=== PATIENT | male | born 1970 | race Caucasian/White ===

== ENCOUNTER 2021-12-03 16:09 | Inpatient (IN) | payer BC ==
[~2021-12-03 16:09] MED LIST: VANCOMYCIN 2,500 MG in SODIUM CHLORIDE 0.9% 500 ML 500 ML IVPB ONE
[2021-12-03 20:28] LABS: Glucose,Whole Blood 163 mg/dL (70-110)
[2021-12-03] MEDS ORDERED: LORazepam 1 MG TAB PO PRN (22:53)
[2021-12-03] MEDS ORDERED: NITROGLYCERIN SL TABS 0.4 MG TAB SUBLINGUAL PRN (22:55)
[2021-12-03] MEDS: KETOROLAC 15 MG/ML 1 ML VIAL IVP SCH (23:23)
[2021-12-03] MEDS: HYDROmorphone 1 MG/ML 1 ML SYRINGE IVP PRN (23:24)
[2021-12-03] MEDS: CEFEPIME 2 GM in SODIUM CHLORIDE 0.9% 100 ML IVPB SCH (23:24)
[2021-12-03] MEDS: ACETAMINOPHEN TAB 325 MG TAB PO PRN (23:36)
[2021-12-04 06:00] LABS: Glucose,Whole Blood 176 mg/dL (70-110)
[2021-12-04] MEDS: KETOROLAC 15 MG/ML 1 ML VIAL IVP SCH ×3 (06:07→17:26)
[2021-12-04] MEDS: PANTOPRAZOLE 40 MG TABLET PO SCH (06:08)
[2021-12-04] MEDS: HYDROmorphone 1 MG/ML 1 ML SYRINGE IVP PRN ×2 (06:08→22:16)
[2021-12-04] MEDS: INSULIN ASPART (NovoLOG) 100 UNIT/ML VIAL SQ SCH ×4 (06:08→22:15)
[2021-12-04 06:22] LABS: Basophils # (A) 0.1 k/uL (0-0.2); Basophils % (A) 1 %; Eosinophils # (A) 0.1 k/uL (0-0.7); Eosinophils % (A) 0 %; HCT 43.1 % (39.0-53.0); HGB 13.6 gm/dL (13.0-17.5); Lymphocytes # (A) 1.5 k/uL (1.0-4.8); Lymphocytes % (A) 9 %; MCH 28.1 pg (25.0-35.0); MCHC 31.6 g/dL (31.0-37.0); MCV 89.1 fL (80.0-100.0); Mean Platelet Volume 8.6; Monocytes # (A) 1.3 k/uL (0-1.0); Monocytes % (A) 8 %; Neutrophils % (A) 80 %; Platelet Count 486 k/uL (150-450); RBC 4.84 m/uL (4.30-5.90); RDW 12.6 % (11.5-15.5); WBC 16.3 k/uL (3.8-10.6)
[2021-12-04 06:36] LABS: African American GFR (CKD) >90 (>60 ml/min/1.73 sqM); Anion Gap 9 mmol/L; Blood Urea Nitrogen 13 mg/dL (9-20); Calcium 8.2 mg/dL (8.4-10.2); Carbon Dioxide 26 mmol/L (22-30); Chloride 96 mmol/L (98-107); Glucose 177 mg/dL (74-99); INR 1.1 (<1.2); Non-African American GFR(CKD) >90 (>60 ml/min/1.73 sqM); Partial Thromboplastin Time 26.8 sec (22.0-30.0); Potassium 4.7 mmol/L (3.5-5.1); Prothrombin Time 11.3 sec (9.0-12.0); Sodium 131 mmol/L (137-145)
[2021-12-04] MEDS: ALBUTEROL NEBULIZED 2.5 MG/3 ML INHALATION PRN ×4 (07:01→20:21)
[2021-12-04] MEDS ORDERED: VANCOMYCIN IV PER PHARMACY 1 EACH MISC MISCELLANE PRN (07:48)
[2021-12-04] MEDS: CEFEPIME 2 GM in SODIUM CHLORIDE 0.9% 100 ML IVPB SCH ×2 (08:28→15:17)
[2021-12-04] MEDS: FUROSEMIDE 10 MG/ML 4 ML VIAL IV SCH (08:28)
[2021-12-04] MEDS: ENOXAPARIN 40 MG/0.4 ML SYRINGE SQ SCH (08:28)
[2021-12-04 08:29] LABS: C Reactive Protein 23.3 mg/dL (<1.0)
[2021-12-04] MEDS: INSULIN DETEMIR (LEVEMIR) 100 UNIT/ML SYR SQ SCH (08:32)
[2021-12-04 08:39] LABS: ALT 29 U/L (4-49); Albumin 2.8 g/dL (3.5-5.0); Total Bilirubin 0.5 mg/dL (0.2-1.3); Total Protein 6.3 g/dL (6.3-8.2)
[2021-12-04] MEDS ORDERED: FENOFIBRATE 160 MG TAB PO SCH (09:00)
[2021-12-04 09:03] LABS: AST 36 U/L (17-59); Alkaline Phosphatase 169 U/L (38-126)
[2021-12-04] MEDS: COLCHICINE 0.6 MG EACH PO SCH (10:52)
--- NOTE | 2021-12-04 11:05 | P.PN ---
Subjective Patient was seen in consultation yesterday at [facility] He was admitted with an abnormal EKG This EKG showed inferior ST elevation with significant fairly diffuse LA depression consistent with pericarditis His history is consistent with pericarditis He had pneumonitis in October and was treated with oral doxycycline However he did not improve and when he came in yesterday he had a large right- sided pleural effusion which seems to be a loculated effusion His 2-D echo showed preserved LV systolic function at [facility] with very prominent posterior pericardial stripe consistent with pericarditis Yesterday I did not hear a rub His vitals are stable He was subsequently seen by the drag out worker and was transferred here for percutaneous lysis and drainage of the loculated effusion The plan is that if this does not work he will need a thoracoscopic drainage Yesterday he had an episode of atrial fibrillation but he is back in sinus rhythm Today he is resting comfortably in bed I don't hear clear-cut rub although there is a scratchy systolic sound No S3 gallop Reduced breath sounds right side with dullness to percussion No lower extremity edema Orthopnea TSH is normal at 3.1 C-reactive protein elevated BUN and creatinine normal Platelet count elevated White count elevated Impression Recent pneumonitis with a loculated right-sided effusion which is large Awaiting drainage of this loculated effusion Pericarditis Normal LV function by 2-D echo yesterday at [facility] Brief episode of atrial fibrillation, back in sinus rhythm now Plan Continue colchicine DC IV Lasix and switch to by mouth Lasix Continue diabetes management Statins Objective - Vital Signs Vital signs: Vital Signs Temp 98.1 F 12/04/21 08:00 Pulse 70 12/04/21 10:49 Resp 18 12/04/21 08:00 BP 135/63 12/04/21 08:00 Pulse Ox 94 L 12/04/21 08:00 FiO2 Intake & Output 12/03/21 12/04/21 12/04/21 18:59 06:59 18:59 Intake Total 590 Balance 590 Weight 121.3 kg 119.2 kg Intake: Intake, IV Titration 50 Amount Cefepime 2 gm In Sodium 50 Chloride 0.9% 100 ml @ 25 mls/hr IVPB Q8HR [facility] Rx# :[id number] Oral 540 - Labs CBC & Chem 7: 12/04/21 05:54 12/04/21 05:54 Labs: Abnormal Lab Results - Last 24 Hours (Table) 12/03/21 12/04/21 12/04/21 Range/Units 20:20 05:54 05:54 WBC 16.3 H (3.8-10.6) k/uL Plt Count 486 H (150-450) k/uL Neutrophils # 13.0 H (1.3-7.7) k/uL Monocytes # 1.3 H (0-1.0) k/uL ESR (0-15) mm/hr Sodium 131 L (137-145) mmol/L Chloride 96 L (98-107) mmol/L Creatinine 0.49 L (0.66-1.25) mg/dL Glucose 177 H (74-99) mg/dL POC Glucose (mg/dL) 163 H (70-110) mg/dL Calcium 8.2 L (8.4-10.2) mg/dL Alkaline Phosphatase 169 H (38-126) U/L C-Reactive Protein 23.3 H (<1.0) mg/dL Albumin 2.8 L (3.5-5.0) g/dL 12/04/21 12/04/21 Range/Units 05:54 05:58 WBC (3.8-10.6) k/uL Plt Count (150-450) k/uL Neutrophils # (1.3-7.7) k/uL Monocytes # (0-1.0) k/uL ESR 85 H (0-15) mm/hr Sodium (137-145) mmol/L Chloride (98-107) mmol/L Creatinine (0.66-1.25) mg/dL Glucose (74-99) mg/dL POC Glucose (mg/dL) 176 H (70-110) mg/dL Calcium (8.4-10.2) mg/dL Alkaline Phosphatase (38-126) U/L C-Reactive Protein (<1.0) mg/dL Albumin (3.5-5.0) g/dL
[2021-12-04] MEDS ORDERED: METOPROLOL TARTRATE 25 MG TAB PO STA (11:44)
[2021-12-04 11:57] LABS: Glucose,Whole Blood 225 mg/dL (70-110)
[2021-12-04] MEDS ORDERED: ALBUTEROL HFA INHALER INHALATION PRN (12:19)
[2021-12-04] MEDS ORDERED: DEXTROSE 50% SYRINGE 50 ML IVP PRN ×2 (12:21)
[2021-12-04] MEDS: ATORVASTATIN 40 MG TAB PO SCH (12:44)
--- NOTE | 2021-12-04 13:02 | P.CNPUL ---
History of Present Illness Consult date: 12/04/21 Reason for consult: dyspnea (Eliquis), pleural effusion History of present illness: 51-year-old male patient was seen in consultation at [facility] on 12/03/2021. I initiated the transfer to our hospital as the patient has a complicated loculated right-sided pleural effusion/empyema and the patient needed further expertise interventional radiology and thoracic surgery. The patient's history dates back to mid October when he came into [facility] with a right lung pneumonia. The patient was given antibiotics and steroids and went home. He continued to be symptomatic. He saw his primary care physician in one antibiotics were given. Subsequently, he started chest pain improved and the patient started having progressive worsening shortness of breath and some ongoing chest pain along the right chest. He came into [facility] and had significant this patient the right lung and a CAT scan of the chest showed a loculated right-sided pleural effusion with multiple pockets and right basilar atelectasis/consolidation. Left lung was essentially clear. The patient was started on a combination of antibiotics. I saw the patient and I recommended transfer. The patient's white cell count is at 16.3. Sodium level is at 131 with a BUN of 13 and a creatinine of 0.4. His current pulse ox is 94% on room air oxygen. He is obese and he uses inhalers for COPD. He is also known to have diabetes mellitus and hyperlipidemia. No 70 coronary artery disease. He has obstructive sleep apnea Review of Systems Constitutional: Reports fatigue, Reports lethargy, Reports malaise, Reports poor appetite Eyes: denies as per HPI, denies blurred vision, denies bulging eye, denies decreased vision, denies diplopia, denies discharge, denies dry eye, denies irritation, denies itching, denies pain, denies photophobia, denies loss of per ipheral vision, denies loss of vision, denies tunnel vision/blind spots Ears: deny: decreased hearing, ear discharge, earache, tinnitus Ears, nose, mouth and throat: Reports as per HPI Breasts: absent: as per HPI, gynecomastia Cardiovascular: Reports decreased exercise tolerance, Reports dyspnea on exertion Respiratory: Reports dyspnea Gastrointestinal: Reports as per HPI Genitourinary: Reports as per HPI Musculoskeletal: Reports as per HPI Musculoskeletal: absent: ankle pain, ankle stiffness, ankle swelling, as per HPI, elbow pain, elbow stiffness, elbow swelling, foot pain, foot stiffness, foot swelling, hand pain, hand stiffness, hand swelling, hip pain, hip stiff ness, hip swelling, knee pain, knee stiffness, knee swelling, shoulder pain, shoulder stiffness, shoulder swelling, wrist pain, wrist stiffness, wrist swelling Integumentary: Reports as per HPI Neurological: Reports as per HPI Psychiatric: Reports as per HPI Endocrine: Reports as per HPI Hematologic/Lymphatic: Reports as per HPI Allergic/Immunologic: Reports as per HPI Past Medical History Past Medical History: COPD, Diabetes Mellitus, GERD/Reflux, Sleep Apnea/CPAP/BIPAP Additional Past Medical History / Comment(s): does not wear a cpap History of Any Multi-Drug Resistant Organisms: None Reported Additional Past Surgical History / Comment(s): right wrist carparal tunnel Past Anesthesia/Blood Transfusion Reactions: No Reported Reaction Past Psychological History: No Psychological Hx Reported Smoking Status: Former smoker Past Alcohol Use History: None Reported Past Drug Use History: None Reported - Past Family History Father Family Medical History: Asthma, COPD Additional Family Medical History / Comment(s): smoker, welder experimental Mother Family Medical History: Cancer Additional Family Medical History / Comment(s): small cell lung, multiple stent, Medications and Allergies Home Medications Medication Instructions Recorded Confirmed Type Albuterol Inhaler [Ventolin Hfa 2 puff INHALATION RT-Q6H PRN 12/03/21 12/03/21 History Inhaler] Albuterol Nebulized [Ventolin 2.5 mg INHALATION RT-Q6H PRN 12/03/21 12/03/21 History Nebulized] Fenofibrate,Micronized 134 mg PO DAILY 12/03/21 12/03/21 History [Fenofibrate] Fluticasone/Umeclidin/Vilanter 2 puff INHALATION RT-DAILY 12/03/21 12/03/21 History [Trelegy Ellipta 100-62.5-25] Ibuprofen [Motrin] 600 mg PO Q8HR PRN 12/03/21 12/03/21 History Omeprazole 40 mg PO DAILY 12/03/21 12/03/21 History Pioglitazone [Actos] 30 mg PO DAILY 12/03/21 12/03/21 History sitaGLIPtin [Januvia] 100 mg PO DAILY 12/03/21 12/03/21 History Allergies Allergy/AdvReac Type Severity Reaction Status Date / Time insect venom Allergy Severe Anaphylaxis Verified 12/03/21 18:44 Physical Exam Vitals: Vital Signs Temp Pulse Pulse Resp BP Pulse Ox 12/04/21 11:49 67 18 12/04/21 11:05 72 12/04/21 10:49 70 12/04/21 08:00 98.1 F 67 18 135/63 94 L 12/04/21 07:20 68 12/04/21 07:04 68 12/04/21 04:00 98.3 F 103 H 24 135/79 94 L 12/03/21 23:30 101.8 F H 105 H 28 H 151/73 98 12/03/21 19:30 98.8 F 26 H 163/75 98 12/03/21 17:52 98.7 F 112 H 27 H 153/74 98 Intake and Output 12/03/21 12/04/21 12/04/21 22:59 06:59 14:59 Intake Total 590 Balance 590 Intake: Intake, IV Titration 50 Amount Cefepime 2 gm In Sodium 50 Chloride 0.9% 100 ml @ 25 mls/hr IVPB Q8HR [facility] Rx# :[id number] Oral 540 Other: Weight 121.3 kg 119.2 kg Gen. appearance, comfortable likely distress, currently on room air oxygen Head exam was generally normal. There was no scleral icterus or corneal arcus. Mucous membranes were moist. Neck was supple and without jugular venous distension, thyromegaly, or carotid bruits. Carotids were easily palpable bilaterally. There was no adenopathy. Lungs are diminished in the right lung base along with dullness to percussion in the right lung base. Cardiac exam revealed the PMI to be normally situated and sized. The rhythm was regular and no extrasystoles were noted during several minutes of auscultation. The first and second heart sounds were normal and physiologic splitting of the second heart sound was noted. There were no murmurs, rubs, clicks, or gallops. Abdominal exam revealed normal bowel sounds. The abdomen was soft, non-tender, and without masses, organomegaly, or appreciable enlargement of the abdominal aorta. Examination of the extremities revealed easily palpable radial, femoral and pedal pulses. There was no cyanosis, clubbing or edema. Examination of the skin revealed no evidence of significant rashes, suspicious appearing nevi or other concerning lesions. Neurologically, the patient is awake and alert and the patient does not have any focal neurological deficit. Cranial nerves are essentially intact. Results - Laboratory Findings CBC and BMP: 12/04/21 05:54 12/04/21 05:54 PT/INR, D-dimer PT 11.3 sec (9.0-12.0) 12/04/21 05:54 INR 1.1 (<1.2) 12/04/21 05:54 Abnormal lab findings: Abnormal Labs 12/03/21 12/04/21 12/04/21 20:20 05:54 05:54 WBC 16.3 H Plt Count 486 H Neutrophils # 13.0 H Monocytes # 1.3 H ESR Sodium 131 L Chloride 96 L Creatinine 0.49 L Glucose 177 H POC Glucose (mg/dL) 163 H Calcium 8.2 L Alkaline Phosphatase 169 H C-Reactive Protein 23.3 H Albumin 2.8 L 12/04/21 12/04/21 12/04/21 05:54 05:58 11:49 WBC Plt Count Neutrophils # Monocytes # ESR 85 H Sodium Chloride Creatinine Glucose POC Glucose (mg/dL) 176 H 225 H Calcium Alkaline Phosphatase C-Reactive Protein Albumin - Diagnostic Findings Chest x-ray: image reviewed CT scan - chest: image reviewed Assessment and Plan Plan: Loculated parapneumonic right-sided pleural effusion/possible empyema involving the right lung Recent right lower lobe pneumonia. On outpatient basis Shortness of breath secondary to above Chest pain secondary to above Diabetes mellitus maintained on Actos and Januvia on outpatient basis COPD maintained on Trelegy Ellipta on outpatient basis Obstructive sleep apnea not utilizing a device Plan Continue current antibiotic coverage with cefepime and vancomycin Interventional radiology consultation for a pigtail catheter insertion with subsequent alteplase treatment in an attempt to treat this loculated right-sided pleural effusion/empyema conservatively. If this intervention fails, we'll consult thoracic surgery for a thoracoscopic evaluation and drainage of the right lung. Continue pain control Resume all medications Incentive spirometer Blood sugar management We'll continue to follow
[2021-12-04] MEDS ORDERED: VANCOMYCIN 2,000 MG in SODIUM CHLORIDE 0.9% 500 ML 500 ML IVPB SCH (15:00)
[2021-12-04] MEDS: VANCOMYCIN 1,750 MG in SODIUM CHLORIDE 0.9% 500 ML 500 ML IVPB SCH ×2 (15:12→19:49)
[2021-12-04] MEDS: MORPHINE SULFATE 4 MG/ML SYRINGE IVP PRN (15:21)
[2021-12-04 16:39] LABS: Glucose,Whole Blood 213 mg/dL (70-110)
[2021-12-04 22:14] LABS: Glucose,Whole Blood 143 mg/dL (70-110)
[2021-12-05] MEDS: KETOROLAC 15 MG/ML 1 ML VIAL IVP SCH ×5 (00:37→23:02)
[2021-12-05] MEDS: CEFEPIME 2 GM in SODIUM CHLORIDE 0.9% 100 ML IVPB SCH ×3 (00:38→19:45)
[2021-12-05] MEDS: VANCOMYCIN 1,750 MG in SODIUM CHLORIDE 0.9% 500 ML 500 ML IVPB SCH ×3 (05:09→20:33)
[2021-12-05] MEDS: HYDROmorphone 1 MG/ML 1 ML SYRINGE IVP PRN ×3 (05:11→20:38)
[2021-12-05 06:05] LABS: Glucose,Whole Blood 92 mg/dL (70-110)
[2021-12-05] MEDS: INSULIN ASPART (NovoLOG) 100 UNIT/ML VIAL SQ SCH ×4 (06:08→20:33)
[2021-12-05] MEDS: PANTOPRAZOLE 40 MG TABLET PO SCH (06:50)
[2021-12-05] MEDS: SYMBICORT 80-4.5 MCG INHALER INHALATION SCH ×3 (07:43→20:14)
[2021-12-05] MEDS: IPRATROPIUM 0.5 MG/2.5 ML NEBU INHALATION SCH ×4 (07:43→20:11)
[2021-12-05] MEDS: FENOFIBRATE 160 MG TAB PO SCH (08:27)
[2021-12-05] MEDS: ATORVASTATIN 40 MG TAB PO SCH (08:27)
[2021-12-05] MEDS: COLCHICINE 0.6 MG EACH PO SCH (08:28)
--- NOTE | 2021-12-05 08:47 | P.GSCN ---
History of Present Illness Consult date: 12/05/21 Reason for Consult: Complicated right-sided loculated pleural effusion/empyema Requesting physician: Linette Morgan History of present illness: This is a 50-year-old obese gentleman who follows on an outpatient basis with Dr. Leobardo Wellington for primary care. He has a previous medical history of COPD, type 2 diabetes, obstructive sleep apnea without home CPAP use, GERD, and previous tobacco dependence with recent cessation. Apparently in mid October he reported to [facility] with a right-sided lung pneumonia. He was started on antibiotics and steroids and eventually sent home, however he c ontinued to be symptomatic. He saw his PCP and more antibiotics were given. Subsequently he developed chest pain and progressive shortness of breath. He again reported to [facility], CT scan of the chest demonstrated loculated right-sided pleural effusion with multiple pockets and right basilar atelectasis/consolidation. He was started on a combination of antibiotics and was seen by pulmonary medicine. Recommendations were made for transfer to [facility] for placement of pigtail catheter with thoracic surgery consultation to instill lytic therapy. Review of Systems Review of systems was completed and was negative except as noted - Constitutional Reports fatigue, Reports lethargy, Reports malaise, Reports poor appetite - Cardiovascular Reports decreased exercise tolerance, Reports dyspnea on exertion Past Medical History Past Medical History: COPD, Diabetes Mellitus, GERD/Reflux, Sleep Apnea/CPAP/BIPAP Additional Past Medical History / Comment(s): does not wear a cpap History of Any Multi-Drug Resistant Organisms: None Reported Additional Past Surgical History / Comment(s): right wrist carparal tunnel Past Anesthesia/Blood Transfusion Reactions: No Reported Reaction Past Psychological History: No Psychological Hx Reported Smoking Status: Former smoker Past Alcohol Use History: None Reported Past Drug Use History: None Reported Additional History: Quit smoking 3 weeks ago, prior to that smoked 3 packs a day for 40 years - Past Family History Father Family Medical History: Asthma, COPD Additional Family Medical History / Comment(s): smoker, welder setter electron beam machine; from COPD Mother Family Medical History: Cancer Additional Family Medical History / Comment(s): small cell lung, multiple stent; from lung cancer Medications and Allergies Home Medications Medication Instructions Recorded Confirmed Type Albuterol Inhaler [Ventolin Hfa 2 puff INHALATION RT-Q6H PRN 12/03/21 12/03/21 History Inhaler] Albuterol Nebulized [Ventolin 2.5 mg INHALATION RT-Q6H PRN 12/03/21 12/03/21 History Nebulized] Fenofibrate,Micronized 134 mg PO DAILY 12/03/21 12/03/21 History [Fenofibrate] Fluticasone/Umeclidin/Vilanter 2 puff INHALATION RT-DAILY 12/03/21 12/03/21 History [Trelegy Ellipta 100-62.5-25] Ibuprofen [Motrin] 600 mg PO Q8HR PRN 12/03/21 12/03/21 History Omeprazole 40 mg PO DAILY 12/03/21 12/03/21 History Pioglitazone [Actos] 30 mg PO DAILY 12/03/21 12/03/21 History sitaGLIPtin [Januvia] 100 mg PO DAILY 12/03/21 12/03/21 History Allergies Allergy/AdvReac Type Severity Reaction Status Date / Time insect venom Allergy Severe Anaphylaxis Verified 12/03/21 18:44 Surgical - Exam Vital Signs Temp Pulse Resp BP Pulse Ox 98.7 F 112 H 27 H 153/74 98 12/03/21 17:52 12/03/21 17:52 12/03/21 17:52 12/03/21 17:52 12/03/21 17:52 CONSTITUTIONAL: Awake and alert, appears comfortable, cooperative, well- developed, well-nourished, no pain, no acute distress, eating breakfast without difficulty EYES: Pupils equal, round, reactive to light, normal ocular movement ENT: Moist mucous membranes without oral lesions present NECK: No masses, no bruits, trachea midline RESPIRATORY: Lungs sounds very diminished on the right side. Respirations even, nonlabored. Currently on room air with oxygen saturation 95%. Strong cough. No chest wall deformities. No clubbing or cyanosis present CARDIOVASCULAR: S1, S2 present. Regular rate and rhythm, sinus rhythm on telemetry. Palpable peripheral pulses bilaterally. Trace bilateral lower extremity edema present. No calf pain or tenderness noted. GASTROINTESTINAL: Abdomen soft, nontender, nondistended, obese without masses or organomegaly noted. There is no rebound or guarding present. Active bowel sounds present 4 quadrants. GENITOURINARY: Deferred INTEGUMENTARY: Skin is warm and dry with evidence of good perfusion. NEUROLOGIC: Cranial nerves II through XII intact, normal coordination, no obvious motor or sensory deficits, speech is normal MUSKULOSKELETAL: Able to move all extremities, strength equal bilaterally, nor mal posture PSYCHIATRIC: Alert and oriented to person place and time, appropriate affect, intact judgment and insight Results - Labs 12/06/21 08:05 12/06/21 08:05 Abnormal Lab Results - Last 24 Hours (Table) 12/04/21 12/04/21 12/04/21 Range/Units 05:54 05:54 11:49 ESR 85 H (0-15) mm/hr POC Glucose (mg/dL) 225 H (70-110) mg/dL Alkaline Phosphatase 169 H (38-126) U/L Albumin 2.8 L (3.5-5.0) g/dL 12/04/21 12/04/21 Range/Units 16:29 22:12 ESR (0-15) mm/hr POC Glucose (mg/dL) 213 H 143 H (70-110) mg/dL Alkaline Phosphatase (38-126) U/L Albumin (3.5-5.0) g/dL Microbiology - Last 24 Hours (Table) 12/04/21 15:30 Sputum Culture - Preliminary Sputum Diabetes panel 12/04/21 Range/Units 05:54 AST 36 (17-59) U/L ALT 29 (4-49) U/L Alkaline Phosphatase 169 H (38-126) U/L Total Protein 6.3 (6.3-8.2) g/dL Albumin 2.8 L (3.5-5.0) g/dL Thyroid panel 12/04/21 Range/Units 05:54 TSH 3.140 (0.465-4.680) mIU/L Calcium panel 12/04/21 Range/Units 05:54 Albumin 2.8 L (3.5-5.0) g/dL Pituitary panel 12/04/21 Range/Units 05:54 TSH 3.140 (0.465-4.680) mIU/L Adrenal panel 12/04/21 Range/Units 05:54 Total Bilirubin 0.5 (0.2-1.3) mg/dL AST 36 (17-59) U/L ALT 29 (4-49) U/L Alkaline Phosphatase 169 H (38-126) U/L Total Protein 6.3 (6.3-8.2) g/dL Albumin 2.8 L (3.5-5.0) g/dL Assessment and Plan Assessment: 1. Loculated parapneumonic right-sided pleural effusion/possible empyema involving the right lung 2. Recent history of right lower lobe pneumonia 3. Shortness of breath, chest pain secondary to above 4. COPD 5. Previous heavy tobacco dependence with recent cessation 6. Obstructive sleep apnea without home CPAP use 7. Type 2 diabetes 8. GERD Plan: The patient was seen and examined sitting up in a recliner on the cardiac stepdown unit eating breakfast in no acute distress. Remains in sinus rhythm, hemodynamically stable. Currently on room air with oxygen saturation in the mid 90s. The case was discussed in detail with Dr. Stanley and Dr. Morgan. Our recommendations are for a pigtail catheter be to be placed by interventional radiology with subsequent instillation of lytic therapy. This was discussed in detail with the patient, risks and benefits were reviewed, all questions were answered. Interventional radiology has been consulted. Lovenox will be held this morning in anticipation of placement of catheter. Incentive spirometry ordered and should be encouraged. Continue IV antibiotics per infectious disease. GI/DVT prophylaxis. Medical management of other comorbidities per primary care service. More recommendations to follow. Thank you Dr. Morgan for this consult. We look forward to working with you in the care of your patient. I have personally seen and examined the patient, performed the documentation and the assessment and plan as written. Number of minutes spent on the visit: 30. GIOVANI Marino Patient seen and examined. All diagnostic studies reviewed. Para-pneumonic effusion warranting pigtail insertion for fibrinolytic Rx as a first step. Discussed with Dr Morgan. Time spent 30 minutes. ANGELES STANLEY MD
--- NOTE | 2021-12-05 09:29 | P.HPIM ---
History of Present Illness H&P Date: 12/04/21 This is a 50-year-old male who was recently admitted at [facility] although sent here for further evaluation from cardiothoracic surgery for pericarditis and is being closely monitored. Multiple medical consultations placed including infectious disease, cardiology, pulmonary and cardiothoracic surgery. Patient was found to have flulike symptoms and right side when pain and found to have loculated pleural effusions on the right from CT with a peripneumonic effusion. Patient was placed on IV antibiotics with infectious disease consultation. Patient started having worsening chest pain and shortness of breath and went back to the hospital and sent over to [facility] for further evaluation. Initially patient's white count was elevated and sodium was slightly low and patient's oxygen saturations were above 90% on room air. Patient does have a past medical history of COPD, diabetes, GERD, sleep apnea but does not wear a CPAP, former smoker. Patient follows with Dr. Wellington in the outpatient setting. Sputum culture was obtained and pending. REVIEW OF SYSTEMS: CONSTITUTIONAL: No fever, no malaise, no fatigue. Patient reports chills and shortness of breath HEENT: No recent visual problems or hearing problems. Denied any sore throat. CARDIOVASCULAR: No chest pain, orthopnea, PND, no palpitations, no syncope. PULMONARY no hemoptysis. Reports chills, shortness of breath, cough GASTROINTESTINAL: No diarrhea, no nausea, no vomiting, no abdominal pain. NEUROLOGICAL: No headaches, no weakness, no numbness. HEMATOLOGICAL: Denies any bleeding or petechiae. GENITOURINARY: Denies any burning micturition, frequency, or urgency. MUSCULOSKELETAL/RHEUMATOLOGICAL: Denies any joint pain, swelling, or any muscle pain. reports resolved right hip pain ENDOCRINE: Denies any polyuria or polydipsia. The rest of the 14-point review of systems is negative. PHYSICAL EXAMINATION: GENERAL: The patient is alert and oriented x3, not in any acute distress. Well developed, well nourished. HEENT: Pupils are round and equally reacting to light. EOMI. No scleral icterus. No conjunctival pallor. Normocephalic, atraumatic. No pharyngeal erythema. No thyromegaly. CARDIOVASCULAR: S1 and S2 present. No murmurs, rubs, or gallops. PULMONARY: Bilateral diminished breath sounds with some scattered rhonchi noted. ABDOMEN: Soft, nontender, nondistended, normoactive bowel sounds. No palpable organomegaly. MUSCULOSKELETAL: No joint swelling or deformity. EXTREMITIES: No cyanosis, clubbing, or pedal edema. NEUROLOGICAL: Gross neurological examination did not reveal any focal deficits. SKIN: No rashes. Assessment: Right side chest pain with loculated pleural effusion Peripneumonic effusion secondary to pleural effusion with possible empyema of the right lung Recent right lower lobe pneumonia, was on antibiotics and steroids outpatient Shortness of breath secondary to above Diabetes mellitus type 2 COPD, not in exacerbation History of obstructive sleep apnea although does not wear a CPAP Gastroesophageal reflux disease Former smoker GI prophylaxis DVT prophylaxis: on eliquis Full code Plan: Recommend IV antibiotics with infectious disease consultation Cardiothoracic surgery consulted and pending at this time Pulmonary and cardiology consulted and following Recommend resuming home meds and continuing with breathing inhalational treatments Patient is being started on IV Lasix along with colchicine per cardiology Recommend repeat labs Recommend Accu-Cheks before meals and at bedtime along with sliding scale and long-acting insulin The impression and plan of care has been dictated as a scribe by Roya Chandra, Nurse Practitioner as directed. MD Tammy I have performed a history and examination and MDM of this patient, discussed the same with the dictator, and agree with the dictator's assessment and plan as written ,documented as a scribe. Based on total visit time, I have performed more than 50% of the visit. Past Medical History Past Medical History: COPD, Diabetes Mellitus, GERD/Reflux, Sleep Apnea/CPAP/BIPAP Additional Past Medical History / Comment(s): does not wear a cpap History of Any Multi-Drug Resistant Organisms: None Reported Additional Past Surgical History / Comment(s): right wrist carparal tunnel Past Anesthesia/Blood Transfusion Reactions: No Reported Reaction Past Psychological History: No Psychological Hx Reported Smoking Status: Former smoker Past Alcohol Use History: None Reported Past Drug Use History: None Reported - Past Family History Father Family Medical History: Asthma, COPD Additional Family Medical History / Comment(s): smoker, steel welder Mother Family Medical History: Cancer Additional Family Medical History / Comment(s): small cell lung, multiple stent, Medications and Allergies Home Medications Medication Instructions Recorded Confirmed Type Albuterol Inhaler [Ventolin Hfa 2 puff INHALATION RT-Q6H PRN 12/03/21 12/03/21 History Inhaler] Albuterol Nebulized [Ventolin 2.5 mg INHALATION RT-Q6H PRN 12/03/21 12/03/21 H istory Nebulized] Fenofibrate,Micronized 134 mg PO DAILY 12/03/21 12/03/21 History [Fenofibrate] Fluticasone/Umeclidin/Vilanter 2 puff INHALATION RT-DAILY 12/03/21 12/03/21 History [Trelegy Ellipta 100-62.5-25] Ibuprofen [Motrin] 600 mg PO Q8HR PRN 12/03/21 12/03/21 History Omeprazole 40 mg PO DAILY 12/03/21 12/03/21 History Pioglitazone [Actos] 30 mg PO DAILY 12/03/21 12/03/21 History sitaGLIPtin [Januvia] 100 mg PO DAILY 12/03/21 12/03/21 History Allergies Allergy/AdvReac Type Severity Reaction Status Date / Time insect venom Allergy Severe Anaphylaxis Verified 12/03/21 18:44 Physical Exam Vitals: Vital Signs Temp Pulse Pulse Resp BP Pulse Ox 12/04/21 11:49 67 18 12/04/21 11:05 72 12/04/21 10:49 70 12/04/21 08:00 98.1 F 67 18 135/63 94 L 12/04/21 07:20 68 12/04/21 07:04 68 12/04/21 04:00 98.3 F 103 H 24 135/79 94 L 12/03/21 23:30 101.8 F H 105 H 28 H 151/73 98 12/03/21 19:30 98.8 F 26 H 163/75 98 12/03/21 17:52 98.7 F 112 H 27 H 153/74 98 Intake and Output 12/03/21 12/04/21 12/04/21 22:59 06:59 14:59 Intake Total 590 Balance 590 Intake: Intake, IV Titration 50 Amount Cefepime 2 gm In Sodium 50 Chloride 0.9% 100 ml @ 25 mls/hr IVPB Q8HR [facility] Rx# :[id number] Oral 540 Other: Weight 121.3 kg 119.2 kg Results CBC & Chem 7: 12/04/21 05:54 12/04/21 05:54 Labs: Abnormal Lab Results - Last 24 Hours (Table) 12/03/21 12/04/21 12/04/21 Range/Units 20:20 05:54 05:54 WBC 16.3 H (3.8-10.6) k/uL Plt Count 486 H (150-450) k/uL Neutrophils # 13.0 H (1.3-7.7) k/uL Monocytes # 1.3 H (0-1.0) k/uL ESR (0-15) mm/hr Sodium 131 L (137-145) mmol/L Chloride 96 L (98-107) mmol/L Creatinine 0.49 L (0.66-1.25) mg/dL Glucose 177 H (74-99) mg/dL POC Glucose (mg/dL) 163 H (70-110) mg/dL Calcium 8.2 L (8.4-10.2) mg/dL Alkaline Phosphatase 169 H (38-126) U/L C-Reactive Protein 23.3 H (<1.0) mg/dL Albumin 2.8 L (3.5-5.0) g/dL 12/04/21 12/04/21 12/04/21 Range/Units 05:54 05:58 11:49 WBC (3.8-10.6) k/uL Plt Count (150-450) k/uL Neutrophils # (1.3-7.7) k/uL Monocytes # (0-1.0) k/uL ESR 85 H (0-15) mm/hr Sodium (137-145) mmol/L Chloride (98-107) mmol/L Creatinine (0.66-1.25) mg/dL Glucose (74-99) mg/dL POC Glucose (mg/dL) 176 H 225 H (70-110) mg/dL Calcium (8.4-10.2) mg/dL Alkaline Phosphatase (38-126) U/L C-Reactive Protein (<1.0) mg/dL Albumin (3.5-5.0) g/dL Thrombosis Risk Factor Assmnt - DVT/VTE Prophylaxis DVT/VTE Prophylaxis: Pharmacologic Prophylaxis ordered - Choose All That Apply Any of the Below Risk Factors Present?: Yes Each Factor Represents 1 point: Abnormal pulmonary function (COPD), Age 41-60 years, Obesity (BMI >25) Other Risk Factors: No Thrombosis Risk Factor Assessment Total Risk Factor Score: 3 Thrombosis Risk Factor Assessment Level: Moderate Risk Assessment and Plan Time with Patient: Greater than 30
[2021-12-05] MEDS: INSULIN DETEMIR (LEVEMIR) 100 UNIT/ML SYR SQ SCH (10:20)
[2021-12-05] MEDS ORDERED: VANCOMYCIN TROUGH DUE 1 EACH MISC MISCELLANE ONE (11:00)
--- NOTE | 2021-12-05 11:06 | P.PN ---
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 Patient was transferred from [facility] secondary to loculated right-sided pleural effusion. Patient has a history of pneumonia and was treated last month with antibiotics. Patient had a echocardiogram completed at [facility] which revealed normal LV function. Patient is sitting up in the chair this morning. He denies chest pain or pressure. Denies SOB. PHYSICAL EXAM: VITAL SIGNS: Reviewed. GENERAL: Well-developed in no acute distress. NECK: Supple. No JVD or thyromegaly LUNGS: Respirations even and unlabored. Lungs diminished on the right side. HEART: Regular rate and rhythm. S1 and S2 heard. EXTREMITIES: Normal range of motion. No clubbing or cyanosis. Peripheral pulses intact. No lower extremity edema ASSESSMENT: Pericarditis Recent pneumonia/pneumonitis Loculated right-sided pleural effusion Isolated episode of atrial fibrillation, per cardiology documentation 12/04/2021 Diabetes COPD Former nicotine dependence PLAN: Continue current cardiac medications Discontinue IV lasix. Begin oral lasix. CT Surgery and pulmonary following. Plan for pigtail catheter insertion by IR. Further recommendations pending patient course Nurse practitioner note has been reviewed by physician. Signing provider agrees with the documented findings, assessment, and plan of care. Objective - Vital Signs Vital signs: Vital Signs Temp 97.8 F 12/05/21 07:44 Pulse 90 12/05/21 08:59 Resp 20 12/05/21 08:59 BP 149/76 12/05/21 07:44 Pulse Ox 98 12/05/21 07:44 FiO2 Intake & Output 12/04/21 12/05/21 12/05/21 18:59 06:59 18:59 Intake Total 118 1040 180 Output Total 450 Balance 118 590 180 Weight 120.6 kg Intake: Intake, IV Titration 500 Amount Vancomycin 1,750 mg In 500 Sodium Chloride 0.9% 500 ml 500 ml @ 167 mls/hr IVPB Q8H [facility] Rx#: [id number] Oral 118 540 180 Output: Urine 450 Other: Voiding Method Toilet Urinal - Labs CBC & Chem 7: 12/04/21 05:54 12/04/21 05:54 Labs: Abnormal Lab Results - Last 24 Hours (Table) 12/04/21 12/04/21 12/04/21 Range/Units 11:49 16:29 22:12 POC Glucose (mg/dL) 225 H 213 H 143 H (70-110) mg/dL Microbiology - Last 24 Hours (Table) 12/04/21 15:30 Gram Stain - Preliminary Sputum Sputum Culture - Preliminary
[2021-12-05 11:34] LABS: HCT 44.8 % (39.0-53.0); HGB 13.8 gm/dL (13.0-17.5); Hypochromasia Slight; MCH 27.6 pg (25.0-35.0); MCHC 30.8 g/dL (31.0-37.0); MCV 89.4 fL (80.0-100.0); Mean Platelet Volume 8.1; Platelet Count 555 k/uL (150-450); RBC 5.01 m/uL (4.30-5.90); RDW 12.7 % (11.5-15.5); WBC 10.6 k/uL (3.8-10.6)
[2021-12-05 11:43] LABS: African American GFR (CKD) >90 (>60 ml/min/1.73 sqM); Anion Gap 10 mmol/L; Blood Urea Nitrogen 13 mg/dL (9-20); Calcium 8.3 mg/dL (8.4-10.2); Carbon Dioxide 29 mmol/L (22-30); Chloride 93 mmol/L (98-107); Glucose 163 mg/dL (74-99); Non-African American GFR(CKD) >90 (>60 ml/min/1.73 sqM); Potassium 4.1 mmol/L (3.5-5.1); Sodium 132 mmol/L (137-145)
[2021-12-05] MEDS ORDERED: ALTEPLASE 10 MG in SODIUM CHLORIDE 0.9% 50 ML IRRIGATION ONE (12:55)
[2021-12-05] MEDS ORDERED: DORNASE ALFA 5 MG in SODIUM CHLORIDE 0.9% 50 ML IRRIGATION ONE (12:55)
[2021-12-05 19:09] LABS: Glucose,Whole Blood 146 mg/dL (70-110)
[2021-12-05 19:09] LABS: Glucose,Whole Blood 262 mg/dL (70-110)
[2021-12-05] MEDS: ENOXAPARIN 40 MG/0.4 ML SYRINGE SQ SCH (19:44)
[2021-12-05] MEDS: ALBUTEROL NEBULIZED 2.5 MG/3 ML INHALATION PRN (20:13)
[2021-12-05 20:17] LABS: Glucose,Whole Blood 207 mg/dL (70-110)
--- NOTE | 2021-12-05 21:09 | P.PN ---
Subjective Progress Note Date: 12/05/21 Principal diagnosis: Right sided empyema Patient was seen today on 12/05/2021, patient had a right sided pigtail catheter placement by interventional radiology, and gross pus is being drained from the right sided empyema. Patient is already being seen by infectious disease, and abigail fields will be seen by thoracic surgery for possible alteplase infusion in the right pleural space. Clinically the patient is feeling much better. Breathing a lot easier. Cultures are pending. WBC count today is 10.6 hemoglobin is 13.8 electrolytes are normal renal profile is normal Objective - Vital Signs Vital signs: Vital Signs Temp 97.3 F L 12/05/21 11:25 Pulse 87 12/05/21 20:25 Resp 20 12/05/21 12:18 BP 158/77 12/05/21 12:18 Pulse Ox 97 12/05/21 12:18 FiO2 Intake & Output 12/05/21 12/05/21 12/06/21 06:59 18:59 06:59 Intake Total 1040 180 Output Total 450 Balance 590 180 Weight 120.6 kg Intake: Intake, IV Titration 500 Amount Vancomycin 1,750 mg In 500 Sodium Chloride 0.9% 500 ml 500 ml @ 167 mls/hr IVPB Q8H [facility] Rx#: [id number] Oral 540 180 Output: Urine 450 Other: Voiding Method Toilet Urinal # Voids 1 - Exam Physical Exam: Revealed 50-year-old white male in no distress on room air. Head: Atraumatic, normocephalic. HEENT:[Neck is supple.] [No neck masses.] [No thyromegaly.] [No JVD.] Chest: [Diminished breath sounds and dullness at the right base, pigtail catheter connected to Pleur-evac is noted with gross pus draining into the pl eural VAC. Cardiac Exam: [Normal S1 and S2, no S3 gallop, no murmur.] Abdomen: [Soft, nontender, no megaly, no rebound, no guarding, normal bowel sounds.] Extremities: [No clubbing, no edema, no cyanosis.] Neurological Exam: [No focal neurologic deficit.] Alert oriented 3 focal deficits. Psychiatric: Normal mood, affect and normal mental status examination. Skin: No rashes. - Labs CBC & Chem 7: 12/05/21 11:06 12/05/21 11:06 Labs: Abnormal Lab Results - Last 24 Hours (Table) 12/04/21 12/05/21 12/05/21 Range/Units 22:12 11:06 11:06 MCHC 30.8 L (31.0-37.0) g/dL Plt Count 555 H (150-450) k/uL Sodium (137-145) mmol/L Chloride (98-107) mmol/L Creatinine (0.66-1.25) mg/dL Glucose (74-99) mg/dL POC Glucose (mg/dL) 143 H (70-110) mg/dL Hemoglobin A1c 11.4 H (0.0-6.0) % Calcium (8.4-10.2) mg/dL 12/05/21 12/05/21 12/05/21 Range/Units 11:06 12:57 16:39 MCHC (31.0-37.0) g/dL Plt Count (150-450) k/uL Sodium 132 L (137-145) mmol/L Chloride 93 L (98-107) mmol/L Creatinine 0.57 L (0.66-1.25) mg/dL Glucose 163 H (74-99) mg/dL POC Glucose (mg/dL) 146 H 262 H (70-110) mg/dL Hemoglobin A1c (0.0-6.0) % Calcium 8.3 L (8.4-10.2) mg/dL 12/05/21 Range/Units 20:15 MCHC (31.0-37.0) g/dL Plt Count (150-450) k/uL Sodium (137-145) mmol/L Chloride (98-107) mmol/L Creatinine (0.66-1.25) mg/dL Glucose (74-99) mg/dL POC Glucose (mg/dL) 207 H (70-110) mg/dL Hemoglobin A1c (0.0-6.0) % Calcium (8.4-10.2) mg/dL Microbiology - Last 24 Hours (Table) 12/04/21 15:30 Gram Stain - Preliminary Sputum Sputum Culture - Preliminary Assessment and Plan Assessment: Impression: Acute right sided empyema, status post pigtail catheter placement by interventional radiology Recent right lower lobe pneumonia treated on outpatient basis Type 2 diabetes. COPD, maintained on Trelegy Ellipta on outpatient basis Obstructive sleep apnea syndrome not compliant with CPAP. Recommendation: Continue antibiotics cefepime/vancomycin and cultures are pending. Continue bronchodilators. Thoracic surgery to see on consultation for alteplase infusion Infectious disease to see on consultation. Continue incentive spirometry Resume home meds We will continue to follow Time with Patient: Less than 30
--- NOTE | 2021-12-05 23:31 | P.PN ---
Subjective Progress Note Date: 12/05/21 This is a 50-year-old male who was recently admitted at [facility] although sent here for further evaluation from cardiothoracic surgery for pericarditis and is being closely monitored. Multiple medical consultations placed including infectious disease, cardiology, pulmonary and cardiothoracic surgery. Patient was found to have flulike symptoms and right side when pain and found to have loculated pleural effusions on the right from CT with a peripneumonic effusion. Patient was placed on IV antibiotics with infectious disease consultation. Patient started having worsening chest pain and shortness of breath and went back to the hospital and sent over to [facility] for further evaluation. Initially patient's white count was elevated and sodium was slightly low and patient's oxygen saturations were above 90% on room air. Patient does have a past medical history of COPD, diabetes, GERD, sleep apnea but does not wear a CPAP, former smoker. Patient follows with Dr. Wellington in the outpatient setting. Sputum culture was obtained and pending. 12/05/2021 Patient is seen and evaluated this morning and follow-up and has been evaluated by cardiothoracic surgery recommending interventional radiology consultation for possible pigtail placement. Patient is also being followed closely by infectious disease and maintained on IV antibiotics and will continue. Awaiting pigtail catheter placement for right side empyema. Continue with pain management. Patient is afebrile and denies chest pain. Encouraged incentive spirometer use at least 10 times per hour while awake. Recommend repeat labs and possible chest xray in the am. Review of systems: Constitutional: No reports of fatigue, fever, or chills Cardiovascular: No reports of chest pain or palpitations Respiratory: No reports of worsening shortness of breath or cough GI: No reports of nausea, vomiting, or diarrhea : No reports of dysuria or retention Neurovascular: No reports of weakness or numbness All medications have been reviewed Active Medications Acetaminophen (Acetaminophen Tab 325 Mg Tab) 650 mg PO Q4HR PRN PRN Reason: Fever and/or Mild Pain Last Admin: 12/03/21 23:36 Dose: 650 mg Albuterol Sulfate (Albuterol Hfa Inhaler) 2 puff INHALATION RT-Q6H PRN PRN Reason: Shortness Of Breath Albuterol Sulfate (Albuterol Nebulized 2.5 Mg/3 Ml) 2.5 mg INHALATION RT-Q6H PRN PRN Reason: Shortness Of Breath Last Admin: 12/04/21 20:21 Dose: 2.5 mg Atorvastatin Calcium (Atorvastatin 40 Mg Tab) 40 mg PO DAILY [facility] Last Admin: 12/05/21 08:27 Dose: 40 mg Budesonide/Formoterol Fumarate (Symbicort 80-4.5 Mcg Inhaler) 2 puff INHALATION RT-BID [facility] Last Admin: 12/05/21 07:43 Dose: 2 puff Colchicine (Colchicine 0.6 Mg Each) 0.6 mg PO DAILY [facility] Last Admin: 12/05/21 08:28 Dose: 0.6 mg Dextrose/Water (Dextrose 50% Syringe 50 Ml) 25 ml IVP PER PROTOCOL PRN; Protocol PRN Reason: Hypoglycemia Dextrose/Water (Dextrose 50% Syringe 50 Ml) 50 ml IVP PER PROTOCOL PRN; Protocol PRN Reason: Hypoglycemia Enoxaparin Sodium (Enoxaparin 40 Mg/0.4 Ml Syringe) 40 mg SQ DAILY [facility] Last Admin: 12/04/21 08:28 Dose: 40 mg Fenofibrate (Fenofibrate 160 Mg Tab) 160 mg PO DAILY [facility] Last Admin: 12/05/21 08:27 Dose: 160 mg Furosemide (Furosemide 40 Mg Tab) 40 mg PO DAILY [facility] Hydromorphone HCl (Hydromorphone 1 Mg/Ml 1 Ml Syringe) 1 mg IVP Q2HR PRN PRN Reason: Pain Last Admin: 12/05/21 11:17 Dose: 1 mg Cefepime HCl 2 gm/ Sodium (Chloride) 100 mls @ 25 mls/hr IVPB Q8HR [facility]; Protocol Last Admin: 12/05/21 10:20 Dose: 25 mls/hr Vancomycin HCl 1,750 mg/ (Sodium Chloride) 500 mls @ 167 mls/hr IVPB Q8H [facility] Last Admin: 12/05/21 05:09 Dose: 167 mls/hr Insulin Aspart (Insulin Aspart (Novolog) 100 Unit/Ml Vial) 0 unit SQ ACHS [facility]; Protocol Last Admin: 12/05/21 06:08 Dose: Not Given Insulin Detemir (Insulin Detemir (Levemir) 100 Unit/Ml Syr) 40 unit SQ DAILY@0900 [facility] Last Admin: 12/05/21 10:20 Dose: 40 unit Ipratropium Goehner (Ipratropium 0.5 Mg/2.5 Ml Nebu) 0.5 mg INHALATION RT-QID [facility] Last Admin: 12/05/21 11:20 Dose: Not Given Ketorolac Tromethamine (Ketorolac 15 Mg/Ml 1 Ml Vial) 15 mg IVP Q6HR [facility] Stop: 12/06/21 22:53 Last Admin: 12/05/21 05:09 Dose: 15 mg Lorazepam (Lorazepam 1 Mg Tab) 1 mg PO Q6HR PRN PRN Reason: Anxiety Morphine Sulfate (Morphine Sulfate 4 Mg/Ml Syringe) 4 mg IVP Q2HR PRN PRN Reason: Pain Last Admin: 12/04/21 15:21 Dose: 4 mg Nitroglycerin (Nitroglycerin Sl Tabs 0.4 Mg Tab) 0.4 mg SUBLINGUAL Q5M PRN PRN Reason: Chest Pain Ondansetron HCl (Ondansetron 4 Mg/2 Ml Vial) 4 mg IVP Q4HR PRN PRN Reason: Nausea And Vomiting Pantoprazole Sodium (Pantoprazole 40 Mg Tablet) 40 mg PO AC-BRKFST [facility] Last Admin: 12/05/21 06:50 Dose: 40 mg PHYSICAL EXAMINATION: GENERAL: The patient is alert and oriented x3, not in any acute distress. Well developed, well nourished. HEENT: Pupils are round and equally reacting to light. EOMI. No scleral icterus. No conjunctival pallor. Normocephalic, atraumatic. No pharyngeal erythema. No thyromegaly. CARDIOVASCULAR: S1 and S2 present. No murmurs, rubs, or gallops. PULMONARY: Bilateral diminished breath sounds with some scattered rhonchi noted. ABDOMEN: Soft, nontender, nondistended, normoactive bowel sounds. No palpable organomegaly. MUSCULOSKELETAL: No joint swelling or deformity. EXTREMITIES: No cyanosis, clubbing, or pedal edema. NEUROLOGICAL: Gross neurological examination did not reveal any focal deficits. SKIN: No rashes. Assessment: Right side chest pain with loculated pleural effusion Peripneumonic effusion secondary to pleural effusion with possible empyema of the right lung Recent right lower lobe pneumonia, was on antibiotics and steroids outpatient Shortness of breath secondary to above Diabetes mellitus type 2 COPD, not in exacerbation History of obstructive sleep apnea although does not wear a CPAP Gastroesophageal reflux disease Former smoker GI prophylaxis DVT prophylaxis: on eliquis Full code Plan: Recommend IV antibiotics with infectious disease following Cardiothoracic surgery consulted and have consulted IR for pigtail catheter placement Pulmonary and cardiologyfollowing Recommend resuming home meds and continuing with breathing inhalational treatments Patient is being started on IV Lasix along with colchicine per cardiology Recommend repeat labs Recommend Accu-Cheks before meals and at bedtime along with sliding scale and long-acting insulin The impression and plan of care has been dictated as a scribe by Roya Chandra, Nurse Practitioner as directed. MD Lima I have performed a history and examination and MDM of this patient, discussed the same with the dictator, and agree with the dictator's assessment and plan as written ,documented as a scribe. Based on total visit time, I have performed more than 50% of the visit. Objective - Vital Signs Vital signs: Vital Signs Temp 97.8 F 12/05/21 07:44 Pulse 90 12/05/21 08:59 Resp 20 12/05/21 08:59 BP 149/76 12/05/21 07:44 Pulse Ox 98 12/05/21 07:44 FiO2 Intake & Output 12/04/21 12/05/21 12/05/21 18:59 06:59 18:59 Intake Total 118 1040 180 Output Total 450 Balance 118 590 180 Weight 120.6 kg Intake: Intake, IV Titration 500 Amount Vancomycin 1,750 mg In 500 Sodium Chloride 0.9% 500 ml 500 ml @ 167 mls/hr IVPB Q8H [facility] Rx#: [id number] Oral 118 540 180 Output: Urine 450 - Labs CBC & Chem 7: 12/05/21 11:06 12/05/21 11:06 Labs: Abnormal Lab Results - Last 24 Hours (Table) 12/04/21 12/04/21 12/04/21 Range/Units 05:54 11:49 16:29 ESR 85 H (0-15) mm/hr POC Glucose (mg/dL) 225 H 213 H (70-110) mg/dL 12/04/21 Range/Units 22:12 ESR (0-15) mm/hr POC Glucose (mg/dL) 143 H (70-110) mg/dL Microbiology - Last 24 Hours (Table) 12/04/21 15:30 Gram Stain - Preliminary Sputum Sputum Culture - Preliminary
[2021-12-06] MEDS: CEFEPIME 2 GM in SODIUM CHLORIDE 0.9% 100 ML IVPB SCH ×4 (00:03→23:21)
[2021-12-06] MEDS: HYDROmorphone 1 MG/ML 1 ML SYRINGE IVP PRN ×2 (03:19→20:52)
[2021-12-06] MEDS: VANCOMYCIN 1,750 MG in SODIUM CHLORIDE 0.9% 500 ML 500 ML IVPB SCH ×3 (04:08→20:52)
[2021-12-06 05:26] LABS: Appearance,BF Cloudy; Color,BF Yellow
[2021-12-06 05:40] LABS: Nucleated Cells, Body Fluid 1095000 /uL; RBC, Body Fluid 0 /uL
[2021-12-06 06:05] LABS: Glucose,Whole Blood 160 mg/dL (70-110)
[2021-12-06] MEDS: INSULIN ASPART (NovoLOG) 100 UNIT/ML VIAL SQ SCH ×4 (06:18→20:38)
[2021-12-06] MEDS: PANTOPRAZOLE 40 MG TABLET PO SCH (06:18)
[2021-12-06] MEDS: KETOROLAC 15 MG/ML 1 ML VIAL IVP SCH ×3 (06:19→18:02)
[2021-12-06 06:21] LABS: Mononuclear WBC,Body Fluid 67 %; Polynuclear WBC,Body Fluid 33 %; Total Cells Counted,Body Fluid 100
[2021-12-06] MEDS: SYMBICORT 80-4.5 MCG INHALER INHALATION SCH ×2 (07:10→20:44)
[2021-12-06] MEDS: IPRATROPIUM 0.5 MG/2.5 ML NEBU INHALATION SCH ×4 (07:10→20:44)
--- NOTE | 2021-12-06 08:06 | P.PN ---
Subjective Progress Note Date: 12/06/21 Principal diagnosis: Loculated parapneumonic right-sided pleural effusion/possible empyema involving the right lung. Recent history of right lower lobe pneumonia, history of COPD, previous heavy tobacco dependence with recent cessation, obstructive sleep apnea without home CPAP use, type 2 diabetes, GERD POD#1 placement of right sided pigtail catheter by interventional radiology The patient was seen and examined this morning sitting up in a recliner in no acute distress. Denies pain, states breathing has gotten better. Only complaint is of lack of sleep. Remains in sinus rhythm and hemodynamically stable. Remains on room air with oxygen saturation in the mid 90s. Able to achieve 1750 on incentive spirometry. Right sided pigtail catheter placed yesterday by interventional radiology, patient had 1350 mL yellowish milky fluid drained before lytic instillation, has drained another 850 mL since lytics instilled. CXR reviewed this morning. No other new concerns. Objective - Vital Signs Vital signs: Vital Signs Temp 98.6 F 12/06/21 07:29 Pulse 94 12/06/21 07:29 Resp 19 12/06/21 07:29 BP 152/81 12/06/21 07:29 Pulse Ox 96 12/06/21 07:29 FiO2 Intake & Output 12/05/21 12/06/21 12/06/21 18:59 06:59 18:59 Intake Total 180 780 Output Total 1020 Balance 180 -240 Weight 121.6 kg Intake: Oral 180 780 Output: Chest Tube Drainage 270 Chest Tube Right Upper 270 Posterior Chest Urine 750 Other: Voiding Method Toilet Toilet Urinal Urinal # Voids 1 1 - Exam CONSTITUTIONAL: Appears comfortable, cooperative, no acute distress RESPIRATORY: Lungs sounds diminished on the right, better than yesterday. Respirations even, nonlabored. Currently on room air with oxygen saturation 95%. Able to achieve 1750 mL on incentive spirometry. Strong cough. Right sided pigtail present to continuous wall suction, 170 mL yellowish milky fluid drained overnight, 2200 mL drained since placement yesterday CARDIOVASCULAR: S1, S2 present. Regular rate and rhythm, sinus rhythm on telemetry. Palpable peripheral pulses bilaterally. No edema present. No calf pain or tenderness noted. GASTROINTESTINAL: Abdomen soft, nontender, nondistended. Active bowel sounds present 4 quadrants. Tolerating diet. GENITOURINARY: Continues to void clear, yellow urine INTEGUMENTARY: Skin is warm and dry with evidence of good perfusion. NEUROLOGIC: Cranial nerves II through XII intact MUSKULOSKELETAL: Able to move all extremities, strength equal bilaterally PSYCHIATRIC: Alert and oriented to person place and time, appropriate affect, intact judgment and insight - Allied health notes Allied health notes reviewed: nursing - Labs CBC & Chem 7: 12/05/21 11:06 12/05/21 11:06 Labs: Abnormal Lab Results - Last 24 Hours (Table) 12/05/21 12/05/21 12/05/21 Range/Units 11:06 11:06 11:06 MCHC 30.8 L (31.0-37.0) g/dL Plt Count 555 H (150-450) k/uL Sodium 132 L (137-145) mmol/L Chloride 93 L (98-107) mmol/L Creatinine 0.57 L (0.66-1.25) mg/dL Glucose 163 H (74-99) mg/dL POC Glucose (mg/dL) (70-110) mg/dL Hemoglobin A1c 11.4 H (0.0-6.0) % Calcium 8.3 L (8.4-10.2) mg/dL 12/05/21 12/05/21 12/05/21 Range/Units 12:57 16:39 20:15 MCHC (31.0-37.0) g/dL Plt Count (150-450) k/uL Sodium (137-145) mmol/L Chloride (98-107) mmol/L Creatinine (0.66-1.25) mg/dL Glucose (74-99) mg/dL POC Glucose (mg/dL) 146 H 262 H 207 H (70-110) mg/dL Hemoglobin A1c (0.0-6.0) % Calcium (8.4-10.2) mg/dL 12/06/21 Range/Units 06:03 MCHC (31.0-37.0) g/dL Plt Count (150-450) k/uL Sodium (137-145) mmol/L Chloride (98-107) mmol/L Creatinine (0.66-1.25) mg/dL Glucose (74-99) mg/dL POC Glucose (mg/dL) 160 H (70-110) mg/dL Hemoglobin A1c (0.0-6.0) % Calcium (8.4-10.2) mg/dL Microbiology - Last 24 Hours (Table) 12/04/21 15:30 Gram Stain - Preliminary Sputum Sputum Culture - Preliminary - Imaging and Cardiology Chest x-ray: image reviewed Assessment and Plan Assessment: 1. Loculated parapneumonic right-sided pleural effusion/possible empyema involving the right lung, status post placement of pigtail catheter by IR 2. Recent history of right lower lobe pneumonia 3. Shortness of breath, chest pain secondary to above 4. COPD 5. Previous heavy tobacco dependence with recent cessation 6. Obstructive sleep apnea without home CPAP use 7. Type 2 diabetes 8. GERD Plan: 1. Will instill lytic therapy again today, second dose 2. Continue pigtail to wall suction, may remove suction to ambulate in room/yuen llway 3. Will continue to monitor daily CXRs 4. Continue antibiotics per ID 5. Continue to encourage incentive spirometer 6. GI/DVT prophylaxis 7. Medical management of other comorbidities per primary care service 8. More recommendations to follow.
[2021-12-06] MEDS: ATORVASTATIN 40 MG TAB PO SCH (08:28)
[2021-12-06] MEDS: ENOXAPARIN 40 MG/0.4 ML SYRINGE SQ SCH (08:29)
[2021-12-06] MEDS: COLCHICINE 0.6 MG EACH PO SCH (08:29)
[2021-12-06] MEDS: FENOFIBRATE 160 MG TAB PO SCH (08:29)
[2021-12-06] MEDS: INSULIN DETEMIR (LEVEMIR) 100 UNIT/ML SYR SQ SCH (08:30)
[2021-12-06] MEDS: FUROSEMIDE 40 MG TAB PO SCH (08:30)
--- NOTE | 2021-12-06 08:39 | XR ---
EXAM: XR Chest, 1 View CLINICAL HISTORY: ITS.REASON XR Reason: loculated effusion TECHNIQUE: Frontal view of the chest. COMPARISON: No relevant prior studies available. FINDINGS: Lungs: Dense opacity in the right lower lung zone likely combination of airspace disease and effusion. Follow-up to exclude underlying lesions/abnormality. Pleural space: Unremarkable. No pneumothorax. Heart: Unremarkable. No cardiomegaly. Mediastinum: Unremarkable. Bones/joints: Unremarkable. IMPRESSION: Finding in the right lower lung zone, likely combination of airspace disease and effusion. Follow-up to clearing recommended to exclude underlying lesions/abnormality
[2021-12-06] MEDS ORDERED: DORNASE ALFA 5 MG in SODIUM CHLORIDE 0.9% 50 ML IRRIGATION ONE (09:00)
[2021-12-06] MEDS ORDERED: ALTEPLASE 10 MG in SODIUM CHLORIDE 0.9% 50 ML IRRIGATION ONE (09:00)
[2021-12-06 09:31] LABS: Basophils # (A) 0.1 k/uL (0-0.2); Basophils % (A) 0 %; Eosinophils # (A) 0.1 k/uL (0-0.7); Eosinophils % (A) 1 %; HCT 40.2 % (39.0-53.0); HGB 12.4 gm/dL (13.0-17.5); Lymphocytes # (A) 1.5 k/uL (1.0-4.8); Lymphocytes % (A) 14 %; MCH 27.3 pg (25.0-35.0); MCHC 30.8 g/dL (31.0-37.0); MCV 88.6 fL (80.0-100.0); Mean Platelet Volume 8.4; Monocytes # (A) 0.8 k/uL (0-1.0); Monocytes % (A) 7 %; Neutrophils # (A) 8.3 k/uL (1.3-7.7); Neutrophils % (A) 76 %; Platelet Count 589 k/uL (150-450); RBC 4.54 m/uL (4.30-5.90); RDW 12.6 % (11.5-15.5); WBC 10.9 k/uL (3.8-10.6)
--- NOTE | 2021-12-06 09:37 | P.PN ---
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 Patient was transferred from [facility] secondary to loculated right-sided pleural effusion. Patient has a history of pneumonia and was treated last month with antibiotics. Patient had a echocardiogram completed at [facility] which revealed normal LV function. Patient is sitting up in the chair this morning. He denies chest pain or pressure. Denies SOB. 12/06/2021 Patient examined this morning. He is sitting up in the chair. He denies chest p ain or pressure. Denies SOB. He is s/p pigtail catheter insertion with lytic instillation draining yellow purulent drainage. He complains of pain at catheter insertion site 11/08. PHYSICAL EXAM: VITAL SIGNS: Reviewed. GENERAL: Well-developed in no acute distress. NECK: Supple. No JVD or thyromegaly LUNGS: Respirations even and unlabored. Lungs diminished on the right side. HEART: Regular rate and rhythm. S1 and S2 heard. EXTREMITIES: Normal range of motion. No clubbing or cyanosis. Peripheral pulses intact. Trace lower extremity edema ASSESSMENT: Pericarditis Recent pneumonia/pneumonitis Loculated right-sided pleural effusion Isolated episode of atrial fibrillation, per cardiology documentation 12/04/2021 Diabetes COPD Former nicotine dependence PLAN: Continue current cardiac medications CT Surgery and pulmonary following. Plan to instill second dose of lytic therapy today. Further recommendations pending patient course Nurse practitioner note has been reviewed by physician. Signing provider agrees with the documented findings, assessment, and plan of care. Objective - Vital Signs Vital signs: Vital Signs Temp 98.6 F 12/06/21 07:29 Pulse 94 12/06/21 07:29 Resp 19 12/06/21 07:29 BP 152/81 12/06/21 07:29 Pulse Ox 96 12/06/21 07:29 FiO2 Intake & Output 12/05/21 12/06/21 12/06/21 18:59 06:59 18:59 Intake Total 180 780 180 Output Total 1020 400 Balance 180 -240 -220 Weight 121.6 kg Intake: Oral 180 780 180 Output: Chest Tube Drainage 270 Chest Tube Right Upper 270 Posterior Chest Urine 750 400 Other: Voiding Method Toilet Toilet Urinal Urinal # Voids 1 1 - Labs CBC & Chem 7: 12/06/21 08:05 12/05/21 11:06 Labs: Abnormal Lab Results - Last 24 Hours (Table) 12/05/21 12/05/21 12/05/21 Range/Units 11:06 11:06 11:06 WBC (3.8-10.6) k/uL Hgb (13.0-17.5) gm/dL MCHC 30.8 L (31.0-37.0) g/dL Plt Count 555 H (150-450) k/uL Neutrophils # (1.3-7.7) k/uL Sodium 132 L (137-145) mmol/L Chloride 93 L (98-107) mmol/L Creatinine 0.57 L (0.66-1.25) mg/dL Glucose 163 H (74-99) mg/dL POC Glucose (mg/dL) (70-110) mg/dL Hemoglobin A1c 11.4 H (0.0-6.0) % Calcium 8.3 L (8.4-10.2) mg/dL 12/05/21 12/05/21 12/05/21 Range/Units 12:57 16:39 20:15 WBC (3.8-10.6) k/uL Hgb (13.0-17.5) gm/dL MCHC (31.0-37.0) g/dL Plt Count (150-450) k/uL Neutrophils # (1.3-7.7) k/uL Sodium (137-145) mmol/L Chloride (98-107) mmol/L Creatinine (0.66-1.25) mg/dL Glucose (74-99) mg/dL POC Glucose (mg/dL) 146 H 262 H 207 H (70-110) mg/dL Hemoglobin A1c (0.0-6.0) % Calcium (8.4-10.2) mg/dL 12/06/21 12/06/21 Range/Units 06:03 08:05 WBC 10.9 H (3.8-10.6) k/uL Hgb 12.4 L (13.0-17.5) gm/dL MCHC 30.8 L (31.0-37.0) g/dL Plt Count 589 H (150-450) k/uL Neutrophils # 8.3 H (1.3-7.7) k/uL Sodium (137-145) mmol/L Chloride (98-107) mmol/L Creatinine (0.66-1.25) mg/dL Glucose (74-99) mg/dL POC Glucose (mg/dL) 160 H (70-110) mg/dL Hemoglobin A1c (0.0-6.0) % Calcium (8.4-10.2) mg/dL Microbiology - Last 24 Hours (Table) 12/04/21 15:30 Gram Stain - Preliminary Sputum Sputum Culture - Preliminary
[2021-12-06 09:46] LABS: African American GFR (CKD) >90 (>60 ml/min/1.73 sqM); Anion Gap 8 mmol/L; Blood Urea Nitrogen 13 mg/dL (9-20); Calcium 7.9 mg/dL (8.4-10.2); Carbon Dioxide 30 mmol/L (22-30); Chloride 94 mmol/L (98-107); Glucose 159 mg/dL (74-99); Non-African American GFR(CKD) >90 (>60 ml/min/1.73 sqM); Potassium 4.6 mmol/L (3.5-5.1); Sodium 132 mmol/L (137-145)
[2021-12-06] MEDS: MORPHINE SULFATE 4 MG/ML SYRINGE IVP PRN ×2 (10:51→23:29)
[2021-12-06 11:46] LABS: Glucose,Whole Blood 113 mg/dL (70-110)
--- NOTE | 2021-12-06 13:26 | P.PN ---
Subjective Progress Note Date: 12/06/21 Principal diagnosis: Right sided empyema Patient was seen today on 12/05/2021, patient had a right sided pigtail catheter placement by interventional radiology, and gross pus is being drained from the right sided empyema. Patient is already being seen by infectious disease, and h e will be seen by thoracic surgery for possible alteplase infusion in the right pleural space. Clinically the patient is feeling much better. Breathing a lot easier. Cultures are pending. WBC count today is 10.6 hemoglobin is 13.8 electrolytes are normal renal profile is normal Patient was reevaluated today on 12/06/2021, doing better, breathing easier, no fever no chills, patient is postoperative day #1, status post right sided pigtail catheter placement by interventional radiology, patient had about 1350 ML of purulent drainage from the right sided empyema patient had lytic instillation/alteplase instillations in his right pleural cavity and was able to drain 850 ML. Patient is clinically better, he is still on broad-spectrum antibiotics, cultures are negative so far. Patient is yet to be seen by infectious disease on consultation for potential long-term IV antibiotics treatment Objective - Vital Signs Vital signs: Vital Signs Temp 98.4 F 12/06/21 11:28 Pulse 97 12/06/21 11:28 Resp 20 12/06/21 11:28 BP 157/86 12/06/21 11:28 Pulse Ox 97 12/06/21 11:28 FiO2 Intake & Output 12/05/21 12/06/21 12/06/21 18:59 06:59 18:59 Intake Total 180 780 180 Output Total 1020 650 Balance 180 -240 -470 Weight 121.6 kg Intake: Oral 180 780 180 Output: Chest Tube Drainage 270 Chest Tube Right Upper 270 Posterior Chest Urine 750 650 Other: Voiding Method Toilet Toilet Toilet Urinal Urinal # Voids 1 1 - Exam Physical Exam: Revealed 50-year-old white male in no distress on room air. Head: Atraumatic, normocephalic. HEENT:[Neck is supple.] [No neck masses.] [No thyromegaly.] [No JVD.] Chest: [Diminished breath sounds and dullness at the right base, pigtail catheter connected to Pleur-evac is noted with gross pus draining into the pleural VAC. Cardiac Exam: [Normal S1 and S2, no S3 gallop, no murmur.] Abdomen: [Soft, nontender, no megaly, no rebound, no guarding, normal bowel sounds.] Extremities: [No clubbing, no edema, no cyanosis.] Neurological Exam: [No focal neurologic deficit.] Alert oriented 3 focal deficits. Psychiatric: Normal mood, affect and normal mental status examination. Skin: No rashes. - Labs CBC & Chem 7: 12/06/21 08:05 12/06/21 08:05 Labs: Abnormal Lab Results - Last 24 Hours (Table) 12/05/21 12/05/21 12/05/21 Range/Units 11:06 12:57 16:39 WBC (3.8-10.6) k/uL Hgb (13.0-17.5) gm/dL MCHC (31.0-37.0) g/dL Plt Count (150-450) k/uL Neutrophils # (1.3-7.7) k/uL Sodium (137-145) mmol/L Chloride (98-107) mmol/L Glucose (74-99) mg/dL POC Glucose (mg/dL) 146 H 262 H (70-110) mg/dL Hemoglobin A1c 11.4 H (0.0-6.0) % Calcium (8.4-10.2) mg/dL 12/05/21 12/06/21 12/06/21 Range/Units 20:15 06:03 08:05 WBC 10.9 H (3.8-10.6) k/uL Hgb 12.4 L (13.0-17.5) gm/dL MCHC 30.8 L (31.0-37.0) g/dL Plt Count 589 H (150-450) k/uL Neutrophils # 8.3 H (1.3-7.7) k/uL Sodium (137-145) mmol/L Chloride (98-107) mmol/L Glucose (74-99) mg/dL POC Glucose (mg/dL) 207 H 160 H (70-110) mg/dL Hemoglobin A1c (0.0-6.0) % Calcium (8.4-10.2) mg/dL 12/06/21 12/06/21 Range/Units 08:05 11:45 WBC (3.8-10.6) k/uL Hgb (13.0-17.5) gm/dL MCHC (31.0-37.0) g/dL Plt Count (150-450) k/uL Neutrophils # (1.3-7.7) k/uL Sodium 132 L (137-145) mmol/L Chloride 94 L (98-107) mmol/L Glucose 159 H (74-99) mg/dL POC Glucose (mg/dL) 113 H (70-110) mg/dL Hemoglobin A1c (0.0-6.0) % Calcium 7.9 L (8.4-10.2) mg/dL Microbiology - Last 24 Hours (Table) 12/04/21 15:30 Gram Stain - Preliminary Sputum Sputum Culture - Preliminary Alina albicans 12/05/21 12:25 Fungal Culture - Preliminary Pleural Fluid 12/05/21 12:25 Acid Fast Bacilli Culture - Preliminary Pleural Fluid 12/05/21 12:25 Anaerobic Culture - Preliminary Pleural Fluid 12/05/21 12:25 Body Fluid Culture - Preliminary Pleural Fluid Assessment and Plan Assessment: Impression: Acute right sided empyema, status post pigtail catheter placement by interventional radiology, postoperative day #1. Status post installation of alteplase to help drain loculated pleural effusion Recent right lower lobe pneumonia treated on outpatient basis Type 2 diabetes. COPD, maintained on Trelegy Ellipta on outpatient basis Obstructive sleep apnea syndrome not compliant with CPAP. Recommendation: Continue antibiotics cefepime/vancomycin and cultures are pending. Change antibiotics according to the final cultures ID to see on consultation. Continue bronchodilators. Continue incentive spirometry Resume home meds We will continue to follow Time with Patient: Less than 30
--- NOTE | 2021-12-06 15:10 | P.CONS ---
History of Present Illness - Reason for Consult Consult date: 12/04/21 - History of Present Illness Patient is a 50-year-old male who initially presented to [facility] on 12/03/2021 with the patient presented with the right-sided chest pain increasing shortness of breath and cough apparently the patient did have admission to the same hospital in July diagnosed with the patient was diagnosed with pneumonia and has been treated with antibiotic and steroids patient did yuen ve some improvement initially subsequent having increasing shortness of breath along with a cough which has been moderate intensity and is bringing up some purulent sputum no hemoptysis primary complaining of right-sided chest pain which is sharp almost 10 out of 10 in severity worse with taking a deep breath patient did have a CT of the chest completed at [facility] we did shows a loculated right-sided effusion patient be transferred to [facility] for CT surgery evaluation and pigtail catheter placement patient on presentation to the hospital was afebrile subsequently spiked a fever of 101.8 F, patient had white count 16.3 with a left shift kidney function has been normal IR consult is currently pending for drainage of this empyema Past Medical History Past Medical History: COPD, Diabetes Mellitus, GERD/Reflux, Sleep Apnea/CPAP/BIPAP Additional Past Medical History / Comment(s): does not wear a cpap History of Any Multi-Drug Resistant Organisms: None Reported Additional Past Surgical History / Comment(s): right wrist carparal tunnel Past Anesthesia/Blood Transfusion Reactions: No Reported Reaction Past Psychological History: No Psychological Hx Reported Smoking Status: Former smoker Past Alcohol Use History: None Reported Past Drug Use History: None Reported - Past Family History Father Family Medical History: Asthma, COPD Additional Family Medical History / Comment(s): smoker, pipe welder Mother Family Medical History: Cancer Additional Family Medical History / Comment(s): small cell lung, multiple stent, Medications and Allergies Home Medications Medication Instructions Recorded Confirmed Type Albuterol Inhaler [Ventolin Hfa 2 puff INHALATION RT-Q6H PRN 12/03/21 12/03/21 History Inhaler] Albuterol Nebulized [Ventolin 2.5 mg INHALATION RT-Q6H PRN 12/03/21 12/03/21 History Nebulized] Fenofibrate,Micronized 134 mg PO DAILY 12/03/21 12/03/21 History [Fenofibrate] Fluticasone/Umeclidin/Vilanter 2 puff INHALATION RT-DAILY 12/03/21 12/03/21 History [Trelegy Ellipta 100-62.5-25] Ibuprofen [Motrin] 600 mg PO Q8HR PRN 12/03/21 12/03/21 History Omeprazole 40 mg PO DAILY 12/03/21 12/03/21 History Pioglitazone [Actos] 30 mg PO DAILY 12/03/21 12/03/21 History sitaGLIPtin [Januvia] 100 mg PO DAILY 12/03/21 12/03/21 History Allergies Allergy/AdvReac Type Severity Reaction Status Date / Time insect venom Allergy Severe Anaphylaxis Verified 12/03/21 18:44 Physical Exam Vitals: Vital Signs Temp Pulse Resp BP Pulse Ox 12/04/21 08:00 98.1 F 67 18 135/63 94 L 12/04/21 04:00 98.3 F 103 H 24 135/79 94 L 12/03/21 23:30 101.8 F H 105 H 28 H 151/73 98 12/03/21 19:30 98.8 F 26 H 163/75 98 12/03/21 17:52 98.7 F 112 H 27 H 153/74 98 Intake and Output 12/03/21 12/04/21 12/04/21 22:59 06:59 14:59 Intake Total 590 Balance 590 Intake: Intake, IV Titration 50 Amount Cefepime 2 gm In Sodium 50 Chloride 0.9% 100 ml @ 25 mls/hr IVPB Q8HR [facility] Rx# :[id number] Oral 540 Other: Weight 121.3 kg 119.2 kg Results CBC & Chem 7: 12/06/21 08:05 12/06/21 08:05 Labs: Abnormal Lab Results - Last 24 Hours (Table) 12/03/21 12/04/21 12/04/21 Range/Units 20:20 05:54 05:54 WBC 16.3 H (3.8-10.6) k/uL Plt Count 486 H (150-450) k/uL Neutrophils # 13.0 H (1.3-7.7) k/uL Monocytes # 1.3 H (0-1.0) k/uL ESR (0-15) mm/hr Sodium 131 L (137-145) mmol/L Chloride 96 L (98-107) mmol/L Creatinine 0.49 L (0.66-1.25) mg/dL Glucose 177 H (74-99) mg/dL POC Glucose (mg/dL) 163 H (70-110) mg/dL Calcium 8.2 L (8.4-10.2) mg/dL Alkaline Phosphatase 169 H (38-126) U/L C-Reactive Protein 23.3 H (<1.0) mg/dL Albumin 2.8 L (3.5-5.0) g/dL 12/04/21 12/04/21 Range/Units 05:54 05:58 WBC (3.8-10.6) k/uL Plt Count (150-450) k/uL Neutrophils # (1.3-7.7) k/uL Monocytes # (0-1.0) k/uL ESR 85 H (0-15) mm/hr Sodium (137-145) mmol/L Chloride (98-107) mmol/L Creatinine (0.66-1.25) mg/dL Glucose (74-99) mg/dL POC Glucose (mg/dL) 176 H (70-110) mg/dL Calcium (8.4-10.2) mg/dL Alkaline Phosphatase (38-126) U/L C-Reactive Protein (<1.0) mg/dL Albumin (3.5-5.0) g/dL Assessment and Plan Plan: 1patient present to hospital with sepsis in this patient who did have a fever elevated white count source is right-sided empyema and will need to cover for both community-acquired as well as nosocomial pathogens. 2patient to continue the vancomycin pharmacy to dose and cefepime 2 g every 8 hours. 3await chest tube placement and the fluid should be sent for gram stain and culture 4discharge antibiotics on the basis of clinical response and cultures We will follow on clinical condition and cultures to further adjust medication if needed Thank you for this consultation will follow this patient along with you Time with Patient: Greater than 30
--- NOTE | 2021-12-06 15:12 | P.PN ---
Subjective Progress Note Date: 12/05/21 Principal diagnosis: Empyema Patient is a 50-year male presented to hospital with right-sided chest pain did have a cough and purulent sputum patient be diagnosed with right-sided empyema in this patient who is status post chest tube placement completed this morning. On today's evaluation that is 12/05/2021, patient denies having any fever or any chills, patient complaining of less pain to the right side of the chest, still complaining of shortness of breath and cough and bringing up some sputum no nausea vomiting no abdominal pain no diarrhea Objective - Vital Signs Vital signs: Vital Signs Temp 97.3 F L 12/05/21 11:25 Pulse 87 12/05/21 20:25 Resp 20 12/05/21 12:18 BP 158/77 12/05/21 12:18 Pulse Ox 97 12/05/21 12:18 FiO2 Intake & Output 12/05/21 12/05/21 12/06/21 06:59 18:59 06:59 Intake Total 1040 180 Output Total 450 Balance 590 180 Weight 120.6 kg Intake: Intake, IV Titration 500 Amount Vancomycin 1,750 mg In 500 Sodium Chloride 0.9% 500 ml 500 ml @ 167 mls/hr IVPB Q8H [facility] Rx#: [id number] Oral 540 180 Output: Urine 450 Other: Voiding Method Toilet Urinal # Voids 1 - Exam GENERAL DESCRIPTION: Middle-aged male lying in bed, no distress. No tachypnea or accessory muscle of respiration use. LUNGS: Unlabored breathing. Decreased breath sound the base, chest tube with a purulent drainage HEART: S1, S2, regular rate and rhythm. No loud murmur ABDOMEN: Soft, no tenderness , guarding or rigidity, no organomegaly EXTREMITIES: No edema of feet. - Labs CBC & Chem 7: 12/06/21 08:05 12/06/21 08:05 Labs: Abnormal Lab Results - Last 24 Hours (Table) 12/04/21 12/05/21 12/05/21 Range/Units 22:12 11:06 11:06 MCHC 30.8 L (31.0-37.0) g/dL Plt Count 555 H (150-450) k/uL Sodium (137-145) mmol/L Chloride (98-107) mmol/L Creatinine (0.66-1.25) mg/dL Glucose (74-99) mg/dL POC Glucose (mg/dL) 143 H (70-110) mg/dL Hemoglobin A1c 11.4 H (0.0-6.0) % Calcium (8.4-10.2) mg/dL 12/05/21 12/05/21 12/05/21 Range/Units 11:06 12:57 16:39 MCHC (31.0-37.0) g/dL Plt Count (150-450) k/uL Sodium 132 L (137-145) mmol/L Chloride 93 L (98-107) mmol/L Creatinine 0.57 L (0.66-1.25) mg/dL Glucose 163 H (74-99) mg/dL POC Glucose (mg/dL) 146 H 262 H (70-110) mg/dL Hemoglobin A1c (0.0-6.0) % Calcium 8.3 L (8.4-10.2) mg/dL 12/05/21 Range/Units 20:15 MCHC (31.0-37.0) g/dL Plt Count (150-450) k/uL Sodium (137-145) mmol/L Chloride (98-107) mmol/L Creatinine (0.66-1.25) mg/dL Glucose (74-99) mg/dL POC Glucose (mg/dL) 207 H (70-110) mg/dL Hemoglobin A1c (0.0-6.0) % Calcium (8.4-10.2) mg/dL Microbiology - Last 24 Hours (Table) 12/04/21 15:30 Gram Stain - Preliminary Sputum Sputum Culture - Preliminary Assessment and Plan (1) Pleural empyema Current Visit: Yes Status: Acute Code(s): J86.9 - PYOTHORAX WITHOUT FISTULA SNOMED Code(s): 36752610 Plan: 1patient present to hospital with sepsis secondary to right-sided empyema in this patient who is status post chest tube placement on 12/05/2021 with the cultures currently pending. 2patient to continue with the vancomycin and cefepime while waiting for the culture to finalize and monitor clinical course closely Time with Patient: Less than 30
--- NOTE | 2021-12-06 15:14 | P.PN ---
Subjective Progress Note Date: 12/06/21 Principal diagnosis: Empyema Patient is a 50-year male presented to hospital with right-sided chest pain did have a cough and purulent sputum patient be diagnosed with right-sided empyema in this patient who is status post chest tube placement completed this morning. On today's evaluation that is 12/06/2021, The patient remains to be afebrile, the patient is breathing comfortably, still complaining of pain to the right side of the chest however decreased intensity denies any worsening cough or sputum production abdominal pain and no diarrhea Objective - Vital Signs Vital signs: Vital Signs Temp 98.4 F 12/06/21 11:28 Pulse 97 12/06/21 11:28 Resp 20 12/06/21 11:28 BP 157/86 12/06/21 11:28 Pulse Ox 97 12/06/21 11:28 FiO2 Intake & Output 12/05/21 12/06/21 12/06/21 18:59 06:59 18:59 Intake Total 180 780 180 Output Total 1020 650 Balance 180 -240 -470 Weight 121.6 kg Intake: Oral 180 780 180 Output: Chest Tube Drainage 270 Chest Tube Right Upper 270 Posterior Chest Urine 750 650 Other: Voiding Method Toilet Toilet Toilet Urinal Urinal # Voids 1 1 - Exam GENERAL DESCRIPTION: Middle-aged male lying in bed, no distress. No tachypnea or accessory muscle of respiration use. LUNGS: Unlabored breathing. Decreased breath sound the base, chest tube with a purulent drainage HEART: S1, S2, regular rate and rhythm. No loud murmur ABDOMEN: Soft, no tenderness , guarding or rigidity, no organomegaly EXTREMITIES: No edema of feet. - Labs CBC & Chem 7: 12/06/21 08:05 12/06/21 08:05 Labs: Abnormal Lab Results - Last 24 Hours (Table) 12/05/21 12/05/21 12/05/21 Range/Units 11:06 12:57 16:39 WBC (3.8-10.6) k/uL Hgb (13.0-17.5) gm/dL MCHC (31.0-37.0) g/dL Plt Count (150-450) k/uL Neutrophils # (1.3-7.7) k/uL Sodium (137-145) mmol/L Chloride (98-107) mmol/L Glucose (74-99) mg/dL POC Glucose (mg/dL) 146 H 262 H (70-110) mg/dL Hemoglobin A1c 11.4 H (0.0-6.0) % Calcium (8.4-10.2) mg/dL 12/05/21 12/06/21 12/06/21 Range/Units 20:15 06:03 08:05 WBC 10.9 H (3.8-10.6) k/uL Hgb 12.4 L (13.0-17.5) gm/dL MCHC 30.8 L (31.0-37.0) g/dL Plt Count 589 H (150-450) k/uL Neutrophils # 8.3 H (1.3-7.7) k/uL Sodium (137-145) mmol/L Chloride (98-107) mmol/L Glucose (74-99) mg/dL POC Glucose (mg/dL) 207 H 160 H (70-110) mg/dL Hemoglobin A1c (0.0-6.0) % Calcium (8.4-10.2) mg/dL 12/06/21 12/06/21 Range/Units 08:05 11:45 WBC (3.8-10.6) k/uL Hgb (13.0-17.5) gm/dL MCHC (31.0-37.0) g/dL Plt Count (150-450) k/uL Neutrophils # (1.3-7.7) k/uL Sodium 132 L (137-145) mmol/L Chloride 94 L (98-107) mmol/L Glucose 159 H (74-99) mg/dL POC Glucose (mg/dL) 113 H (70-110) mg/dL Hemoglobin A1c (0.0-6.0) % Calcium 7.9 L (8.4-10.2) mg/dL Microbiology - Last 24 Hours (Table) 12/04/21 15:30 Gram Stain - Preliminary Sputum Sputum Culture - Preliminary Alina albicans 12/05/21 12:25 Fungal Culture - Preliminary Pleural Fluid 12/05/21 12:25 Acid Fast Bacilli Culture - Preliminary Pleural Fluid 12/05/21 12:25 Anaerobic Culture - Preliminary Pleural Fluid 12/05/21 12:25 Body Fluid Culture - Preliminary Pleural Fluid Assessment and Plan (1) Pleural empyema Current Visit: Yes Status: Acute Code(s): J86.9 - PYOTHORAX WITHOUT FISTULA SNOMED Code(s): 51120573 Plan: 1patient present to hospital with sepsis secondary to right-sided empyema in this patient who is status post chest tube placement on 12/05/2021 with the cultures currently pending. 2Patient seem to have shown some clinical improvement pleural fluid cultures are currently pending patient will continue with the vancomycin and cefepime while waiting for culture to finalize to determine his discharge antibiotics patient will likely need a PICC line and outpatient IV antibiotic on discharge Time with Patient: Less than 30
[2021-12-06 16:20] LABS: Glucose,Whole Blood 166 mg/dL (70-110)
[2021-12-06 16:47] VITALS: BMI 35.4
--- NOTE | 2021-12-06 17:01 | P.PN ---
Subjective Progress Note Date: 12/06/21 This is a 50-year-old male who was recently admitted at [facility] although sent here for further evaluation from cardiothoracic surgery for pericarditis and is being closely monitored. Multiple medical consultations placed including infectious disease, cardiology, pulmonary and cardiothoracic surgery. Patient was found to have flulike symptoms and right side when pain and found to have loculated pleural effusions on the right from CT with a peripneumonic effusion. Patient was placed on IV antibiotics with infectious disease consultation. Patient started having worsening chest pain and shortness of breath and went back to the hospital and sent over to [facility] for further evaluation. Initially patient's white count was elevated and sodium was slightly low and patient's oxygen saturations were above 90% on room air. Patient does have a past medical history of COPD, diabetes, GERD, sleep apnea but does not wear a CPAP, former smoker. Patient follows with Dr. Wellington in the outpatient setting. Sputum culture was obtained and pending. 12/05/2021 Patient is seen and evaluated this morning and follow-up and has been evaluated by cardiothoracic surgery recommending interventional radiology consultation for possible pigtail placement. Patient is also being followed closely by infectious disease and maintained on IV antibiotics and will continue. Awaiting pigtail catheter placement for right side empyema. Continue with pain management. Patient is afebrile and denies chest pain. Encouraged incentive spirometer use at least 10 times per hour while awake. Recommend repeat labs and possible chest xray in the am. 12/06/2021 Patient is evaluated today with multiple medical consultations following. Patient is postop chest tube placement of the right for loculated right empyema with continued purulent drainage noted. Patient is continued on IV antibiotics with ID following closely and patient will likely require a PICC line for outpatient antibiotics. Case management is following and working on verifying coverage. Awaiting finalized cultures to determine appropriate discharge antibiotics. Patient continues with chest wall pain and does have as needed medications and will also add oral medications to the regimen. Patient with some difficulty in sleeping and will add Restoril as needed. Encouraged continued incentive spirometer least 10 times every hour while awake. CT surgery following continuing on thrombolytics to ensure patency of the drainage tube. Recommend follow-up chest x-ray daily. Labs reviewed and WBC is trending down and will continue to monitor closely. Patient is afebrile and denies shortness of breath. Currently maintaining saturations above 95% on room air. Patient denies nausea or vomiting and is tolerating diet. Encouraged increased activity as tolerated. Review of systems: Constitutional: No reports of fatigue, fever, or chills, reports difficulty in sleeping Cardiovascular: No reports of chest pain or palpitations, reports chest wall pain Respiratory: No reports of worsening shortness of breath or cough GI: No reports of nausea, vomiting, or diarrhea : No reports of dysuria or retention Neurovascular: No reports of weakness or numbness All medications have been reviewed Active Medications Acetaminophen (Acetaminophen Tab 325 Mg Tab) 650 mg PO Q4HR PRN PRN Reason: Fever and/or Mild Pain Last Admin: 12/03/21 23:36 Dose: 650 mg Albuterol Sulfate (Albuterol Hfa Inhaler) 2 puff INHALATION RT-Q6H PRN PRN Reason: Shortness Of Breath Albuterol Sulfate (Albuterol Nebulized 2.5 Mg/3 Ml) 2.5 mg INHALATION RT-Q6H PRN PRN Reason: Shortness Of Breath Last Admin: 12/04/21 20:21 Dose: 2.5 mg Atorvastatin Calcium (Atorvastatin 40 Mg Tab) 40 mg PO DAILY [facility] Last Admin: 12/05/21 08:27 Dose: 40 mg Budesonide/Formoterol Fumarate (Symbicort 80-4.5 Mcg Inhaler) 2 puff INHALATION RT-BID [facility] Last Admin: 12/05/21 07:43 Dose: 2 puff Colchicine (Colchicine 0.6 Mg Each) 0.6 mg PO DAILY [facility] Last Admin: 12/05/21 08:28 Dose: 0.6 mg Dextrose/Water (Dextrose 50% Syringe 50 Ml) 25 ml IVP PER PROTOCOL PRN; Protocol PRN Reason: Hypoglycemia Dextrose/Water (Dextrose 50% Syringe 50 Ml) 50 ml IVP PER PROTOCOL PRN; Protocol PRN Reason: Hypoglycemia Enoxaparin Sodium (Enoxaparin 40 Mg/0.4 Ml Syringe) 40 mg SQ DAILY [facility] Last Admin: 12/04/21 08:28 Dose: 40 mg Fenofibrate (Fenofibrate 160 Mg Tab) 160 mg PO DAILY [facility] Last Admin: 12/05/21 08:27 Dose: 160 mg Furosemide (Furosemide 40 Mg Tab) 40 mg PO DAILY [facility] Hydromorphone HCl (Hydromorphone 1 Mg/Ml 1 Ml Syringe) 1 mg IVP Q2HR PRN PRN Reason: Pain Last Admin: 12/05/21 11:17 Dose: 1 mg Cefepime HCl 2 gm/ Sodium (Chloride) 100 mls @ 25 mls/hr IVPB Q8HR [facility]; Protocol Last Admin: 12/05/21 10:20 Dose: 25 mls/hr Vancomycin HCl 1,750 mg/ (Sodium Chloride) 500 mls @ 167 mls/hr IVPB Q8H [facility] Last Admin: 12/05/21 05:09 Dose: 167 mls/hr Insulin Aspart (Insulin Aspart (Novolog) 100 Unit/Ml Vial) 0 unit SQ ACHS [facility]; Protocol Last Admin: 12/05/21 06:08 Dose: Not Given Insulin Detemir (Insulin Detemir (Levemir) 100 Unit/Ml Syr) 40 unit SQ DAILY@0900 [facility] Last Admin: 12/05/21 10:20 Dose: 40 unit Ipratropium Reading (Ipratropium 0.5 Mg/2.5 Ml Nebu) 0.5 mg INHALATION RT-QID [facility] Last Admin: 12/05/21 11:20 Dose: Not Given Ketorolac Tromethamine (Ketorolac 15 Mg/Ml 1 Ml Vial) 15 mg IVP Q6HR [facility] Stop: 12/06/21 22:53 Last Admin: 12/05/21 05:09 Dose: 15 mg Lorazepam (Lorazepam 1 Mg Tab) 1 mg PO Q6HR PRN PRN Reason: Anxiety Morphine Sulfate (Morphine Sulfate 4 Mg/Ml Syringe) 4 mg IVP Q2HR PRN PRN Reason: Pain Last Admin: 12/04/21 15:21 Dose: 4 mg Nitroglycerin (Nitroglycerin Sl Tabs 0.4 Mg Tab) 0.4 mg SUBLINGUAL Q5M PRN PRN Reason: Chest Pain Ondansetron HCl (Ondansetron 4 Mg/2 Ml Vial) 4 mg IVP Q4HR PRN PRN Reason: Nausea And Vomiting Pantoprazole Sodium (Pantoprazole 40 Mg Tablet) 40 mg PO AC-BRKFST [facility] Last Admin: 12/05/21 06:50 Dose: 40 mg PHYSICAL EXAMINATION: GENERAL: The patient is alert and oriented x3, not in any acute distress. Well developed, well nourished. HEENT: Pupils are round and equally reacting to light. EOMI. No scleral icterus. No conjunctival pallor. Normocephalic, atraumatic. No pharyngeal erythema. No thyromegaly. CARDIOVASCULAR: S1 and S2 present. No murmurs, rubs, or gallops. PULMONARY: Bilateral diminished breath sounds with some scattered rhonchi noted. Right chest tube noted with purulent drainage ABDOMEN: Soft, nontender, nondistended, normoactive bowel sounds. No palpable organomegaly. MUSCULOSKELETAL: No joint swelling or deformity. EXTREMITIES: No cyanosis, clubbing, or pedal edema. NEUROLOGICAL: Gross neurological examination did not reveal any focal deficits. SKIN: No rashes. Assessment: Right side chest pain with loculated pleural effusion Empyema of the right lung status post chest tube placement Peripneumonic effusion secondary to pleural effusion with possible empyema of the right lung Recent right lower lobe pneumonia, was on antibiotics and steroids outpatient Shortness of breath secondary to above Diabetes mellitus type 2 COPD, not in exacerbation History of obstructive sleep apnea although does not wear a CPAP Gastroesophageal reflux disease Former smoker GI prophylaxis DVT prophylaxis: on eliquis Full code Plan: Recommend IV antibiotics with infectious disease following, patient may require IV antibiotics with a PICC line outpatient and will consult case management to verify coverage Cardiothoracic surgery following and administering thrombolytics to ensure patency of the chest tube, post IR chest tube catheter placement on 12/05/2021 Pulmonary and cardiology following Recommend resuming home meds and continuing with breathing inhalational tr eatments Patient is being started on IV Lasix along with colchicine per cardiology Recommend repeat labs and follow-up chest x-ray Recommend Accu-Cheks before meals and at bedtime along with sliding scale and long-acting insulin Will add Sleep-Aid and oral pain medications along with continued IV pain medications as needed Prognosis is guarded. The impression and plan of care has been dictated by Roya Chandra, Nurse Practitioner as directed. MD Lima I have performed a history and examination and MDM of this patient, discussed the same with the dictator, and agree with the dictator's assessment and plan as written ,documented as a scribe. Based on total visit time, I have performed more than 50% of the visit. Objective - Vital Signs Vital signs: Vital Signs Temp 98.6 F 12/06/21 07:29 Pulse 94 12/06/21 10:07 Resp 19 12/06/21 07:29 BP 152/81 12/06/21 07:29 Pulse Ox 96 12/06/21 07:29 FiO2 Intake & Output 12/05/21 12/06/21 12/06/21 18:59 06:59 18:59 Intake Total 180 780 180 Output Total 1020 400 Balance 180 -240 -220 Weight 121.6 kg Intake: Oral 180 780 180 Output: Chest Tube Drainage 270 Chest Tube Right Upper 270 Posterior Chest Urine 750 400 Other: Voiding Method Toilet Toilet Toilet Urinal Urinal # Voids 1 1 - Labs CBC & Chem 7: 12/06/21 08:05 12/06/21 08:05 Labs: Abnormal Lab Results - Last 24 Hours (Table) 12/05/21 12/05/21 12/05/21 Range/Units 11:06 11:06 11:06 WBC (3.8-10.6) k/uL Hgb (13.0-17.5) gm/dL MCHC 30.8 L (31.0-37.0) g/dL Plt Count 555 H (150-450) k/uL Neutrophils # (1.3-7.7) k/uL Sodium 132 L (137-145) mmol/L Chloride 93 L (98-107) mmol/L Creatinine 0.57 L (0.66-1.25) mg/dL Glucose 163 H (74-99) mg/dL POC Glucose (mg/dL) (70-110) mg/dL Hemoglobin A1c 11.4 H (0.0-6.0) % Calcium 8.3 L (8.4-10.2) mg/dL 12/05/21 12/05/21 12/05/21 Range/Units 12:57 16:39 20:15 WBC (3.8-10.6) k/uL Hgb (13.0-17.5) gm/dL MCHC (31.0-37.0) g/dL Plt Count (150-450) k/uL Neutrophils # (1.3-7.7) k/uL Sodium (137-145) mmol/L Chloride (98-107) mmol/L Creatinine (0.66-1.25) mg/dL Glucose (74-99) mg/dL POC Glucose (mg/dL) 146 H 262 H 207 H (70-110) mg/dL Hemoglobin A1c (0.0-6.0) % Calcium (8.4-10.2) mg/dL 12/06/21 12/06/21 12/06/21 Range/Units 06:03 08:05 08:05 WBC 10.9 H (3.8-10.6) k/uL Hgb 12.4 L (13.0-17.5) gm/dL MCHC 30.8 L (31.0-37.0) g/dL Plt Count 589 H (150-450) k/uL Neutrophils # 8.3 H (1.3-7.7) k/uL Sodium 132 L (137-145) mmol/L Chloride 94 L (98-107) mmol/L Creatinine (0.66-1.25) mg/dL Glucose 159 H (74-99) mg/dL POC Glucose (mg/dL) 160 H (70-110) mg/dL Hemoglobin A1c (0.0-6.0) % Calcium 7.9 L (8.4-10.2) mg/dL Microbiology - Last 24 Hours (Table) 12/05/21 12:25 Anaerobic Culture - Preliminary Pleural Fluid 12/05/21 12:25 Body Fluid Culture - Preliminary Pleural Fluid 12/04/21 15:30 Gram Stain - Preliminary Sputum Sputum Culture - Preliminary
[2021-12-06 20:21] LABS: Glucose,Whole Blood 131 mg/dL (70-110)
[2021-12-06 21:51] LABS: Glucose, BF Source Pleural Fluid; Glucose, Body Fluid 325 mg/dL; T. Protein, Body Fluid Source Pleural Fluid; Total Protein, Body Fluid 1300 mg/dL
[2021-12-06 22:30] LABS: Amylase, Fluid Source Pleural Fluid; Amylase,Body Fluid <3 U/L; LDH, Body Fluid Source Pleural Fluid
[2021-12-06] MEDS: TEMAZEPAM 15 MG CAP PO PRN (23:29)
[2021-12-07] MEDS: ONDANSETRON 4 MG/2 ML VIAL IVP PRN (03:50)
[2021-12-07] MEDS: HYDROmorphone 1 MG/ML 1 ML SYRINGE IVP PRN ×3 (03:50→14:43)
[2021-12-07] MEDS: VANCOMYCIN 1,750 MG in SODIUM CHLORIDE 0.9% 500 ML 500 ML IVPB SCH ×2 (03:51→15:55)
[2021-12-07 06:05] LABS: Glucose,Whole Blood 118 mg/dL (70-110)
[2021-12-07] MEDS: INSULIN ASPART (NovoLOG) 100 UNIT/ML VIAL SQ SCH ×4 (06:18→20:19)
[2021-12-07] MEDS: PANTOPRAZOLE 40 MG TABLET PO SCH (06:30)
[2021-12-07] MEDS ORDERED: traMADol 50 MG TAB PO PRN (07:11)
--- NOTE | 2021-12-07 07:48 | P.PN ---
Subjective Progress Note Date: 12/07/21 Principal diagnosis: Loculated parapneumonic right-sided pleural effusion/possible empyema involving the right lung. Recent history of right lower lobe pneumonia, history of COPD, previous heavy tobacco dependence with recent cessation, obstructive sleep apnea without home CPAP use, type 2 diabetes, GERD POD#2 placement of right sided pigtail catheter by interventional radiology The patient was seen and examined this morning sitting up in bed in no acute distress eating breakfast. Does complain of right-sided back pain not completely controlled with current IV narcotic medication, states breathing continues to get better. Remains in sinus rhythm and hemodynamically stable. Remains on room air with oxygen saturation in the mid 90s. Able to achieve 1750 on incentive spirometry. Right sided pigtail catheter remains, 850 mL drained in the last 24 hours, second dose lytics instilled yesterday. CXR reviewed this morning. No other new concerns. Objective - Vital Signs Vital signs: Vital Signs Temp 98.3 F 12/07/21 04:00 Pulse 82 12/07/21 04:00 Resp 18 12/07/21 04:00 BP 143/81 12/07/21 04:00 Pulse Ox 97 12/07/21 04:00 FiO2 Intake & Output 12/06/21 12/07/21 12/07/21 18:59 06:59 18:59 Intake Total 540 1080 Output Total 1950 1490 Balance -1410 -410 Weight 121.6 kg Intake: Oral 540 1080 Output: Chest Tube Drainage 1300 40 Chest Tube Right Upper 1300 40 Posterior Chest Urine 650 1450 Other: Voiding Method Toilet Toilet Urinal # Voids 2 3 - Exam CONSTITUTIONAL: Appears comfortable, cooperative, no acute distress RESPIRATORY: Lungs sounds diminished on the right. Respirations even, nonlabored. Currently on room air with oxygen saturation 97%. Able to achieve 1750 mL on incentive spirometry. Strong cough. Right sided pigtail present to continuous wall suction, 850 mL drained in the last 24 hours CARDIOVASCULAR: S1, S2 present. Regular rate and rhythm, sinus rhythm on telemetry. Palpable peripheral pulses bilaterally. No edema present. No calf pain or tenderness noted. GASTROINTESTINAL: Abdomen soft, nontender, nondistended. Active bowel sounds present 4 quadrants. Tolerating diet. GENITOURINARY: Continues to void clear, yellow urine INTEGUMENTARY: Skin is warm and dry with evidence of good perfusion. NEUROLOGIC: Cranial nerves II through XII intact MUSKULOSKELETAL: Able to move all extremities, strength equal bilaterally PSYCHIATRIC: Alert and oriented to person place and time, appropriate affect, intact judgment and insight - Allied health notes Allied health notes reviewed: nursing - Labs CBC & Chem 7: 12/06/21 08:05 12/06/21 08:05 Labs: Abnormal Lab Results - Last 24 Hours (Table) 12/06/21 12/06/21 12/06/21 Range/Units 08:05 08:05 11:45 WBC 10.9 H (3.8-10.6) k/uL Hgb 12.4 L (13.0-17.5) gm/dL MCHC 30.8 L (31.0-37.0) g/dL Plt Count 589 H (150-450) k/uL Neutrophils # 8.3 H (1.3-7.7) k/uL Sodium 132 L (137-145) mmol/L Chloride 94 L (98-107) mmol/L Glucose 159 H (74-99) mg/dL POC Glucose (mg/dL) 113 H (70-110) mg/dL Calcium 7.9 L (8.4-10.2) mg/dL 12/06/21 12/06/21 12/07/21 Range/Units 16:18 20:20 06:03 WBC (3.8-10.6) k/uL Hgb (13.0-17.5) gm/dL MCHC (31.0-37.0) g/dL Plt Count (150-450) k/uL Neutrophils # (1.3-7.7) k/uL Sodium (137-145) mmol/L Chloride (98-107) mmol/L Glucose (74-99) mg/dL POC Glucose (mg/dL) 166 H 131 H 118 H (70-110) mg/dL Calcium (8.4-10.2) mg/dL Microbiology - Last 24 Hours (Table) 12/05/21 12:25 Gram Stain - Preliminary Pleural Fluid Body Fluid Culture - Preliminary 12/04/21 15:30 Gram Stain - Preliminary Sputum Sputum Culture - Preliminary Alina albicans 12/05/21 12:25 Fungal Culture - Preliminary Pleural Fluid 12/05/21 12:25 Acid Fast Bacilli Culture - Preliminary Pleural Fluid 12/05/21 12:25 Anaerobic Culture - Preliminary Pleural Fluid - Imaging and Cardiology Chest x-ray: image reviewed Assessment and Plan Assessment: 1. Loculated parapneumonic right-sided pleural effusion/empyema involving the right lung, status post placement of pigtail catheter by IR 2. Recent history of right lower lobe pneumonia 3. Shortness of breath, chest pain secondary to above 4. COPD 5. Previous heavy tobacco dependence with recent cessation 6. Obstructive sleep apnea without home CPAP use 7. Type 2 diabetes 8. GERD Plan: 1. Will instill lytic therapy again today, third dose 2. Continue pigtail to wall suction, may remove suction to ambulate in room/hallway 3. Will continue to monitor daily CXRs 4. Continue antibiotics per ID 5. Continue to encourage incentive spirometer 6. GI/DVT prophylaxis 7. Medical management of other comorbidities per primary care service 8. More recommendations to follow.
--- NOTE | 2021-12-07 07:49 | XR ---
EXAM: XR Chest, 2 Views CLINICAL HISTORY: ITS.REASON XR Reason: right effusion TECHNIQUE: Frontal and lateral views of the chest. COMPARISON: XR Chest dated 12/06/2021 FINDINGS: Lungs: Atelectasis and airspace disease in the right mid to lower lung, mildly decreased. Pleural space: Similar or mildly decreased right pleural effusion. No pneumothorax. Heart: Unremarkable. No cardiomegaly. Mediastinum: Unremarkable. Bones/joints: Unremarkable. Tubes, lines and devices: Query small right pleural catheter. IMPRESSION: 1. Similar mildly decreased right pleural effusion. 2. Atelectasis and airspace disease in the right mid to lower lung, mildly decreased.
[2021-12-07] MEDS: IPRATROPIUM 0.5 MG/2.5 ML NEBU INHALATION SCH ×4 (07:54→20:38)
[2021-12-07] MEDS: SYMBICORT 80-4.5 MCG INHALER INHALATION SCH ×2 (07:54→20:38)
[2021-12-07] MEDS ORDERED: ALTEPLASE 10 MG in SODIUM CHLORIDE 0.9% 50 ML IRRIGATION ONE (08:25)
[2021-12-07] MEDS ORDERED: DORNASE ALFA 5 MG in SODIUM CHLORIDE 0.9% 50 ML IRRIGATION ONE (08:25)
[2021-12-07] MEDS: CEFEPIME 2 GM in SODIUM CHLORIDE 0.9% 100 ML IVPB SCH ×3 (09:00→23:11)
--- NOTE | 2021-12-07 10:02 | CDI ---
Documentation Clarification Form Date: 12/08/2021 09:50:47 AM From: Sylvie Jones CCS, CCDS Admit Date: 12/03/2021 05:49:00 PM Patient Name: Ayse Hatch Visit Number: [id number] Discharge Date: ATTENTION: The Clinical Documentation Specialists (CDI) and [facility] Coding Staff appreciate your assistance in clarifying documentation. Please respond to the clarification below the line at the bottom and electronically sign. The CDI & [facility] Coding staff will review the response and follow-up if needed. Please note: Queries are made part of the Legal Health Record. If you have any questions, please contact the author of this message via ITS. Dr. Linette Morgan: The patient presented to [facility] with worsening shortness of breath and chest pain, transferred to [facility] and diagnosed with a loculated right side pleural effusion with multiple pockets & right basilar atelectasis/consolidation. Based on this information and the findings below, is there an additional diagnosis that is clinically appropriate for this patient? History/Risk Factors per the 12/04 H/P: COPD, DM, GERD, Sleep Apnea, Former smoker. Clinical Indicators: Recently admitted to [facility], transferred to [facility] on 12/03 for Cardiothoracic Surgery evaluation for Pericarditis. Had flulike symptoms and right side chest pain, WBC elevated, Na low, PO above 90% on RA. Admit with Right side chest pain with loculated pleural effusion. Peripneumonic effusion secondary to pleural effusion with possible empyema of the right lung. Recent right lower lobe pneumonia, was on antibiotics & steroids as outpatient. COPD not in exacerbation. CALVIN, does not wear a CPAP. 12/03 VS: T 98.7, P 112, R 27 (sob, cough, shallow, tachypnea), BP 153/74, PO 98 3Lnc, BMI: 35.4 12/03 LAB: WBC 16.3, Plt Ct 486, Neutrophils 13.0, [place] 1.3, ESR 85; Na 131, Chloride 96, Glucose 177, Calcium 8.2, Alk Phos 169, CRP 23.3, Albumin 2.8 No CXR on admission. Treatment 12/03: Telemetry, O2 3Lnc, IV Vancomycin 500 mls @ 167 mls/hr x1, IV Dilaudid 1 mg q2H, IV Morphine 4 mg q2H/prn, Nitro sl, IV Zofran 4 mg q4H/prn, IH Ventolin 2.5 mg QID/PRN. Is there an additional diagnosis that is clinically appropriate for this patient? [ x] Acute Hypoxic Respiratory Failure [ ] Acute on Chronic Hypoxic Respiratory Failure [ ] Chronic Hypoxic Respiratory Failure [ x ] Acute Respiratory Insufficiency [ ] Other Diagnosis, please specify: [ ] Unable to determine (Template Last Revised: May 2020) MTDD
[2021-12-07] MEDS: INSULIN DETEMIR (LEVEMIR) 100 UNIT/ML SYR SQ SCH (10:18)
[2021-12-07] MEDS: FENOFIBRATE 160 MG TAB PO SCH (10:19)
[2021-12-07] MEDS: ENOXAPARIN 40 MG/0.4 ML SYRINGE SQ SCH (10:19)
[2021-12-07] MEDS: FUROSEMIDE 40 MG TAB PO SCH (10:19)
[2021-12-07] MEDS: COLCHICINE 0.6 MG EACH PO SCH (10:19)
[2021-12-07] MEDS: ATORVASTATIN 40 MG TAB PO SCH (10:19)
--- NOTE | 2021-12-07 10:42 | P.PN ---
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 Patient was transferred from [facility] secondary to loculated right-sided pleural effusion. Patient has a history of pneumonia and was treated last month with antibiotics. Patient had a echocardiogram completed at [facility] which revealed normal LV function. Patient is sitting up in the chair this morning. He denies chest pain or pressure. Denies SOB. 12/06/2021 Patient examined this morning. He is sitting up in the chair. He denies chest p ain or pressure. Denies SOB. He is s/p pigtail catheter insertion with lytic instillation draining yellow purulent drainage. He complains of pain at catheter insertion site 11/08. 12/07/2021 Patient examined this morning at the bedside. Patient denies chest pain or pressure. Denies SOB. Reports pain at pigtail catheter site. Telemetry reveals sinus mechanism. PHYSICAL EXAM: VITAL SIGNS: Reviewed. GENERAL: Well-developed in no acute distress. NECK: Supple. No JVD or thyromegaly LUNGS: Respirations even and unlabored. Lungs diminished on the right side. HEART: Regular rate and rhythm. S1 and S2 heard. EXTREMITIES: Normal range of motion. No clubbing or cyanosis. Peripheral pulses intact. Trace lower extremity edema ASSESSMENT: Pericarditis Recent pneumonia/pneumonitis Loculated right-sided pleural effusion Isolated episode of atrial fibrillation, per cardiology documentation 12/04/2021 Diabetes COPD Former nicotine dependence PLAN: Continue current cardiac medications CT Surgery and pulmonary following. Plan to instill third dose of lytic therapy today. Further recommendations pending patient course Nurse practitioner note has been reviewed by physician. Signing provider agrees with the documented findings, assessment, and plan of care. Objective - Vital Signs Vital signs: Vital Signs Temp 98.3 F 12/07/21 04:00 Pulse 92 12/07/21 08:04 Resp 18 12/07/21 04:00 BP 143/81 12/07/21 04:00 Pulse Ox 97 12/07/21 04:00 FiO2 Intake & Output 12/06/21 12/07/21 12/07/21 18:59 06:59 18:59 Intake Total 540 1080 Output Total 1950 1490 Balance -1410 -410 Weight 121.6 kg Intake: Oral 540 1080 Output: Chest Tube Drainage 1300 40 Chest Tube Right Upper 1300 40 Posterior Chest Urine 650 1450 Other: Voiding Method Toilet Toilet Urinal # Voids 2 3 - Labs CBC & Chem 7: 12/06/21 08:05 12/06/21 08:05 Labs: Abnormal Lab Results - Last 24 Hours (Table) 12/06/21 12/06/21 12/06/21 Range/Units 11:45 16:18 20:20 POC Glucose (mg/dL) 113 H 166 H 131 H (70-110) mg/dL 12/07/21 Range/Units 06:03 POC Glucose (mg/dL) 118 H (70-110) mg/dL Microbiology - Last 24 Hours (Table) 12/04/21 15:30 Gram Stain - Final Sputum Sputum Culture - Final Alina albicans 12/05/21 12:25 Gram Stain - Preliminary Pleural Fluid Body Fluid Culture - Preliminary 12/05/21 12:25 Fungal Culture - Preliminary Pleural Fluid 12/05/21 12:25 Acid Fast Bacilli Culture - Preliminary Pleural Fluid 12/05/21 12:25 Anaerobic Culture - Preliminary Pleural Fluid
[2021-12-07] MEDS: HYDROcodone/APAP 5-325MG 1 EACH TAB PO PRN ×2 (10:47→17:04)
[2021-12-07] MEDS ORDERED: VANCOMYCIN TROUGH DUE 1 EACH MISC MISCELLANE ONE (11:00)
[2021-12-07 11:04] LABS: African American GFR (CKD) >90 (>60 ml/min/1.73 sqM); Anion Gap 8 mmol/L; Blood Urea Nitrogen 11 mg/dL (9-20); Calcium 8.4 mg/dL (8.4-10.2); Carbon Dioxide 30 mmol/L (22-30); Chloride 95 mmol/L (98-107); Glucose 216 mg/dL (74-99); Non-African American GFR(CKD) >90 (>60 ml/min/1.73 sqM); Potassium 5.3 mmol/L (3.5-5.1); Sodium 133 mmol/L (137-145)
[2021-12-07 12:01] LABS: Glucose,Whole Blood 218 mg/dL (70-110)
--- NOTE | 2021-12-07 14:02 | P.PN ---
Subjective Progress Note Date: 12/07/21 51-year-old male patient was seen in consultation at [facility] on 12/03/2021. I initiated the transfer to our hospital as the patient has a complicated loculated right-sided pleural effusion/empyema and the patient needed further expertise interventional radiology and thoracic surgery. The patient's history dates back to mid October when he came into [facility] with a right lung pneumonia. The patient was given antibiotics and steroids and went home. He continued to be symptomatic. He saw his primary care physician in one antibiotics were given. Subsequently, he started chest pain improved and the patient started having progressive worsening shortness of breath and some ongoing chest pain along the right chest. He came into [facility] and had significant this patient the right lung and a CAT scan of the chest showed a loculated right-sided pleural effusion with multiple pockets and right basilar atelectasis/consolidation. Left lung was essentially clear. The patient was started on a combination of antibiotics. I saw the patient and I recommended transfer. The patient's white cell count is at 16.3. Sodium level is at 131 with a BUN of 13 and a creatinine of 0.4. His current pulse ox is 94% on room air oxygen. He is obese and he uses inhalers for COPD. He is also known to have diabetes mellitus and hyperlipidemia. No 70 coronary artery disease. He has obstructive sleep apnea. Patient was seen today on 12/05/2021, patient had a right sided pigtail catheter placement by interventional radiology, and gross pus is being drained from the right sided empyema. Patient is already being seen by infectious disease, and he will be seen by thoracic surgery for possible alteplase infusion in the right pleural space. Clinically the patient is feeling much better. Breathing a lot easier. Cultures are pending. WBC count today is 10.6 hemoglobin is 13.8 electrolytes are normal renal profile is normal Patient was reevaluated today on 12/06/2021, doing better, breathing easier, no fever no chills, patient is postoperative day #1, status post right sided pigtail catheter placement by interventional radiology, patient had about 1350 ML of purulent drainage from the right sided empyema patient had lytic instillation/alteplase instillations in his right pleural cavity and was able to drain 850 ML. Patient is clinically better, he is still on broad-spectrum antibiotics, cultures are negative so far. Patient is yet to be seen by infectious disease on consultation for potential long-term IV antibiotics treatment. Patient is seen today 12/07/2021 in follow-up on the selective care unit. He is currently sitting up at the bedside. He is alert in no acute distress. He is maintaining good O2 saturations in the mid 90s on room air. He's been afebrile. Hemodynamically stable. Chest x-ray reveals similar mildly decreased right pleural effusion. Atelectasis and airspace disease in the right mid to lower lung mildly decreased. Pigtail catheter remains in place. He needs to drain cloudy fluid. Received alteplase and dornase infusion again today per CT services. Pleural fluid cultures are still pending. Sodium 133. Potassium 5.3. Chloride 95. Bicarb 30. BUN 11. Creatinine 0.78. Glucose 216. Vancomycin trough 20.4. He is continued on vancomycin and cefepime currently. Remains on Symbicort and albuterol. Objective - Vital Signs Vital signs: Vital Signs Temp 98.3 F 12/07/21 04:00 Pulse 92 12/07/21 08:04 Resp 18 12/07/21 04:00 BP 143/81 12/07/21 04:00 Pulse Ox 97 12/07/21 04:00 FiO2 Intake & Output 12/06/21 12/07/21 12/07/21 18:59 06:59 18:59 Intake Total 540 1080 240 Output Total 1950 1490 800 Balance -1410 -410 -560 Weight 121.6 kg 121.6 kg Intake: Oral 540 1080 240 Output: Chest Tube Drainage 1300 40 Chest Tube Right Upper 1300 40 Posterior Chest Urine 650 1450 800 Other: Voiding Method Toilet Toilet Urinal # Voids 2 3 - Exam GENERAL EXAM: Alert, very pleasant 50-year-old male patient, on room air, fairly comfortable in no apparent distress. HEAD: Normocephalic. EYES: Normal reaction of pupils, equal size. NOSE: Clear with pink turbinates. THROAT: No erythema or exudates. NECK: No masses, no JVD. CHEST: No chest wall deformity. Right-sided pigtail catheter posterior back re caitlyn in place. LUNGS: Equal air entry with crackles in the right mid and lower lung.. CVS: S1 and S2 normal with no audible murmur, regular rhythm. ABDOMEN: No hepatosplenomegaly, normal bowel sounds, no guarding or rigidity. SPINE: No scoliosis or deformity SKIN: No rashes CENTRAL NERVOUS SYSTEM: No focal deficits, tone is normal in all 4 extremities. EXTREMITIES: There is no peripheral edema. No clubbing, no cyanosis. Peripheral pulses are intact. - Labs CBC & Chem 7: 12/06/21 08:05 12/07/21 10:23 Labs: Abnormal Lab Results - Last 24 Hours (Table) 12/06/21 12/06/21 12/07/21 Range/Units 16:18 20:20 06:03 Sodium (137-145) mmol/L Potassium (3.5-5.1) mmol/L Chloride (98-107) mmol/L Glucose (74-99) mg/dL POC Glucose (mg/dL) 166 H 131 H 118 H (70-110) mg/dL 12/07/21 12/07/21 Range/Units 10:23 11:47 Sodium 133 L (137-145) mmol/L Potassium 5.3 H (3.5-5.1) mmol/L Chloride 95 L (98-107) mmol/L Glucose 216 H (74-99) mg/dL POC Glucose (mg/dL) 218 H (70-110) mg/dL Microbiology - Last 24 Hours (Table) 12/04/21 15:30 Gram Stain - Final Sputum Sputum Culture - Final Alina albicans 12/05/21 12:25 Gram Stain - Preliminary Pleural Fluid Body Fluid Culture - Preliminary 12/05/21 12:25 Fungal Culture - Preliminary Pleural Fluid 12/05/21 12:25 Acid Fast Bacilli Culture - Preliminary Pleural Fluid 12/05/21 12:25 Anaerobic Culture - Preliminary Pleural Fluid Assessment and Plan Assessment: Acute right-sided empyema, status post pigtail catheter placement 12/05/2021 attached to Pleura vac. Pleural fluid cultures pending. Remains on vancomycin and cefepime currently. Received alteplase and dornase today per CT services Acute hypoxemic respiratory failure secondary to above, recovered and currently on room air Recent right lower lobe pneumonia failed outpatient treatment Diabetes mellitus, type II Chronic obstructive pulmonary disease maintained oncology developed in the outpatient setting Obesity Obstructive sleep apnea noncompliant with CPAP History of chronic tobacco dependence Gastroesophageal reflux disease without esophagitis Plan: The patient was seen and evaluated Chest x-ray, labs and medications reviewed Remains on cefepime and vancomycin The pleural fluid cultures pending Received alteplase and dornase today per CT services Remains stable and on room air We will continue to follow I have personally seen and examined the patient, performed the documentation and the assessment and plan as written. Number of minutes spent on the visit: 10.
[2021-12-07 16:49] LABS: Glucose,Whole Blood 213 mg/dL (70-110)
--- NOTE | 2021-12-07 17:09 | P.PN ---
Subjective Progress Note Date: 12/07/21 Principal diagnosis: Empyema Patient is a 50-year male presented to hospital with right-sided chest pain did have a cough and purulent sputum patient be diagnosed with right-sided empyema in this patient who is status post chest tube placement completed this morning. On today's evaluation that is 12/07/2021, The patient denies having any fever or any chills, is breathing comfortably on room, the patient is still Complaining of pain to the right side of the chest patient denies any worsening cough or sputum production abdominal pain or diarrhea Objective - Vital Signs Vital signs: Vital Signs Temp 98.3 F 12/07/21 04:00 Pulse 92 12/07/21 08:04 Resp 18 12/07/21 04:00 BP 143/81 12/07/21 04:00 Pulse Ox 97 12/07/21 04:00 FiO2 Intake & Output 12/06/21 12/07/21 12/07/21 18:59 06:59 18:59 Intake Total 540 1080 Output Total 1950 1490 Balance -1410 -410 Weight 121.6 kg Intake: Oral 540 1080 Output: Chest Tube Drainage 1300 40 Chest Tube Right Upper 1300 40 Posterior Chest Urine 650 1450 Other: Voiding Method Toilet Toilet Urinal # Voids 2 3 - Exam GENERAL DESCRIPTION: Middle-aged male lying in bed, no distress. No tachypnea or accessory muscle of respiration use. LUNGS: Unlabored breathing. Decreased breath sound the base, chest tube with a purulent drainage HEART: S1, S2, regular rate and rhythm. No loud murmur ABDOMEN: Soft, no tenderness , guarding or rigidity, no organomegaly EXTREMITIES: No edema of feet. - Labs CBC & Chem 7: 12/06/21 08:05 12/07/21 10:23 Labs: Abnormal Lab Results - Last 24 Hours (Table) 12/06/21 12/06/21 12/06/21 Range/Units 11:45 16:18 20:20 POC Glucose (mg/dL) 113 H 166 H 131 H (70-110) mg/dL 12/07/21 Range/Units 06:03 POC Glucose (mg/dL) 118 H (70-110) mg/dL Microbiology - Last 24 Hours (Table) 12/04/21 15:30 Gram Stain - Final Sputum Sputum Culture - Final Alina albicans 12/05/21 12:25 Gram Stain - Preliminary Pleural Fluid Body Fluid Culture - Preliminary 12/05/21 12:25 Fungal Culture - Preliminary Pleural Fluid 12/05/21 12:25 Acid Fast Bacilli Culture - Preliminary Pleural Fluid 12/05/21 12:25 Anaerobic Culture - Preliminary Pleural Fluid Assessment and Plan (1) Pleural empyema Current Visit: Yes Status: Acute Code(s): J86.9 - PYOTHORAX WITHOUT FISTULA SNOMED Code(s): 87621400 Plan: 1patient present to hospital with sepsis secondary to right-sided empyema [facility] patient who is status post chest tube placement on 12/05/2021 with the cultures currently pending. 2The patient did have some clinical improvement, pleural fluid culture remains to be pending at this point sputum showing Alina more likely colonizer patient to continue vancomycin and cefepime while waiting for the culture to finalize discharge antibiotic on the basis of culture and more likely IV Time with Patient: Less than 30
[2021-12-07 20:09] LABS: Glucose,Whole Blood 200 mg/dL (70-110)
[2021-12-07] MEDS: METOPROLOL TARTRATE 25 MG TAB PO SCH (20:19)
[2021-12-08] MEDS: ONDANSETRON 4 MG/2 ML VIAL IVP PRN (00:01)
[2021-12-08] MEDS: HYDROmorphone 1 MG/ML 1 ML SYRINGE IVP PRN ×2 (00:01→23:32)
[2021-12-08] MEDS: TEMAZEPAM 15 MG CAP PO PRN (00:02)
[2021-12-08] MEDS: VANCOMYCIN 1,750 MG in SODIUM CHLORIDE 0.9% 500 ML 500 ML IVPB SCH ×2 (03:29→16:36)
[2021-12-08 06:10] LABS: Glucose,Whole Blood 131 mg/dL (70-110)
[2021-12-08] MEDS: INSULIN ASPART (NovoLOG) 100 UNIT/ML VIAL SQ SCH ×4 (06:29→20:42)
[2021-12-08] MEDS: HYDROcodone/APAP 5-325MG 1 EACH TAB PO PRN ×3 (06:31→20:40)
[2021-12-08] MEDS: PANTOPRAZOLE 40 MG TABLET PO SCH (06:31)
[2021-12-08] MEDS: SYMBICORT 80-4.5 MCG INHALER INHALATION SCH ×2 (07:38→20:43)
[2021-12-08] MEDS: IPRATROPIUM 0.5 MG/2.5 ML NEBU INHALATION SCH ×4 (07:38→20:43)
[2021-12-08 07:56] LABS: HCT 41.6 % (39.0-53.0); HGB 12.7 gm/dL (13.0-17.5); Hypochromasia Slight; MCH 27.2 pg (25.0-35.0); MCHC 30.6 g/dL (31.0-37.0); Platelet Count 727 k/uL (150-450); RBC 4.68 m/uL (4.30-5.90); RDW 12.7 % (11.5-15.5); WBC 13.3 k/uL (3.8-10.6)
--- NOTE | 2021-12-08 08:08 | P.PN ---
Subjective Progress Note Date: 12/08/21 Principal diagnosis: Loculated parapneumonic right-sided pleural effusion/possible empyema involving the right lung. Recent history of right lower lobe pneumonia, history of COPD, previous heavy tobacco dependence with recent cessation, obstructive sleep apnea without home CPAP use, type 2 diabetes, GERD POD#3 placement of right sided pigtail catheter by interventional radiology The patient was seen and examined this morning sitting up in bed in no acute distress eating breakfast. Does complain of right-sided back pain not completely controlled with current IV narcotic medication, was present throughout most of the day yesterday after instilling lytics, states breathing continues to get better. Remains in sinus rhythm and hemodynamically stable. Remains on room air with oxygen saturation 100% this morning. Able to achieve 1500 on incentive spirometry. Right sided pigtail catheter remains, 250 mL drained in the last 24 hours, fluid consistency looks less like pus, third dose lytics instilled yesterday. WBC 13.3 this morning, was 10.9 two days ago, remains afebrile. CXR reviewed this morning. Continues on IV vancomycin and cefepime per infectious disease, still awaiting final cultures. No other new concerns. Objective - Vital Signs Vital signs: Vital Signs Temp 98.4 F 12/08/21 03:59 Pulse 88 12/08/21 07:51 Resp 18 12/08/21 03:59 BP 137/66 12/08/21 03:59 Pulse Ox 90 L 12/08/21 03:59 FiO2 Intake & Output 12/07/21 12/08/21 12/08/21 18:59 06:59 18:59 Intake Total 598 540 Output Total 142 5775 Balance -382 -2140 Weight 121.6 kg Intake: Oral 598 540 Output: Chest Tube Drainage 180 60 Chest Tube Right Upper 180 60 Posterior Chest Urine 800 2625 Other: Voiding Method Toilet Urinal # Voids 1 - Exam CONSTITUTIONAL: Appears comfortable, cooperative, no acute distress RESPIRATORY: Lungs sounds diminished on the right. Respirations even, nonlabored. Currently on room air with oxygen saturation 100%. Able to achieve 1500 mL on incentive spirometry. Strong cough. Right sided pigtail present to continuous wall suction, 250 mL drained in the last 24 hours CARDIOVASCULAR: S1, S2 present. Regular rate and rhythm, sinus rhythm on telemetry. Palpable peripheral pulses bilaterally. No edema present. No calf pain or tenderness noted. GASTROINTESTINAL: Abdomen soft, nontender, nondistended. Active bowel sounds present 4 quadrants. Tolerating diet. GENITOURINARY: Continues to void clear, yellow urine INTEGUMENTARY: Skin is warm and dry with evidence of good perfusion. NEUROLOGIC: Cranial nerves II through XII intact MUSKULOSKELETAL: Able to move all extremities, strength equal bilaterally PSYCHIATRIC: Alert and oriented to person place and time, appropriate affect, intact judgment and insight - Allied health notes Allied health notes reviewed: nursing - Labs CBC & Chem 7: 12/08/21 06:38 12/08/21 06:38 Labs: Abnormal Lab Results - Last 24 Hours (Table) 12/07/21 12/07/21 12/07/21 Range/Units 10:23 11:47 16:36 WBC (3.8-10.6) k/uL Hgb (13.0-17.5) gm/dL MCHC (31.0-37.0) g/dL Plt Count (150-450) k/uL Sodium 133 L (137-145) mmol/L Potassium 5.3 H (3.5-5.1) mmol/L Chloride 95 L (98-107) mmol/L Glucose 216 H (74-99) mg/dL POC Glucose (mg/dL) 218 H 213 H (70-110) mg/dL 12/07/21 12/08/21 12/08/21 Range/Units 20:08 06:09 06:38 WBC 13.3 H (3.8-10.6) k/uL Hgb 12.7 L (13.0-17.5) gm/dL MCHC 30.6 L (31.0-37.0) g/dL Plt Count 727 H (150-450) k/uL Sodium (137-145) mmol/L Potassium (3.5-5.1) mmol/L Chloride (98-107) mmol/L Glucose (74-99) mg/dL POC Glucose (mg/dL) 200 H 131 H (70-110) mg/dL Microbiology - Last 24 Hours (Table) 12/05/21 12:25 Acid Fast Bacilli Smear - Final Pleural Fluid Acid Fast Bacilli Culture - Preliminary 12/04/21 15:30 Gram Stain - Final Sputum Sputum Culture - Final Alina albicans 09/06/22 12:25 Gram Stain - Preliminary Pleural Fluid Body Fluid Culture - Preliminary - Imaging and Cardiology Chest x-ray: image reviewed Assessment and Plan Assessment: 1. Loculated parapneumonic right-sided pleural effusion/empyema involving the right lung, status post placement of pigtail catheter by IR 2. Recent history of right lower lobe pneumonia 3. Shortness of breath, chest pain secondary to above 4. COPD 5. Previous heavy tobacco dependence with recent cessation 6. Obstructive sleep apnea without home CPAP use 7. Type 2 diabetes 8. GERD Plan: 1. Will repeat CT of the chest without contrast today, then make decision regarding 4th dose of lytics 2. Continue pigtail to wall suction, may remove suction to ambulate in room/hallway 3. Will continue to monitor daily CXRs 4. Continue antibiotics per ID, monitor for culture finalization 5. Continue to encourage incentive spirometer 6. GI/DVT prophylaxis 7. Medical management of other comorbidities per primary care service 8. More recommendations to follow.
[2021-12-08 08:14] LABS: African American GFR (CKD) >90 (>60 ml/min/1.73 sqM); Anion Gap 8 mmol/L; Blood Urea Nitrogen 10 mg/dL (9-20); Calcium 8.3 mg/dL (8.4-10.2); Carbon Dioxide 34 mmol/L (22-30); Chloride 91 mmol/L (98-107); Glucose 111 mg/dL (74-99); Non-African American GFR(CKD) >90 (>60 ml/min/1.73 sqM); Potassium 4.8 mmol/L (3.5-5.1); Sodium 133 mmol/L (137-145)
--- NOTE | 2021-12-08 08:32 | XR ---
EXAMINATION TYPE: XR chest 2V DATE OF EXAM: 12/08/2021 COMPARISON: 12/07/2021 TECHNIQUE: PA and lateral views submitted. HISTORY: Right-sided pleural effusion FINDINGS: Elevated right hemidiaphragm with right-sided consolidation and small effusion. Left lung clear. No i nterstitial edema or pneumothorax. Heart size normal. AC joint arthropathy seen. Appears to be a surg ical drain overlying the right upper quadrant. IMPRESSION: 1. Stable right-sided infiltrate and pleural effusion.
--- NOTE | 2021-12-08 09:37 | P.PN ---
Subjective Progress Note Date: 12/07/21 This is a 50-year-old male who was recently admitted at [facility] although sent here for further evaluation from cardiothoracic surgery for pericarditis and is being closely monitored. Multiple medical consultations placed including infectious disease, cardiology, pulmonary and cardiothoracic surgery. Patient was found to have flulike symptoms and right side when pain and found to have loculated pleural effusions on the right from CT with a peripneumonic effusion. Patient was placed on IV antibiotics with infectious disease consultation. Patient started having worsening chest pain and shortness of breath and went back to the hospital and sent over to [facility] for further evaluation. Initially patient's white count was elevated and sodium was slightly low and patient's oxygen saturations were above 90% on room air. Patient does have a past medical history of COPD, diabetes, GERD, sleep apnea but does not wear a CPAP, former smoker. Patient follows with Dr. Wellington in the outpatient setting. Sputum culture was obtained and pending. 12/05/2021 Patient is seen and evaluated this morning and follow-up and has been evaluated by cardiothoracic surgery recommending interventional radiology consultation for possible pigtail placement. Patient is also being followed closely by infectious disease and maintained on IV antibiotics and will continue. Awaiting pigtail catheter placement for right side empyema. Continue with pain management. Patient is afebrile and denies chest pain. Encouraged incentive spirometer use at least 10 times per hour while awake. Recommend repeat labs and possible chest xray in the am. 12/06/2021 Patient is evaluated today with multiple medical consultations following. Patient is postop chest tube placement of the right for loculated right empyema with continued purulent drainage noted. Patient is continued on IV antibiotics with ID following closely and patient will likely require a PICC line for outpatient antibiotics. Case management is following and working on verifying coverage. Awaiting finalized cultures to determine appropriate discharge antibiotics. Patient continues with chest wall pain and does have as needed medications and will also add oral medications to the regimen. Patient with some difficulty in sleeping and will add Restoril as needed. Encouraged continued incentive spirometer least 10 times every hour while awake. CT surgery following continuing on thrombolytics to ensure patency of the drainage tube. Recommend follow-up chest x-ray daily. Labs reviewed and WBC is trending down and will continue to monitor closely. Patient is afebrile and denies shortness of breath. Currently maintaining saturations above 95% on room air. Patient denies nausea or vomiting and is tolerating diet. Encouraged increased activity as tolerated. 12/07/2021 Patient seen and evaluated in follow-up post thrombolytics to the chest tube and having immense pain rating 10 out of 10 and is diaphoretic and feels somewhat short of breath. Patient is on room air and awaiting the nurse to arrive with pain medications. Chest x-ray this morning shows similar mildly decreased right pleural effusion with atelectasis and airspace disease in the right mid to lower lung mildly decreased. Patient is afebrile and denying chest pain although is having chest wall pain at the chest tube site. Sodium is 133 with a potassium of 5.3 and creatinine is 0.78. Blood sugars are being monitored and being maint ained on sliding scale along with long-acting. Patient is receiving IV pain medications and have added oral pain medications for breakthrough pain. Recommend continue with nebulized treatments along with inhalers and patient is also continued on IV cefepime and vancomycin with ID following closely awaiting for cultures. Sputum culture showing Alina albicans. Patient denies nausea or vomiting and is tolerating diet. Review of systems: Constitutional: No reports of fatigue, fever, or chills Cardiovascular: No reports of chest pain or palpitations, reports chest wall pain currently intense post thrombolytic with 10 out of 10 rating on the pain scale Respiratory: No reports of worsening shortness of breath or cough GI: No reports of nausea, vomiting, or diarrhea : No reports of dysuria or retention Neurovascular: No reports of weakness or numbness All medications have been reviewed Active Medications Acetaminophen (Acetaminophen Tab 325 Mg Tab) 650 mg PO Q4HR PRN PRN Reason: Fever and/or Mild Pain Last Admin: 12/03/21 23:36 Dose: 650 mg Hydrocodone Bitart/Acetaminophen (Hydrocodone/Apap 5-325mg 1 Each Tab) 1 each PO Q6HR PRN PRN Reason: Pain Last Admin: 12/08/21 06:31 Dose: 1 each Albuterol Sulfate (Albuterol Hfa Inhaler) 2 puff INHALATION RT-Q6H PRN PRN Reason: Shortness Of Breath Albuterol Sulfate (Albuterol Nebulized 2.5 Mg/3 Ml) 2.5 mg INHALATION RT-Q6H PRN PRN Reason: Shortness Of Breath Last Admin: 12/05/21 20:13 Dose: 2.5 mg Atorvastatin Calcium (Atorvastatin 40 Mg Tab) 40 mg PO DAILY [facility] Last Admin: 12/07/21 10:19 Dose: 40 mg Budesonide/Formoterol Fumarate (Symbicort 80-4.5 Mcg Inhaler) 2 puff INHALATION RT-BID [facility] Last Admin: 12/08/21 07:38 Dose: 2 puff Colchicine (Colchicine 0.6 Mg Each) 0.6 mg PO DAILY [facility] Last Admin: 12/07/21 10:19 Dose: 0.6 mg Dextrose/Water (Dextrose 50% Syringe 50 Ml) 25 ml IVP PER PROTOCOL PRN; Protocol PRN Reason: Hypoglycemia Dextrose/Water (Dextrose 50% Syringe 50 Ml) 50 ml IVP PER PROTOCOL PRN; Protocol PRN Reason: Hypoglycemia Enoxaparin Sodium (Enoxaparin 40 Mg/0.4 Ml Syringe) 40 mg SQ DAILY [facility] Last Admin: 12/07/21 10:19 Dose: 40 mg Fenofibrate (Fenofibrate 160 Mg Tab) 160 mg PO DAILY [facility] Last Admin: 12/07/21 10:19 Dose: 160 mg Furosemide (Furosemide 40 Mg Tab) 40 mg PO DAILY [facility] Last Admin: 12/07/21 10:19 Dose: 40 mg Hydromorphone HCl (Hydromorphone 1 Mg/Ml 1 Ml Syringe) 1 mg IVP Q2HR PRN PRN Reason: Pain Last Admin: 12/08/21 00:01 Dose: 1 mg Cefepime HCl 2 gm/ Sodium (Chloride) 100 mls @ 25 mls/hr IVPB Q8HR [facility]; Protocol Last Admin: 12/07/21 23:11 Dose: 25 mls/hr Vancomycin HCl 1,750 mg/ (Sodium Chloride) 500 mls @ 167 mls/hr IVPB Q12H [facility] Last Admin: 12/08/21 03:29 Dose: 167 mls/hr Insulin Aspart (Insulin Aspart (Novolog) 100 Unit/Ml Vial) 0 unit SQ ACHS [facility]; Protocol Last Admin: 12/08/21 06:29 Dose: Not Given Insulin Detemir (Insulin Detemir (Levemir) 100 Unit/Ml Syr) 40 unit SQ DAILY@0900 [facility] Last Admin: 12/07/21 10:18 Dose: 40 unit Ipratropium [place] (Ipratropium 0.5 Mg/2.5 Ml Nebu) 0.5 mg INHALATION RT-QID [facility] Last Admin: 12/08/21 07:38 Dose: 0.5 mg Lorazepam (Lorazepam 1 Mg Tab) 1 mg PO Q6HR PRN PRN Reason: Anxiety Metoprolol Tartrate (Metoprolol Tartrate 25 Mg Tab) 25 mg PO BID [facility] Last Admin: 12/07/21 20:19 Dose: 25 mg Miscellaneous Information (Vancomycin Trough Due 1 Each Misc) 1 each MISCELLANE ONCE ONE Stop: 12/10/21 03:01 Morphine Sulfate (Morphine Sulfate 4 Mg/Ml Syringe) 4 mg IVP Q2HR PRN PRN Reason: Pain Last Admin: 12/06/21 23:29 Dose: 4 mg Nitroglycerin (Nitroglycerin Sl Tabs 0.4 Mg Tab) 0.4 mg SUBLINGUAL Q5M PRN PRN Reason: Chest Pain Ondansetron HCl (Ondansetron 4 Mg/2 Ml Vial) 4 mg IVP Q4HR PRN PRN Reason: Nausea And Vomiting Last Admin: 12/08/21 00:01 Dose: 4 mg Pantoprazole Sodium (Pantoprazole 40 Mg Tablet) 40 mg PO AC-[id number] [facility] Last Admin: 12/08/21 06:31 Dose: 40 mg Temazepam (Temazepam 15 Mg Cap) 15 mg PO HS PRN PRN Reason: Insomnia Last Admin: 12/08/21 00:02 Dose: 15 mg PHYSICAL EXAMINATION: GENERAL: The patient is alert and oriented x3, not in any acute distress. Well developed, well nourished. HEENT: Pupils are round and equally reacting to light. EOMI. No scleral icterus. No conjunctival pallor. Normocephalic, atraumatic. No pharyngeal erythema. No thyromegaly. CARDIOVASCULAR: S1 and S2 present. No murmurs, rubs, or gallops. PULMONARY: Bilateral diminished breath sounds with some scattered rhonchi noted. Right chest tube noted currently empty as the container was just changed by CT surgery ABDOMEN: Soft, nontender, nondistended, normoactive bowel sounds. No palpable organomegaly. MUSCULOSKELETAL: No joint swelling or deformity. EXTREMITIES: No cyanosis, clubbing, or pedal edema. NEUROLOGICAL: Gross neurological examination did not reveal any focal deficits. SKIN: No rashes. Assessment: Right side chest pain with loculated pleural effusion Empyema of the right lung status post chest tube placement Peripneumonic effusion secondary to pleural effusion with empyema of the right lung Recent right lower lobe pneumonia, was on antibiotics and steroids outpatient Shortness of breath secondary to above Diabetes mellitus type 2 COPD, not in exacerbation History of obstructive sleep apnea although does not wear a CPAP Gastroesophageal reflux disease Former smoker GI prophylaxis DVT prophylaxis: on eliquis Full code Plan: Recommend IV antibiotics with infectious disease following, patient may require IV antibiotics with a PICC line outpatient and will consult case management to verify coverage Cardiothoracic surgery following and administering thrombolytics to ensure patency of the chest tube, post IR chest tube catheter placement on 12/05/2021 Pulmonary and cardiology following Recommend resuming home meds and continuing with breathing inhalational treatments Patient is transitioned to oral Lasix along with colchicine per cardiology Recommend repeat labs and follow-up chest x-ray Recommend Accu-Cheks before meals and at bedtime along with sliding scale and lo ng-acting insulin Prognosis is guarded. The impression and plan of care has been dictated by Roya Chandra, Nurse Practitioner as directed. MD Lima I have performed a history and examination and MDM of this patient, discussed the same with the dictator, and agree with the dictator's assessment and plan as written ,documented as a scribe. Based on total visit time, I have performed more than 50% of the visit. Objective - Vital Signs Vital signs: Vital Signs Temp 98.3 F 12/07/21 04:00 Pulse 92 12/07/21 08:04 Resp 18 12/07/21 04:00 BP 143/81 12/07/21 04:00 Pulse Ox 97 12/07/21 04:00 FiO2 Intake & Output 12/06/21 12/07/21 12/07/21 18:59 06:59 18:59 Intake Total 540 1080 Output Total 1950 1490 Balance -1410 -410 Weight 121.6 kg Intake: Oral 540 1080 Output: Chest Tube Drainage 1300 40 Chest Tube Right Upper 1300 40 Posterior Chest Urine 650 1450 Other: Voiding Method Toilet Toilet Urinal # Voids 2 3 - Labs CBC & Chem 7: 12/08/21 06:38 12/08/21 06:38 Labs: Abnormal Lab Results - Last 24 Hours (Table) 12/06/21 12/06/21 12/06/21 Range/Units 08:05 08:05 11:45 WBC 10.9 H (3.8-10.6) k/uL Hgb 12.4 L (13.0-17.5) gm/dL MCHC 30.8 L (31.0-37.0) g/dL Plt Count 589 H (150-450) k/uL Neutrophils # 8.3 H (1.3-7.7) k/uL Sodium 132 L (137-145) mmol/L Chloride 94 L (98-107) mmol/L Glucose 159 H (74-99) mg/dL POC Glucose (mg/dL) 113 H (70-110) mg/dL Calcium 7.9 L (8.4-10.2) mg/dL 12/06/21 12/06/21 12/07/21 Range/Units 16:18 20:20 06:03 WBC (3.8-10.6) k/uL Hgb (13.0-17.5) gm/dL MCHC (31.0-37.0) g/dL Plt Count (150-450) k/uL Neutrophils # (1.3-7.7) k/uL Sodium (137-145) mmol/L Chloride (98-107) mmol/L Glucose (74-99) mg/dL POC Glucose (mg/dL) 166 H 131 H 118 H (70-110) mg/dL Calcium (8.4-10.2) mg/dL Microbiology - Last 24 Hours (Table) 12/05/21 12:25 Gram Stain - Preliminary Pleural Fluid Body Fluid Culture - Preliminary 12/04/21 15:30 Gram Stain - Preliminary Sputum Sputum Culture - Preliminary Alina albicans 12/05/21 12:25 Fungal Culture - Preliminary Pleural Fluid 12/05/21 12:25 Acid Fast Bacilli Culture - Preliminary Pleural Fluid 12/05/21 12:25 Anaerobic Culture - Preliminary Pleural Fluid
--- NOTE | 2021-12-08 10:07 | XR ---
AP chest x-ray HISTORY: Status post chest tube placement Single frontal view of the chest is submitted. Comparison to chest CT from outside institution. There has been interval placement of a chest tube, pigtail catheter is coiled in the posterior right chest. Right-sided pleural effusion and associated atelectatic changes are again noted. Left lung is spared. Heart size is likely within normal limits. There are overlying leads. No evident pneumothorax. IMPRESSION: Status post pigtail catheter placement right posterior chest without complication. MTDD
--- NOTE | 2021-12-08 10:08 | US ---
EXAMINATION TYPE: US guided chest tube placement DATE OF EXAM: 12/07/2021 COMPARISON: CT from outside institution HISTORY: Right Pleural effusion. FINDINGS: Maximal barrier technique was utilized. The skin overlying a suitable pocket of fluid in the posterior right chest was localized and the overlying skin prepped and draped. Lidocaine was used for local anesthesia. Ultrasound was used with sterile technique. A 21-gauge needle was advanced into the right pleural fluid collection using ultrasound guidance , purulent material noted in the hub of the needle, 0.018 inch wire was advanced and the access site was subsequently increased with a transitional dilator and wire, the access site was dilated, 8.5 Kisw[place]ili catheter advanced and fixed in place. 20 cc purulent material obtained for laboratory analysis. Catheter attached to water seal. Post procedure chest x-ray pending. There is no immediate complication. The patient discharged in stable condition without complication. IMPRESSION: STATUS POST ULTRASOUND GUIDED PLEURAL DRAINAGE TUBE CATHETER PLACEMENT, POST PROCEDURE CHEST X-RAY PENDING. THIS PROCEDURE WAS PERFORMED BY THE UNDERSIGNED. LUIS CARLOS
[2021-12-08] MEDS: METOPROLOL TARTRATE 25 MG TAB PO SCH ×2 (10:11→20:40)
[2021-12-08] MEDS: COLCHICINE 0.6 MG EACH PO SCH (10:11)
[2021-12-08] MEDS: FUROSEMIDE 40 MG TAB PO SCH (10:11)
[2021-12-08] MEDS: ATORVASTATIN 40 MG TAB PO SCH (10:11)
[2021-12-08] MEDS: INSULIN DETEMIR (LEVEMIR) 100 UNIT/ML SYR SQ SCH (10:11)
[2021-12-08] MEDS: FENOFIBRATE 160 MG TAB PO SCH (10:11)
[2021-12-08] MEDS: CEFEPIME 2 GM in SODIUM CHLORIDE 0.9% 100 ML IVPB SCH ×3 (10:12→23:27)
[2021-12-08] MEDS: ENOXAPARIN 40 MG/0.4 ML SYRINGE SQ SCH (10:12)
--- NOTE | 2021-12-08 11:38 | P.PN ---
Subjective Progress Note Date: 12/08/21 HISTORY OF PRESENT ILLNESS: This is a 50-year-old male who does not follow regularly with a chief executive. Patient was transferred from [facility] secondary to loculated right-sided pleural effusion. Patient has a history of pneumonia and was treated last month with antibiotics. Patient had a echocardiogram completed at [facility] which revealed normal LV function. Patient is sitting up in the chair this morning. He denies chest pain or pressure. Denies SOB. 12/06/2021 Patient examined this morning. He is sitting up in the chair. He denies chest p ain or pressure. Denies SOB. He is s/p pigtail catheter insertion with lytic instillation draining yellow purulent drainage. He complains of pain at catheter insertion site 11/08. 12/07/2021 Patient examined this morning at the bedside. Patient denies chest pain or pressure. Denies SOB. Reports pain at pigtail catheter site. Telemetry reveals sinus mechanism. 12/08/2021 Patient examined this morning the bedside. Patient denies chest pain or pressure. He denies shortness of breath. Patient continues to report pain at pigtail catheter site. Patient remains in sinus mechanism per telemetry. PHYSICAL EXAM: VITAL SIGNS: Reviewed. GENERAL: Well-developed in no acute distress. NECK: Supple. No JVD or thyromegaly LUNGS: Respirations even and unlabored. Lungs diminished on the right side. HEART: Regular rate and rhythm. S1 and S2 heard. EXTREMITIES: Normal range of motion. No clubbing or cyanosis. Peripheral pulses intact. Trace lower extremity edema ASSESSMENT: Pericarditis Recent pneumonia/pneumonitis Loculated right-sided pleural effusion Isolated episode of atrial fibrillation, per cardiology documentation 12/04/2021 Diabetes COPD Former nicotine dependence PLAN: Continue current cardiac medications CT Surgery and pulmonary following. Plan for repeat CT chest today. Further recommendations pending patient course Nurse practitioner note has been reviewed by physician. Signing provider agrees with the documented findings, assessment, and plan of care. Objective - Vital Signs Vital signs: Vital Signs Temp 98.7 F 12/08/21 07:58 Pulse 76 12/08/21 11:24 Resp 17 12/08/21 09:03 BP 135/79 12/08/21 07:58 Pulse Ox 100 12/08/21 07:58 FiO2 Intake & Output 12/07/21 12/08/2112/08/22 18:59 06:59 18:59 Intake Total 598 540 200 Output Total 980 3185 810 Balance -382 -2145 -610 Weight 121.6 kg Intake: Oral 598 540 200 Output: Chest Tube Drainage 180 60 10 Chest Tube Right Upper 180 60 10 Posterior Chest Urine 800 2625 800 Other: Voiding Method Toilet Urinal Urinal # Voids 1 2 - Labs CBC & Chem 7: 12/08/21 06:38 12/08/21 06:38 Labs: Abnormal Lab Results - Last 24 Hours (Table) 12/07/21 12/07/21 12/07/21 Range/Units 11:47 16:36 20:08 WBC (3.8-10.6) k/uL Hgb (13.0-17.5) gm/dL MCHC (31.0-37.0) g/dL Plt Count (150-450) k/uL Sodium (137-145) mmol/L Chloride (98-107) mmol/L Carbon Dioxide (22-30) mmol/L Glucose (74-99) mg/dL POC Glucose (mg/dL) 218 H 213 H 200 H (70-110) mg/dL Calcium (8.4-10.2) mg/dL 12/08/21 12/08/21 12/08/21 Range/Units 06:09 06:38 06:38 WBC 13.3 H (3.8-10.6) k/uL Hgb 12.7 L (13.0-17.5) gm/dL MCHC 30.6 L (31.0-37.0) g/dL Plt Count 727 H (150-450) k/uL Sodium 133 L (137-145) mmol/L Chloride 91 L (98-107) mmol/L Carbon Dioxide 34 H (22-30) mmol/L Glucose 111 H (74-99) mg/dL POC Glucose (mg/dL) 131 H (70-110) mg/dL Calcium 8.3 L (8.4-10.2) mg/dL Microbiology - Last 24 Hours (Table) 12/05/21 12:25 Acid Fast Bacilli Smear - Final Pleural Fluid Acid Fast Bacilli Culture - Preliminary 12/04/21 15:30 Gram Stain - Final Sputum Sputum Culture - Final Alina albicans 12/05/21 12:25 Gram Stain - Preliminary Pleural Fluid Body Fluid Culture - Preliminary
[2021-12-08 11:42] LABS: Glucose,Whole Blood 235 mg/dL (70-110)
--- NOTE | 2021-12-08 12:44 | CT ---
EXAMINATION TYPE: CT chest wo con DATE OF EXAM: 12/08/2021 COMPARISON: Radiograph 12/08/2021 HISTORY: 50-year-old male with pain, follow-up for evaluation of right-sided empyema TECHNIQUE: Contiguous axial scanning of the chest without IV contrast. Coronal and sagittal reconstru ctions performed. CT DLP: 782.8 mGycm Automated exposure control for dose reduction was used. FINDINGS: Heart normal size with trace pericardial thickening. There are three-vessel coronary artery calcifica tions, extensive within the LAD. Aorta normal caliber with bovine configuration to the aortic arch. Mild bilateral gynecomastia. Scattered nonenlarged mediastinal lymph nodes. Mildly enlarged 1.4 cm lower right paratracheal lymph node is present as well as a mildly enlarged 1.9 cm subcarinal lymph node. Pleural thickening right mid and lower hemithorax. There is a small empyema. Some foci of air within the effusion likely due to the indwelling pleural catheter. Note that the catheter has been pulled b ack so that the radiodense marker is within the chest wall soft tissues. There is corresponding extra pleural air within the soft tissues and some soft tissue thickening directly overlying the rib cage t hat could represent leaking infective fluid into the chest wall soft tissues, for example, refer to a xial image 54 and 56. Patchy opacity throughout the right mid and lower lung. Left lung and pleural space are clear. Low-attenuation of the liver suggesting underlying fatty infiltration. Bones: No osseous destructive process. Normal variant sternal foramen. IMPRESSION: 1. RIGHT-SIDED BASILAR PIGTAIL PLEURAL CATHETER. NOTE THAT THE RADIODENSE MARKER IS PULLED OUT INTO T HE POSTERIOR CHEST WALL SOFT TISSUES. THERE MAY BE SOME LEAKING INFECTIVE FLUID INTO THE SOFT TISSUES HERE, FOR EXAMPLE, AXIAL IMAGE 54 AND 56. 2. RESIDUAL SMALL RIGHT BASILAR EMPYEMA. SMALL FOCI OF AIR IN THE EFFUSION LIKELY RELATING TO THE IND WELLING CATHETER. 3. PATCHY INFILTRATE THROUGHOUT THE RIGHT MID AND LOWER LUNG. 4. MILDLY ENLARGED LOWER RIGHT PARATRACHEAL AND SUBCARINAL NODES MEASURING UP TO 1.9 CM MAY BE REACTI VE. FOLLOW-UP AFTER TREATMENT TO ENSURE STABILITY/RESOLUTION.
--- NOTE | 2021-12-08 13:48 | P.PN ---
Subjective Progress Note Date: 12/08/21 Principal diagnosis: Right sided empyema Patient was seen today on 12/05/2021, patient had a right sided pigtail catheter placement by interventional radiology, and gross pus is being drained from the right sided empyema. Patient is already being seen by infectious disease, and h diamond will be seen by thoracic surgery for possible alteplase infusion in the right pleural space. Clinically the patient is feeling much better. Breathing a lot easier. Cultures are pending. WBC count today is 10.6 hemoglobin is 13.8 electrolytes are normal renal profile is normal Patient was reevaluated today on 12/06/2021, doing better, breathing easier, no fever no chills, patient is postoperative day #1, status post right sided pigtail catheter placement by interventional radiology, patient had about 1350 ML of purulent drainage from the right sided empyema patient had lytic instillation/alteplase instillations in his right pleural cavity and was able to drain 850 ML. Patient is clinically better, he is still on broad-spectrum antibiotics, cultures are negative so far. Patient is yet to be seen by infectious disease on consultation for potential long-term IV antibiotics treatment Patient is seen today 12/07/2021 in follow-up on the selective care unit. He is currently sitting up at the bedside. He is alert in no acute distress. He is maintaining good O2 saturations in the mid 90s on room air. He's been afebrile. Hemodynamically stable. Chest x-ray reveals similar mildly decreased right pleural effusion. Atelectasis and airspace disease in the right mid to lower lung mildly decreased. Pigtail catheter remains in place. He needs to drain cloudy fluid. Received alteplase and dornase infusion again today per CT services. Pleural fluid cultures are still pending. Sodium 133. Potassium 5.3. Chloride 95. Bicarb 30. BUN 11. Creatinine 0.78. Glucose 216. Va ncomycin trough 20.4. He is continued on vancomycin and cefepime currently. Remains on Symbicort and albuterol. Reevaluated today on 12/08/2021, patient continues to have pigtail catheter in place, continues to have purulent drainage, cultures remain negative. Patient remains on vancomycin and cefepime as per infectious disease on the case. WBC count of 13.3, no thrombolytic instillation done today. Patient is scheduled to have a repeat CT of the chest without contrast today and decision will be made whether more Lasix to be instilled in the right pleural space. Objective - Vital Signs Vital signs: Vital Signs Temp 97.6 F 12/08/21 11:54 Pulse 74 12/08/21 11:54 Resp 17 12/08/21 11:54 BP 142/84 12/08/21 11:54 Pulse Ox 97 12/08/21 11:54 FiO2 Intake & Output 12/07/21 12/08/21 12/08/21 18:59 06:59 18:59 Intake Total 598 540 200 Output Total 980 2685 2500 Balance -382 -9450 -0616 Weight 121.6 kg Intake: Oral 598 540 200 Output: Chest Tube Drainage 180 60 0 Chest Tube Right Upper 180 60 0 Posterior Chest Urine 800 2625 2500 Other: Voiding Method Toilet Urinal Urinal # Voids 1 2 - Exam Physical Exam: Revealed 50-year-old white male in no distress on room air. Head: Atraumatic, normocephalic. HEENT:[Neck is supple.] [No neck masses.] [No thyromegaly.] [No JVD.] Chest: [Diminished breath sounds and dullness at the right base, pigtail catheter connected to Pleur-evac is noted with gross pus draining into the pleural VAC. Cardiac Exam: [Normal S1 and S2, no S3 gallop, no murmur.] Abdomen: [Soft, nontender, no megaly, no rebound, no guarding, normal bowel sounds.] Extremities: [No clubbing, no edema, no cyanosis.] Neurological Exam: [No focal neurologic deficit.] Alert oriented 3 focal deficits. Psychiatric: Normal mood, affect and normal mental status examination. Skin: No rashes. - Labs CBC & Chem 7: 12/08/21 06:38 12/08/21 06:38 Labs: Abnormal Lab Results - Last 24 Hours (Table) 12/07/21 12/07/21 12/08/21 Range/Units 16:36 20:08 06:09 WBC (3.8-10.6) k/uL Hgb (13.0-17.5) gm/dL MCHC (31.0-37.0) g/dL Plt Count (150-450) k/uL Sodium (137-145) mmol/L Chloride (98-107) mmol/L Carbon Dioxide (22-30) mmol/L Glucose (74-99) mg/dL POC Glucose (mg/dL) 213 H 200 H 131 H (70-110) mg/dL Calcium (8.4-10.2) mg/dL 12/08/21 12/08/21 12/08/21 Range/Units 06:38 06:38 11:28 WBC 13.3 H (3.8-10.6) k/uL Hgb 12.7 L (13.0-17.5) gm/dL MCHC 30.6 L (31.0-37.0) g/dL Plt Count 727 H (150-450) k/uL Sodium 133 L (137-145) mmol/L Chloride 91 L (98-107) mmol/L Carbon Dioxide 34 H (22-30) mmol/L Glucose 111 H (74-99) mg/dL POC Glucose (mg/dL) 235 H (70-110) mg/dL Calcium 8.3 L (8.4-10.2) mg/dL Microbiology - Last 24 Hours (Table) 12/05/21 12:25 Acid Fast Bacilli Smear - Final Pleural Fluid Acid Fast Bacilli Culture - Preliminary 12/04/21 15:30 Gram Stain - Final Sputum Sputum Culture - Final Alina albicans Assessment and Plan Assessment: Impression: Acute right sided empyema, status post pigtail catheter placement by interventional radiology, postoperative day #3 Status post installation of alteplase to help drain loculated pleural effusion patient had a total of 3 instillations of thrombolytics in right pleural space Recent right lower lobe pneumonia treated on outpatient basis Type 2 diabetes. COPD, maintained on Trelegy Ellipta on outpatient basis Obstructive sleep apnea syndrome not compliant with CPAP. Recommendation: Continue antibiotics cefepime/vancomycin Continue bronchodilators. Continue incentive spirometry Agree with CT of the chest without contrast to be done today. We will continue to follow Time with Patient: Less than 30
--- NOTE | 2021-12-08 16:23 | P.PN ---
Subjective Progress Note Date: 12/08/21 Principal diagnosis: Empyema Patient is a 50-year male presented to hospital with right-sided chest pain did have a cough and purulent sputum patient be diagnosed with right-sided empyema in this patient who is status post chest tube placement , the patient did have a repeat CT of the chest on 12/08/2021 with evidence of possible displacement of the pigtail catheter and a repeat chest tube placement by the IR completed on 12/08/2021 On today's evaluation that is 12/08/2021, The patient remains to be afebrile, the patient is breathing comfortably on room, the patient chest pain has slightly decreased intensity, but denies any worsening cough or sputum production no nausea no vomiting no abdominal pain and no diarrhea Objective - Vital Signs Vital signs: Vital Signs Temp 97.6 F 12/08/21 11:54 Pulse 74 12/08/21 11:54 Resp 17 12/08/21 11:54 BP 142/84 12/08/21 11:54 Pulse Ox 97 12/08/21 11:54 FiO2 Intake & Output 12/07/21 12/08/21 12/08/21 18:59 06:59 18:59 Intake Total 598 540 200 Output Total 980 2685 2500 Balance -382 -0169 -0549 Weight 121.6 kg Intake: Oral 598 540 200 Output: Chest Tube Drainage 180 60 0 Chest Tube Right Upper 180 60 0 Posterior Chest Urine 800 2625 2500 Other: Voiding Method Toilet Urinal Urinal # Voids 1 2 - Exam GENERAL DESCRIPTION: Middle-aged male lying in bed, no distress. No tachypnea or accessory muscle of respiration use. LUNGS: Unlabored breathing. Decreased breath sound the base, chest tube with a purulent drainage HEART: S1, S2, regular rate and rhythm. No loud murmur ABDOMEN: Soft, no tenderness , guarding or rigidity, no organomegaly EXTREMITIES: No edema of feet. - Labs CBC & Chem 7: 12/08/21 06:38 12/08/21 06:38 Labs: Abnormal Lab Results - Last 24 Hours (Table) 12/07/21 12/07/21 12/08/21 Range/Units 16:36 20:08 06:09 WBC (3.8-10.6) k/uL Hgb (13.0-17.5) gm/dL MCHC (31.0-37.0) g/dL Plt Count (150-450) k/uL Sodium (137-145) mmol/L Chloride (98-107) mmol/L Carbon Dioxide (22-30) mmol/L Glucose (74-99) mg/dL POC Glucose (mg/dL) 213 H 200 H 131 H (70-110) mg/dL Calcium (8.4-10.2) mg/dL 12/08/21 12/08/21 12/08/21 Range/Units 06:38 06:38 11:28 WBC 13.3 H (3.8-10.6) k/uL Hgb 12.7 L (13.0-17.5) gm/dL MCHC 30.6 L (31.0-37.0) g/dL Plt Count 727 H (150-450) k/uL Sodium 133 L (137-145) mmol/L Chloride 91 L (98-107) mmol/L Carbon Dioxide 34 H (22-30) mmol/L Glucose 111 H (74-99) mg/dL POC Glucose (mg/dL) 235 H (70-110) mg/dL Calcium 8.3 L (8.4-10.2) mg/dL Microbiology - Last 24 Hours (Table) 12/05/21 12:25 Acid Fast Bacilli Smear - Final Pleural Fluid Acid Fast Bacilli Culture - Preliminary 12/04/21 15:30 Gram Stain - Final Sputum Sputum Culture - Final Alina albicans 12/05/21 12:25 Gram Stain - Preliminary Pleural Fluid Body Fluid Culture - Preliminary Assessment and Plan (1) Pleural empyema Current Visit: Yes Status: Acute Code(s): J86.9 - PYOTHORAX WITHOUT FISTULA SNOMED Code(s): 09442016 Plan: 1patient present to hospital with sepsis secondary to right-sided empyema in this patient who is status post chest tube placement on 12/05/2021 with the cultures currently pending. 2The patient did have some clinical improvement, pleural fluid culture remains to be pending as of 12/08/2021, the patient sputum showing Alina more likely colonizer patient to continue vancomycin and cefepime while waiting for the culture to finalize discharge antibiotic on the basis of culture Time with Patient: Less than 30
[2021-12-08 17:21] LABS: Glucose,Whole Blood 218 mg/dL (70-110)
--- NOTE | 2021-12-08 19:07 | P.PN ---
Subjective Progress Note Date: 12/08/21 This is a 50-year-old male who was recently admitted at [facility] although sent here for further evaluation from cardiothoracic surgery for pericarditis and is being closely monitored. Multiple medical consultations placed including infectious disease, cardiology, pulmonary and cardiothoracic surgery. Patient was found to have flulike symptoms and right side when pain and found to have loculated pleural effusions on the right from CT with a peripneumonic effusion. Patient was placed on IV antibiotics with infectious disease consultation. Patient started having worsening chest pain and shortness of breath and went back to the hospital and sent over to [facility] for further evaluation. Initially patient's white count was elevated and sodium was slightly low and patient's oxygen saturations were above 90% on room air. Patient does have a past medical history of COPD, diabetes, GERD, sleep apnea but does not wear a CPAP, former smoker. Patient follows with Dr. Wellington in the outpatient setting. Sputum culture was obtained and pending. 12/05/2021 Patient is seen and evaluated this morning and follow-up and has been evaluated by cardiothoracic surgery recommending interventional radiology consultation for possible pigtail placement. Patient is also being followed closely by infectious disease and maintained on IV antibiotics and will continue. Awaiting pigtail catheter placement for right side empyema. Continue with pain management. Patient is afebrile and denies chest pain. Encouraged incentive spirometer use at least 10 times per hour while awake. Recommend repeat labs and possible chest xray in the am. 12/06/2021 Patient is evaluated today with multiple medical consultations following. Patient is postop chest tube placement of the right for loculated right empyema with continued purulent drainage noted. Patient is continued on IV antibiotics with ID following closely and patient will likely require a PICC line for outpatient antibiotics. Case management is following and working on verifying coverage. Awaiting finalized cultures to determine appropriate discharge antibiotics. Patient continues with chest wall pain and does have as needed medications and will also add oral medications to the regimen. Patient with some difficulty in sleeping and will add Restoril as needed. Encouraged continued incentive spirometer least 10 times every hour while awake. CT surgery following continuing on thrombolytics to ensure patency of the drainage tube. Recommend follow-up chest x-ray daily. Labs reviewed and WBC is trending down and will continue to monitor closely. Patient is afebrile and denies shortness of breath. Currently maintaining saturations above 95% on room air. Patient denies nausea or vomiting and is tolerating diet. Encouraged increased activity as tolerated. 12/07/2021 Patient seen and evaluated in follow-up post thrombolytics to the chest tube and having immense pain rating 10 out of 10 and is diaphoretic and feels somewhat short of breath. Patient is on room air and awaiting the nurse to arrive with pain medications. Chest x-ray this morning shows similar mildly decreased right pleural effusion with atelectasis and airspace disease in the right mid to lower lung mildly decreased. Patient is afebrile and denying chest pain although is having chest wall pain at the chest tube site. Sodium is 133 with a potassium of 5.3 and creatinine is 0.78. Blood sugars are being monitored and being maint ained on sliding scale along with long-acting. Patient is receiving IV pain medications and have added oral pain medications for breakthrough pain. Recommend continue with nebulized treatments along with inhalers and patient is also continued on IV cefepime and vancomycin with ID following closely awaiting for cultures. Sputum culture showing Alina albicans. Patient denies nausea or vomiting and is tolerating diet. 12/08/2021 Patient is seen today and is to receive a repeat CT of the chest to assess the loculation and degree of abscess and if improving. Patient continues with a pigtail catheter of the right and dressing on the right back is dry and intact with no surrounding redness of swelling noted. Patient is continued on IV abx and pain management with multiple medical consultations following. Patient reports he feels somewhat improved especially better than yesterday. Patient is not receiving lytic therapy today. Awaiting CT report and cultures continued to be pending at this time. ID following closely as well as case management and verifying outpatient IV abx coverage. Patient is afebrile and denies chest pain or palpitations. Patient is tolerating diet with no reports of nausea or vomiting noted. Review of systems: Constitutional: No reports of fatigue, fever, or chills Cardiovascular: No reports of chest pain or palpitations, reports somewhat improved chest wall pain Respiratory: No reports of worsening shortness of breath or cough GI: No reports of nausea, vomiting, or diarrhea : No reports of dysuria or retention Neurovascular: No reports of weakness or numbness All medications have been reviewed PHYSICAL EXAMINATION: GENERAL: The patient is alert and oriented x3, not in any acute distress. Well developed, well nourished. HEENT: Pupils are round and equally reacting to light. EOMI. No scleral icterus. No conjunctival pallor. Normocephalic, atraumatic. No pharyngeal erythema. No thyromegaly. CARDIOVASCULAR: S1 and S2 present. No murmurs, rubs, or gallops. PULMONARY: Bilateral diminished breath sounds with some scattered rhonchi noted. Right chest tube noted with bloody drainage in the container ABDOMEN: Soft, nontender, nondistended, normoactive bowel sounds. No palpable organomegaly. MUSCULOSKELETAL: No joint swelling or deformity. EXTREMITIES: No cyanosis, clubbing, or pedal edema. NEUROLOGICAL: Gross neurological examination did not reveal any focal deficits. SKIN: No rashes. Assessment: Right side chest pain with loculated pleural effusion Empyema of the right lung status post chest tube placement Peripneumonic effusion secondary to pleural effusion with empyema of the right lung Recent right lower lobe pneumonia, was on antibiotics and steroids outpatient Shortness of breath secondary to above Diabetes mellitus type 2 COPD, not in exacerbation History of obstructive sleep apnea although does not wear a CPAP Gastroesophageal reflux disease Former smoker GI prophylaxis DVT prophylaxis: on eliquis Full code Plan: Recommend IV antibiotics with infectious disease following, patient will require IV antibiotics with a PICC line outpatient and case management following to verify and arrange discharge planning needs Cardiothoracic surgery following and administering thrombolytics x3 so far to ensure patency of the chest tube, post IR chest tube catheter placement on 12/05/2021, no plans for lytic therapy today and awaiting repeat CT chest ordered today Pulmonary and cardiology following Recommend resuming home meds and continuing with breathing inhalational treatments Patient is transitioned to oral Lasix along with colchicine per cardiology Recommend repeat labs and follow-up chest x-ray Recommend Accu-Cheks before meals and at bedtime along with sliding scale and long-acting insulin Prognosis is guarded. The impression and plan of care has been dictated by Roya Chandra, Nurse Practitioner as directed. MD Lima I have performed a history and examination and MDM of this patient, discussed the same with the dictator, and agree with the dictator's assessment and plan as written ,documented as a scribe. Based on total visit time, I have performed more than 50% of the visit. Objective - Vital Signs Vital signs: Vital Signs Temp 98.7 F 12/08/21 07:58 Pulse 89 12/08/21 09:03 Resp 17 12/08/21 09:03 BP 135/79 12/08/21 07:58 Pulse Ox 100 12/08/21 07:58 FiO2 Intake & Output 12/07/21 12/08/21 12/08/21 18:59 06:59 18:59 Intake Total 598 540 Output Total 980 2685 Balance -382 -2145 Weight 121.6 kg Intake: Oral 598 540 Output: Chest Tube Drainage 180 60 Chest Tube Right Upper 180 60 Posterior Chest Urine 800 2625 Other: Voiding Method Toilet Urinal Urinal # Voids 1 - Labs CBC & Chem 7: 12/08/21 06:38 12/08/21 06:38 Labs: Abnormal Lab Results - Last 24 Hours (Table) 12/07/21 12/07/21 12/07/21 Range/Units 10:23 11:47 16:36 WBC (3.8-10.6) k/uL Hgb (13.0-17.5) gm/dL MCHC (31.0-37.0) g/dL Plt Count (150-450) k/uL Sodium 133 L (137-145) mmol/L Potassium 5.3 H (3.5-5.1) mmol/L Chloride 95 L (98-107) mmol/L Carbon Dioxide (22-30) mmol/L Glucose 216 H (74-99) mg/dL POC Glucose (mg/dL) 218 H 213 H (70-110) mg/dL Calcium (8.4-10.2) mg/dL 12/07/21 12/08/21 12/08/21 Range/Units 20:08 06:09 06:38 WBC (3.8-10.6) k/uL Hgb (13.0-17.5) gm/dL MCHC (31.0-37.0) g/dL Plt Count (150-450) k/uL Sodium 133 L (137-145) mmol/L Potassium (3.5-5.1) mmol/L Chloride 91 L (98-107) mmol/L Carbon Dioxide 34 H (22-30) mmol/L Glucose 111 H (74-99) mg/dL POC Glucose (mg/dL) 200 H 131 H (70-110) mg/dL Calcium 8.3 L (8.4-10.2) mg/dL 12/08/21 Range/Units 06:38 WBC 13.3 H (3.8-10.6) k/uL Hgb 12.7 L (13.0-17.5) gm/dL MCHC 30.6 L (31.0-37.0) g/dL Plt Count 727 H (150-450) k/uL Sodium (137-145) mmol/L Potassium (3.5-5.1) mmol/L Chloride (98-107) mmol/L Carbon Dioxide (22-30) mmol/L Glucose (74-99) mg/dL POC Glucose (mg/dL) (70-110) mg/dL Calcium (8.4-10.2) mg/dL Microbiology - Last 24 Hours (Table) 12/05/21 12:25 Acid Fast Bacilli Smear - Final Pleural Fluid Acid Fast Bacilli Culture - Preliminary 12/04/21 15:30 Gram Stain - Final Sputum Sputum Culture - Final Alina albicans 12/05/21 12:25 Gram Stain - Preliminary Pleural Fluid Body Fluid Culture - Preliminary
[2021-12-08 20:23] LABS: Glucose,Whole Blood 321 mg/dL (70-110)
[2021-12-09] MEDS: VANCOMYCIN 1,750 MG in SODIUM CHLORIDE 0.9% 500 ML 500 ML IVPB SCH ×2 (04:47→18:01)
[2021-12-09 06:06] LABS: Glucose,Whole Blood 175 mg/dL (70-110)
[2021-12-09] MEDS: INSULIN ASPART (NovoLOG) 100 UNIT/ML VIAL SQ SCH ×4 (06:13→20:59)
[2021-12-09] MEDS: PANTOPRAZOLE 40 MG TABLET PO SCH (06:13)
[2021-12-09] MEDS: IPRATROPIUM 0.5 MG/2.5 ML NEBU INHALATION SCH ×4 (07:30→21:17)
[2021-12-09] MEDS: SYMBICORT 80-4.5 MCG INHALER INHALATION SCH ×2 (07:31→21:17)
--- NOTE | 2021-12-09 07:50 | P.PN ---
Subjective Progress Note Date: 12/09/21 Principal diagnosis: Loculated parapneumonic right-sided pleural effusion/possible empyema involving the right lung. Recent history of right lower lobe pneumonia, history of COPD, previous heavy tobacco dependence with recent cessation, obstructive sleep apnea without home CPAP use, type 2 diabetes, GERD POD#4 placement of right sided pigtail catheter by interventional radiology The patient was seen and examined this morning sitting up in bed in no acute distress eating breakfast. Does continue to complain of right-sided back pain although better than yesterday, states breathing continues to get better. Remains in sinus rhythm and hemodynamically stable. Remains on room air with oxygen saturation 96% this morning. Able to achieve 0942-2323 mL on incentive spirometry. Right sided pigtail catheter remains, 20 mL drained in the last 24 hours, no lytics instilled yesterday. CT of the chest was obtained and the pigtail catheter radiodense marker appeared to be pulled into the posterior chest wall soft tissue with leaking of fluid into the soft tissue. Continues on IV vancomycin and cefepime per infectious disease, still awaiting final cultures. No other new concerns. Objective - Vital Signs Vital signs: Vital Signs Temp 98 F 12/09/21 04:00 Pulse 86 12/09/21 07:43 Resp 20 12/09/21 04:00 BP 135/73 12/09/21 04:00 Pulse Ox 96 12/09/21 07:34 FiO2 Intake & Output 12/08/21 12/09/21 12/09/21 18:59 06:59 18:59 Intake Total 558 Output Total 4000 1670 Balance -3442 -1670 Intake: Oral 558 Output: Chest Tube Drainage 0 20 Chest Tube Right Upper 0 20 Posterior Chest Urine 4000 1650 Other: Voiding Method Urinal Toilet Urinal # Voids 2 - Exam CONSTITUTIONAL: Appears comfortable, cooperative, no acute distress RESPIRATORY: Lungs sounds diminished on the right. Respirations even, nonlabored. Currently on room air with oxygen saturation 96%. Able to achieve 6984-0769 mL on incentive spirometry. Strong cough. Right sided pigtail pr esent to continuous wall suction, 20 mL drained in the last 24 hours CARDIOVASCULAR: S1, S2 present. Regular rate and rhythm, sinus rhythm on telemetry. Palpable peripheral pulses bilaterally. No edema present. No calf pain or tenderness noted. GASTROINTESTINAL: Abdomen soft, nontender, nondistended. Active bowel sounds present 4 quadrants. Tolerating diet. GENITOURINARY: Continues to void clear, yellow urine INTEGUMENTARY: Skin is warm and dry with evidence of good perfusion. NEUROLOGIC: Cranial nerves II through XII intact MUSKULOSKELETAL: Able to move all extremities, strength equal bilaterally PSYCHIATRIC: Alert and oriented to person place and time, appropriate affect, intact judgment and insight - Allied health notes Allied health notes reviewed: nursing - Labs CBC & Chem 7: 12/08/21 06:38 12/08/21 06:38 Labs: Abnormal Lab Results - Last 24 Hours (Table) 12/08/21 12/08/21 12/08/21 Range/Units 06:38 06:38 11:28 WBC 13.3 H (3.8-10.6) k/uL Hgb 12.7 L (13.0-17.5) gm/dL MCHC 30.6 L (31.0-37.0) g/dL Plt Count 727 H (150-450) k/uL Sodium 133 L (137-145) mmol/L Chloride 91 L (98-107) mmol/L Carbon Dioxide 34 H (22-30) mmol/L Glucose 111 H (74-99) mg/dL POC Glucose (mg/dL) 235 H (70-110) mg/dL Calcium 8.3 L (8.4-10.2) mg/dL 12/08/21 12/08/21 12/09/21 Range/Units 17:13 20:21 06:05 WBC (3.8-10.6) k/uL Hgb (13.0-17.5) gm/dL MCHC (31.0-37.0) g/dL Plt Count (150-450) k/uL Sodium (137-145) mmol/L Chloride (98-107) mmol/L Carbon Dioxide (22-30) mmol/L Glucose (74-99) mg/dL POC Glucose (mg/dL) 218 H 321 H 175 H (70-110) mg/dL Calcium (8.4-10.2) mg/dL Microbiology - Last 24 Hours (Table) 12/05/21 12:25 Anaerobic Culture - Preliminary Pleural Fluid - Imaging and Cardiology CT scan - chest: report reviewed, image reviewed Assessment and Plan Assessment: 1. Loculated parapneumonic right-sided pleural effusion/empyema involving the right lung, status post placement of pigtail catheter by IR 2. Recent history of right lower lobe pneumonia 3. Shortness of breath, chest pain secondary to above 4. COPD 5. Previous heavy tobacco dependence with recent cessation 6. Obstructive sleep apnea without home CPAP use 7. Type 2 diabetes 8. GERD Plan: 1. Will discuss next step with Dr. Stanley regarding replacement of pigtail catheter for continued lytic instillation versus removal of pigtail catheter 2. Continue pigtail to wall suction, may remove suction to ambulate in room/hallway 3. Will continue to monitor daily CXRs 4. Continue antibiotics per ID, monitor for culture finalization 5. Continue to encourage incentive spirometer 6. GI/DVT prophylaxis 7. Medical management of other comorbidities per primary care service 8. More recommendations to follow.
[2021-12-09] MEDS: CEFEPIME 2 GM in SODIUM CHLORIDE 0.9% 100 ML IVPB SCH ×2 (09:01→18:00)
[2021-12-09] MEDS: ENOXAPARIN 40 MG/0.4 ML SYRINGE SQ SCH (09:02)
[2021-12-09] MEDS: FENOFIBRATE 160 MG TAB PO SCH (09:02)
[2021-12-09] MEDS: INSULIN DETEMIR (LEVEMIR) 100 UNIT/ML SYR SQ SCH (09:02)
[2021-12-09] MEDS: ACETAMINOPHEN TAB 325 MG TAB PO PRN (09:02)
[2021-12-09] MEDS: METOPROLOL TARTRATE 25 MG TAB PO SCH ×2 (09:02→20:59)
[2021-12-09] MEDS: ATORVASTATIN 40 MG TAB PO SCH (09:02)
[2021-12-09] MEDS: FUROSEMIDE 40 MG TAB PO SCH (09:02)
[2021-12-09] MEDS: COLCHICINE 0.6 MG EACH PO SCH (09:02)
[2021-12-09 09:08] LABS: HCT 39.5 % (39.0-53.0); HGB 12.3 gm/dL (13.0-17.5); Hypochromasia Slight; MCH 27.6 pg (25.0-35.0); MCV 88.8 fL (80.0-100.0); Platelet Count 663 k/uL (150-450); RBC 4.45 m/uL (4.30-5.90); RDW 12.6 % (11.5-15.5); WBC 12.8 k/uL (3.8-10.6)
[2021-12-09 09:24] LABS: African American GFR (CKD) >90 (>60 ml/min/1.73 sqM); Non-African American GFR(CKD) >90 (>60 ml/min/1.73 sqM)
[2021-12-09 11:54] LABS: Glucose,Whole Blood 229 mg/dL (70-110)
[2021-12-09] MEDS: HYDROmorphone 1 MG/ML 1 ML SYRINGE IVP PRN ×2 (12:21→20:59)
--- NOTE | 2021-12-09 13:25 | P.PN ---
Subjective Progress Note Date: 12/09/21 Principal diagnosis: Right sided empyema Patient was seen today on 12/05/2021, patient had a right sided pigtail catheter placement by interventional radiology, and gross pus is being drained from the right sided empyema. Patient is already being seen by infectious disease, and h diamond will be seen by thoracic surgery for possible alteplase infusion in the right pleural space. Clinically the patient is feeling much better. Breathing a lot easier. Cultures are pending. WBC count today is 10.6 hemoglobin is 13.8 electrolytes are normal renal profile is normal Patient was reevaluated today on 12/06/2021, doing better, breathing easier, no fever no chills, patient is postoperative day #1, status post right sided pigtail catheter placement by interventional radiology, patient had about 1350 ML of purulent drainage from the right sided empyema patient had lytic instillation/alteplase instillations in his right pleural cavity and was able to drain 850 ML. Patient is clinically better, he is still on broad-spectrum antibiotics, cultures are negative so far. Patient is yet to be seen by infectious disease on consultation for potential long-term IV antibiotics treatment Patient is seen today 12/07/2021 in follow-up on the selective care unit. He is currently sitting up at the bedside. He is alert in no acute distress. He is maintaining good O2 saturations in the mid 90s on room air. He's been afebrile. Hemodynamically stable. Chest x-ray reveals similar mildly decreased right pleural effusion. Atelectasis and airspace disease in the right mid to lower lung mildly decreased. Pigtail catheter remains in place. He needs to drain cloudy fluid. Received alteplase and dornase infusion again today per CT services. Pleural fluid cultures are still pending. Sodium 133. Potassium 5.3. Chloride 95. Bicarb 30. BUN 11. Creatinine 0.78. Glucose 216. Va ncomycin trough 20.4. He is continued on vancomycin and cefepime currently. Remains on Symbicort and albuterol. Reevaluated today on 12/08/2021, patient continues to have pigtail catheter in place, continues to have purulent drainage, cultures remain negative. Patient remains on vancomycin and cefepime as per infectious disease on the case. WBC count of 13.3, no thrombolytic instillation done today. Patient is scheduled to have a repeat CT of the chest without contrast today and decision will be made whether more Lasix to be instilled in the right pleural space. Reevaluated today on 12/09/2021, patient seems to be doing well except he is complaining of pain at the pigtail catheter insertion site. No cough no wheezing no shortness of breath. He remains on room air, O2 sats is 96%. CT of the chest yesterday showed significant improvement in his empyema, still receiving vancomycin and cefepime as per infectious disease on the case. Cultures have been negative so far. Patient will likely have his pigtail catheter removed today, and I believe the patient could be considered to be discharged home if cleared by infectious disease, and decision on antibiotics will be made by infectious disease. Objective - Vital Signs Vital signs: Vital Signs Temp 98.2 F 12/09/21 08:00 Pulse 83 12/09/21 08:00 Resp 20 12/09/21 08:00 BP 178/83 12/09/21 08:00 Pulse Ox 95 12/09/21 08:00 FiO2 Intake & Output 12/08/21 12/09/21 12/09/21 18:59 06:59 18:59 Intake Total 558 500 Output Total 4000 1670 0 Balance -3442 -1670 500 Intake: Oral 558 500 Output: Chest Tube Drainage 0 20 0 Chest Tube Right Upper 0 20 0 Posterior Chest Urine 4000 1650 Other: Voiding Method Urinal Toilet Toilet Urinal Urinal # Voids 2 - Exam Physical Exam: Revealed 50-year-old white male in no distress on room air. Head: Atraumatic, normocephalic. HEENT:[Neck is supple.] [No neck masses.] [No thyromegaly.] [No JVD.] Chest: [Diminished breath sounds and dullness at the right base, pigtail catheter connected to Pleur-evac is noted, hardly any drainage noted. Cardiac Exam: [Normal S1 and S2, no S3 gallop, no murmur.] Abdomen: [Soft, nontender, no megaly, no rebound, no guarding, normal bowel sounds.] Extremities: [No clubbing, no edema, no cyanosis.] Neurological Exam: [No focal neurologic deficit.] Alert oriented 3 focal deficits. Psychiatric: Normal mood, affect and normal mental status examination. Skin: No rashes. - Labs CBC & Chem 7: 12/09/21 07:13 12/09/21 07:13 Labs: Abnormal Lab Results - Last 24 Hours (Table) 12/08/21 12/08/21 12/09/21 Range/Units 17:13 20:21 06:05 WBC (3.8-10.6) k/uL Hgb (13.0-17.5) gm/dL Plt Count (150-450) k/uL POC Glucose (mg/dL) 218 H 321 H 175 H (70-110) mg/dL 12/09/21 12/09/21 Range/Units 07:13 11:46 WBC 12.8 H (3.8-10.6) k/uL Hgb 12.3 L (13.0-17.5) gm/dL Plt Count 663 H (150-450) k/uL POC Glucose (mg/dL) 229 H (70-110) mg/dL Microbiology - Last 24 Hours (Table) 12/05/21 12:25 Gram Stain - Final Pleural Fluid Body Fluid Culture - Final Alpha Hemolytic Streptococcus 12/05/21 12:25 Anaerobic Culture - Preliminary Pleural Fluid Assessment and Plan Assessment: Impression: Acute right sided empyema, status post pigtail catheter placement by interventional radiology, postoperative day #4 Status post installation of alteplase to help drain loculated pleural effusion patient had a total of 3 instillations of thrombolytics in right pleural space Recent right lower lobe pneumonia treated on outpatient basis Type 2 diabetes. COPD, maintained on Trelegy Ellipta on outpatient basis Obstructive sleep apnea syndrome not compliant with CPAP. Recommendation: Discontinue pigtail catheter. Continue antibiotics cefepime/vancomycin , infectious disease to decide on antibiotics to be given at home. Continue bronchodilators. Continue incentive spirometry Reviewed the results of the CT of the chest, and discuss with thoracic surgery we both agree that the patient could have the pigtail catheter removed and to treat medically We will continue to follow Time with Patient: Less than 30
--- NOTE | 2021-12-09 15:04 | P.PN ---
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 Patient was transferred from [facility] secondary to loculated right-sided pleural effusion. Patient has a history of pneumonia and was treated last month with antibiotics. Patient had a echocardiogram completed at [facility] which revealed normal LV function. Patient is sitting up in the chair this morning. He denies chest pain or pressure. Denies SOB. 12/06/2021 Patient examined this morning. He is sitting up in the chair. He denies chest pain or pressure. Denies SOB. He is s/p pigtail catheter insertion with lytic instillation draining yellow purulent drainage. He complains of pain at catheter insertion site 11/08. 12/07/2021 Patient examined this morning at the bedside. Patient denies chest pain or pressure. Denies SOB. Reports pain at pigtail catheter site. Telemetry reveals sinus mechanism. 12/08/2021 Patient examined this morning the bedside. Patient denies chest pain or pressure. He denies shortness of breath. Patient continues to report pain at pigtail catheter site. Patient remains in sinus mechanism per telemetry. 12/09 Patient seen and examined. Patient denies any further chest pain or pressure. Patient had pigtail catheter removed. Admits to some pain around the site however improving. Denies any current shortness breath. PHYSICAL EXAM: VITAL SIGNS: Reviewed. GENERAL: Well-developed in no acute distress. NECK: Supple. No JVD or thyromegaly LUNGS: Respirations even and unlabored. Lungs diminished on the right side. HEART: Regular rate and rhythm. S1 and S2 heard. EXTREMITIES: Normal range of motion. No clubbing or cyanosis. Peripheral pulses intact. Trace lower extremity edema ASSESSMENT: Pericarditis Recent pneumonia/pneumonitis Loculated right-sided pleural effusion Isolated episode of atrial fibrillation, per cardiology documentation 12/04/2021 Diabetes COPD Former nicotine dependence PLAN: Continue current cardiac medications Continue with current supportive care. No further recommendations from cardiology standpoint. Please call with any questions. Objective - Vital Signs Vital signs: Vital Signs Temp 98.2 F 12/09/21 08:00 Pulse 83 12/09/21 08:00 Resp 20 12/09/21 08:00 BP 178/83 12/09/21 08:00 Pulse Ox 95 12/09/21 08:00 FiO2 Intake & Output 12/08/21 12/09/21 12/09/21 18:59 06:59 18:59 Intake Total 558 500 Output Total 4000 1670 0 Balance -3442 -1670 500 Intake: Oral 558 500 Output: Chest Tube Drainage 0 20 0 Chest Tube Right Upper 0 20 0 Posterior Chest Urine 4000 1650 Other: Voiding Method Urinal Toilet Toilet Urinal Urinal # Voids 2 - Labs CBC & Chem 7: 12/09/21 07:13 12/09/21 07:13 Labs: Abnormal Lab Results - Last 24 Hours (Table) 12/08/21 12/08/21 12/09/21 Range/Units 17:13 20:21 06:05 WBC (3.8-10.6) k/uL Hgb (13.0-17.5) gm/dL Plt Count (150-450) k/uL POC Glucose (mg/dL) 218 H 321 H 175 H (70-110) mg/dL 12/09/21 12/09/21 Range/Units 07:13 11:46 WBC 12.8 H (3.8-10.6) k/uL Hgb 12.3 L (13.0-17.5) gm/dL Plt Count 663 H (150-450) k/uL POC Glucose (mg/dL) 229 H (70-110) mg/dL Microbiology - Last 24 Hours (Table) 12/05/21 12:25 Gram Stain - Final Pleural Fluid Body Fluid Culture - Final Alpha Hemolytic Streptococcus 12/05/21 12:25 Anaerobic Culture - Preliminary Pleural Fluid
[2021-12-09 16:56] LABS: Glucose,Whole Blood 219 mg/dL (70-110)
--- NOTE | 2021-12-09 17:24 | US ---
EXAMINATION TYPE: US venous doppler duplex UE LT DATE OF EXAM: 12/09/2021 COMPARISON: NONE CLINICAL HISTORY: Lt arm swelling. left arm pain and edema. IV left antecubital fossa, placement 2 da ys ago SIDE PERFORMED: Left Left Arm: no evidence of DVT as visualized. limitations due to IV and large amount of tape. superfici al thrombus noted within left cephalic vein IMPRESSION: No evidence of deep vein thrombosis in the left arm. There is cephalic vein thrombosis which is superficial vein.
[2021-12-09] MEDS: HYDROcodone/APAP 5-325MG 1 EACH TAB PO PRN (18:45)
[2021-12-09 20:20] LABS: Glucose,Whole Blood 219 mg/dL (70-110)
--- NOTE | 2021-12-10 00:09 | P.PN ---
Subjective Progress Note Date: 12/09/21 Principal diagnosis: Empyema Patient is a 50-year male presented to hospital with right-sided chest pain did have a cough and purulent sputum patient be diagnosed with right-sided empyema in this patient who is status post chest tube placement , the patient did have a repeat CT of the chest on 12/08/2021 with evidence of possible displacement of the pigtail catheter and a repeat chest tube placement by the IR completed on 12/08/2021, the patient just was discontinued on 12/09/2021 On today's evaluation that is 12/09/2021, The patient continues to be afebrile, the patient is breathing comfortably on room air, the patient chest pain has decreased intensity, the patient denies any worsening cough or sputum production no nausea no vomiting no abdominal pain and no diarrhea Objective - Vital Signs Vital signs: Vital Signs Temp 98.6 F 12/09/21 20:45 Pulse 82 12/09/21 20:45 Resp 18 12/09/21 20:45 BP 161/88 12/09/21 20:45 Pulse Ox 97 12/09/21 20:45 FiO2 Intake & Output 12/09/21 12/09/21 12/10/21 06:59 18:59 06:59 Intake Total 978 Output Total 1670 3550 Balance -1670 -1612 Intake: Oral 978 Output: Chest Tube Drainage 20 0 Chest Tube Right Upper 20 0 Posterior Chest Urine 1650 3550 Other: Voiding Method Toilet Toilet Toilet Urinal Urinal Urinal - Exam GENERAL DESCRIPTION: Middle-aged male lying in bed, no distress. No tachypnea or accessory muscle of respiration use. LUNGS: Unlabored breathing. Decreased breath sound the base, chest tube with a purulent drainage HEART: S1, S2, regular rate and rhythm. No loud murmur ABDOMEN: Soft, no tenderness , guarding or rigidity, no organomegaly EXTREMITIES: No edema of feet. - Labs CBC & Chem 7: 12/09/21 07:13 12/09/21 07:13 Labs: Abnormal Lab Results - Last 24 Hours (Table) 12/09/21 12/09/21 12/09/21 Range/Units 06:05 07:13 11:46 WBC 12.8 H (3.8-10.6) k/uL Hgb 12.3 L (13.0-17.5) gm/dL Plt Count 663 H (150-450) k/uL POC Glucose (mg/dL) 175 H 229 H (70-110) mg/dL 12/09/21 12/09/21 Range/Units 16:30 20:19 WBC (3.8-10.6) k/uL Hgb (13.0-17.5) gm/dL Plt Count (150-450) k/uL POC Glucose (mg/dL) 219 H 219 H (70-110) mg/dL Microbiology - Last 24 Hours (Table) 12/05/21 12:25 Gram Stain - Final Pleural Fluid Body Fluid Culture - Final Alpha Hemolytic Streptococcus Assessment and Plan (1) Pleural empyema Current Visit: Yes Status: Acute Code(s): J86.9 - PYOTHORAX WITHOUT FISTULA SNOMED Code(s): 60797585 Plan: 1patient present to hospital with sepsis secondary to right-sided empyema in this patient who is status post chest tube placement on 12/05/2021 with the cultures currently pending. 2The patient did have some clinical improvement, pleural fluid culture can be positive for alphahemolytic streptococcus antibiotics switched over to cefazolin in view of extensive infection may benefit from a short course of IV antibiotic on discharge we will wait for the repeat chest x-ray tomorrow before making a plan for patient antibiotics Time with Patient: Less than 30
[2021-12-10] MEDS: HYDROcodone/APAP 5-325MG 1 EACH TAB PO PRN ×2 (01:52→12:15)
[2021-12-10] MEDS ORDERED: VANCOMYCIN TROUGH DUE 1 EACH MISC MISCELLANE ONE (03:00)
[2021-12-10] MEDS: HYDROmorphone 1 MG/ML 1 ML SYRINGE IVP PRN ×2 (03:22→20:37)
[2021-12-10] MEDS: FUROSEMIDE 10 MG/ML 4 ML VIAL IV SCH (03:27)
[2021-12-10 04:37] LABS: African American GFR (CKD) >90 (>60 ml/min/1.73 sqM); Non-African American GFR(CKD) >90 (>60 ml/min/1.73 sqM)
[2021-12-10 06:02] LABS: Glucose,Whole Blood 185 mg/dL (70-110)
[2021-12-10] MEDS: INSULIN ASPART (NovoLOG) 100 UNIT/ML VIAL SQ SCH ×4 (06:09→20:35)
[2021-12-10] MEDS: PANTOPRAZOLE 40 MG TABLET PO SCH (06:09)
--- NOTE | 2021-12-10 07:12 | XR ---
EXAMINATION TYPE: XR chest 2V DATE OF EXAM: 12/10/2021 COMPARISON: Chest CT and chest x-ray 2 days ago HISTORY: Empyema. TECHNIQUE: Frontal and lateral views of the chest are obtained. FINDINGS: Patient slightly rotated to the right. Stable right basilar pleural fluid collection extend ing laterally and moderate right basilar linear scarring and/or atelectasis. Left lung is clear. The cardiac silhouette size is stable and within normal limits. The osseous structures are intact. IMPRESSION: Stable small right pleural fluid collection and moderate right basilar linear scarring a nd/or atelectasis. Left lung remains clear. No significant change from most recent studies.
[2021-12-10] MEDS: IPRATROPIUM 0.5 MG/2.5 ML NEBU INHALATION SCH ×4 (07:23→20:15)
[2021-12-10] MEDS: SYMBICORT 80-4.5 MCG INHALER INHALATION SCH ×2 (07:23→20:15)
[2021-12-10] MEDS: ENOXAPARIN 40 MG/0.4 ML SYRINGE SQ SCH (08:01)
[2021-12-10] MEDS: METOPROLOL TARTRATE 25 MG TAB PO SCH ×2 (08:02→20:35)
[2021-12-10] MEDS: FUROSEMIDE 40 MG TAB PO SCH (08:02)
[2021-12-10] MEDS: ATORVASTATIN 40 MG TAB PO SCH (08:02)
[2021-12-10] MEDS: FENOFIBRATE 160 MG TAB PO SCH (08:02)
[2021-12-10] MEDS: INSULIN DETEMIR (LEVEMIR) 100 UNIT/ML SYR SQ SCH (08:02)
[2021-12-10] MEDS: COLCHICINE 0.6 MG EACH PO SCH (08:02)
--- NOTE | 2021-12-10 08:12 | P.PN ---
Subjective Progress Note Date: 12/10/21 Principal diagnosis: Loculated parapneumonic right-sided pleural effusion/possible empyema involving the right lung. Recent history of right lower lobe pneumonia, history of COPD, previous heavy tobacco dependence with recent cessation, obstructive sleep apnea without home CPAP use, type 2 diabetes, GERD POD#5 placement of right sided pigtail catheter by interventional radiology The patient was seen and examined this morning laying in bed in no acute distress. Does continue to complain of right-sided back pain although better than yesterday, states breathing continues to get better. Remains in sinus rhythm and hemodynamically stable. Remains on room air with oxygen saturation 96% this morning. Able to achieve 8704-0084 mL on incentive spirometry. Right sided pigtail catheter discontinued yesterday without incident. Follow-up chest x-ray reviewed. Pleural cultures finalized as alphahemolytic strep, antibiotics changed to IV Ancef per infectious disease. No other new concerns. Objective - Vital Signs Vital signs: Vital Signs Temp 98.6 F 12/09/21 20:45 Pulse 83 12/10/21 07:39 Resp 18 12/10/21 02:10 BP 159/94 12/10/21 02:10 Pulse Ox 95 12/10/21 07:26 FiO2 Intake & Output 12/09/21 12/10/21 12/10/21 18:59 06:59 18:59 Intake Total 978 Output Total 3550 900 Balance -2572 -900 Intake: Oral 978 Output: Chest Tube Drainage 0 Chest Tube Right Upper 0 Posterior Chest Urine 3550 900 Other: Voiding Method Toilet Toilet Urinal Urinal - Exam CONSTITUTIONAL: Appears comfortable, cooperative, no acute distress RESPIRATORY: Lungs sounds diminished on the right. Respirations even, nonlabored. Currently on room air with oxygen saturation 96%. Able to achieve 2354-7980 mL on incentive spirometry. Strong cough. CARDIOVASCULAR: S1, S2 present. Regular rate and rhythm, sinus rhythm on telemetry. Palpable peripheral pulses bilaterally. No edema present. No calf pain or tenderness noted. GASTROINTESTINAL: Abdomen soft, nontender, nondistended. Active bowel sounds present 4 quadrants. Tolerating diet. GENITOURINARY: Continues to void clear, yellow urine INTEGUMENTARY: Skin is warm and dry with evidence of good perfusion. NEUROLOGIC: Cranial nerves II through XII intact MUSKULOSKELETAL: Able to move all extremities, strength equal bilaterally PSYCHIATRIC: Alert and oriented to person place and time, appropriate affect, intact judgment and insight - Allied health notes Allied health notes reviewed: nursing - Labs CBC & Chem 7: 12/09/21 07:13 12/10/21 03:42 Labs: Abnormal Lab Results - Last 24 Hours (Table) 12/09/21 12/09/21 12/09/21 Range/Units 07:13 11:46 16:30 WBC 12.8 H (3.8-10.6) k/uL Hgb 12.3 L (13.0-17.5) gm/dL Plt Count 663 H (150-450) k/uL POC Glucose (mg/dL) 229 H 219 H (70-110) mg/dL 12/09/21 12/10/21 Range/Units 20:19 06:01 WBC (3.8-10.6) k/uL Hgb (13.0-17.5) gm/dL Plt Count (150-450) k/uL POC Glucose (mg/dL) 219 H 185 H (70-110) mg/dL Microbiology - Last 24 Hours (Table) 12/05/21 12:25 Gram Stain - Final Pleural Fluid Body Fluid Culture - Final Alpha Hemolytic Streptococcus - Imaging and Cardiology Chest x-ray: report reviewed, image reviewed Assessment and Plan Assessment: 1. Loculated parapneumonic right-sided pleural effusion/empyema involving the right lung, status post placement of pigtail catheter by IR, culture finalized as ursula hemolytic strep 2. Recent history of right lower lobe pneumonia 3. Shortness of breath, chest pain secondary to above 4. COPD 5. Previous heavy tobacco dependence with recent cessation 6. Obstructive sleep apnea without home CPAP use 7. Type 2 diabetes 8. GERD Plan: 1. No further surgical intervention warranted 2. Continue antibiotics per ID 3. Continue to encourage incentive spirometer 4. GI/DVT prophylaxis 5. Pain control per primary care 6. Medical management of other comorbidities per primary care service 7. Will continue to see again on an as-needed basis. Please call us with any further questions
[2021-12-10 12:04] LABS: Glucose,Whole Blood 219 mg/dL (70-110)
--- NOTE | 2021-12-10 13:09 | P.PN ---
Subjective Progress Note Date: 12/10/21 Principal diagnosis: Right sided empyema Patient was seen today on 12/05/2021, patient had a right sided pigtail catheter placement by interventional radiology, and gross pus is being drained from the right sided empyema. Patient is already being seen by infectious disease, and h diamond will be seen by thoracic surgery for possible alteplase infusion in the right pleural space. Clinically the patient is feeling much better. Breathing a lot easier. Cultures are pending. WBC count today is 10.6 hemoglobin is 13.8 electrolytes are normal renal profile is normal Patient was reevaluated today on 12/06/2021, doing better, breathing easier, no fever no chills, patient is postoperative day #1, status post right sided pigtail catheter placement by interventional radiology, patient had about 1350 ML of purulent drainage from the right sided empyema patient had lytic instillation/alteplase instillations in his right pleural cavity and was able to drain 850 ML. Patient is clinically better, he is still on broad-spectrum antibiotics, cultures are negative so far. Patient is yet to be seen by infectious disease on consultation for potential long-term IV antibiotics treatment Patient is seen today 12/07/2021 in follow-up on the selective care unit. He is currently sitting up at the bedside. He is alert in no acute distress. He is maintaining good O2 saturations in the mid 90s on room air. He's been afebrile. Hemodynamically stable. Chest x-ray reveals similar mildly decreased right pleural effusion. Atelectasis and airspace disease in the right mid to lower lung mildly decreased. Pigtail catheter remains in place. He needs to drain cloudy fluid. Received alteplase and dornase infusion again today per CT services. Pleural fluid cultures are still pending. Sodium 133. Potassium 5.3. Chloride 95. Bicarb 30. BUN 11. Creatinine 0.78. Glucose 216. Va ncomycin trough 20.4. He is continued on vancomycin and cefepime currently. Remains on Symbicort and albuterol. Reevaluated today on 12/08/2021, patient continues to have pigtail catheter in place, continues to have purulent drainage, cultures remain negative. Patient remains on vancomycin and cefepime as per infectious disease on the case. WBC count of 13.3, no thrombolytic instillation done today. Patient is scheduled to have a repeat CT of the chest without contrast today and decision will be made whether more Lasix to be instilled in the right pleural space. Reevaluated today on 12/09/2021, patient seems to be doing well except he is complaining of pain at the pigtail catheter insertion site. No cough no wheezing no shortness of breath. He remains on room air, O2 sats is 96%. CT of the chest yesterday showed significant improvement in his empyema, still receiving vancomycin and cefepime as per infectious disease on the case. Cultures have been negative so far. Patient will likely have his pigtail catheter removed today, and I believe the patient could be considered to be discharged home if cleared by infectious disease, and decision on antibiotics will be made by infectious disease. Reevaluated today on 12/10/2021, patient is doing well, his pigtail catheter was removed yesterday, remains on antibiotics, cultures are now showing out for hemolytic strep, patient will be seen by infectious disease today, and decide on antibiotics, route, and length of treatment. In the meantime the patient doing well clinically. Feeling much better since the catheter was removed. Objective - Vital Signs Vital signs: Vital Signs Temp 98.6 F 12/09/21 20:45 Pulse 80 12/10/21 08:00 Resp 18 12/10/21 08:00 BP 195/95 12/10/21 08:00 Pulse Ox 93 L 12/10/21 08:00 FiO2 Intake & Output 12/09/21 12/10/21 12/10/21 18:59 06:59 18:59 Intake Total 978 500 Output Total 3550 900 1750 Balance -2572 900 -1250 Intake: Oral 978 500 Output: Chest Tube Drainage 0 Chest Tube Right Upper 0 Posterior Chest Urine 3550 900 1750 Other: Voiding Method Toilet Toilet Toilet Urinal Urinal Urinal - Exam Physical Exam: Revealed 50-year-old white male in no distress on room air. Head: Atraumatic, normocephalic. HEENT:[Neck is supple.] [No neck masses.] [No thyromegaly.] [No JVD.] Chest: [Diminished breath sounds and dullness at the right base, pigtail catheter has been removed Cardiac Exam: [Normal S1 and S2, no S3 gallop, no murmur.] Abdomen: [Soft, nontender, no megaly, no rebound, no guarding, normal bowel sounds.] Extremities: [No clubbing, no edema, no cyanosis.] Neurological Exam: [No focal neurologic deficit.] Alert oriented 3 focal deficits. Psychiatric: Normal mood, affect and normal mental status examination. Skin: No rashes. - Labs CBC & Chem 7: 12/09/21 07:13 12/10/21 03:42 Labs: Abnormal Lab Results - Last 24 Hours (Table) 12/09/21 12/09/21 12/10/21 Range/Units 16:30 20:19 06:01 POC Glucose (mg/dL) 219 H 219 H 185 H (70-110) mg/dL 12/10/21 Range/Units 11:41 POC Glucose (mg/dL) 219 H (70-110) mg/dL Microbiology - Last 24 Hours (Table) 12/05/21 12:25 Anaerobic Culture - Final Pleural Fluid 12/05/21 12:25 Gram Stain - Final Pleural Fluid Body Fluid Culture - Final Alpha Hemolytic Streptococcus Assessment and Plan Assessment: Impression: Acute right sided empyema, status post pigtail catheter placement by interventional radiology, postoperative day #5 Status post installation of alteplase to help drain loculated pleural effusion patient had a total of 3 instillations of thrombolytics in right pleural space Recent right lower lobe pneumonia treated on outpatient basis Type 2 diabetes. COPD, maintained on Trelegy Ellipta on outpatient basis Obstructive sleep apnea syndrome not compliant with CPAP. Recommendation: Antibiotics to be addressed by infectious disease on the case, We will clear the patient for discharge if cleared by infectious disease Continue bronchodilators. Continue incentive spirometry follow-up on outpatient basis. In 2 weeks Time with Patient: Less than 30
[2021-12-10 16:30] LABS: Glucose,Whole Blood 146 mg/dL (70-110)
--- NOTE | 2021-12-10 19:31 | P.PN ---
Subjective Progress Note Date: 12/09/21 This is a 50-year-old male who was recently admitted at [facility] although sent here for further evaluation from cardiothoracic surgery for pericarditis and is being closely monitored. Multiple medical consultations placed including infectious disease, cardiology, pulmonary and cardiothoracic surgery. Patient was found to have flulike symptoms and right side when pain and found to have loculated pleural effusions on the right from CT with a peripneumonic effusion. Patient was placed on IV antibiotics with infectious disease consultation. Patient started having worsening chest pain and shortness of breath and went back to the hospital and sent over to [facility] for further evaluation. Initially patient's white count was elevated and sodium was slightly low and patient's oxygen saturations were above 90% on room air. Patient does have a past medical history of COPD, diabetes, GERD, sleep apnea but does not wear a CPAP, former smoker. Patient follows with Dr. Wellington in the outpatient setting. Sputum culture was obtained and pending. 12/05/2021 Patient is seen and evaluated this morning and follow-up and has been evaluated by cardiothoracic surgery recommending interventional radiology consultation for possible pigtail placement. Patient is also being followed closely by infectious disease and maintained on IV antibiotics and will continue. Awaiting pigtail catheter placement for right side empyema. Continue with pain management. Patient is afebrile and denies chest pain. Encouraged incentive spirometer use at least 10 times per hour while awake. Recommend repeat labs and possible chest xray in the am. 12/06/2021 Patient is evaluated today with multiple medical consultations following. Patient is postop chest tube placement of the right for loculated right empyema with continued purulent drainage noted. Patient is continued on IV antibiotics with ID following closely and patient will likely require a PICC line for outpatient antibiotics. Case management is following and working on verifying coverage. Awaiting finalized cultures to determine appropriate discharge antibiotics. Patient continues with chest wall pain and does have as needed medications and will also add oral medications to the regimen. Patient with some difficulty in sleeping and will add Restoril as needed. Encouraged continued incentive spirometer least 10 times every hour while awake. CT surgery following continuing on thrombolytics to ensure patency of the drainage tube. Recommend follow-up chest x-ray daily. Labs reviewed and WBC is trending down and will continue to monitor closely. Patient is afebrile and denies shortness of breath. Currently maintaining saturations above 95% on room air. Patient denies nausea or vomiting and is tolerating diet. Encouraged increased activity as tolerated. 12/07/2021 Patient seen and evaluated in follow-up post thrombolytics to the chest tube and having immense pain rating 10 out of 10 and is diaphoretic and feels somewhat short of breath. Patient is on room air and awaiting the nurse to arrive with pain medications. Chest x-ray this morning shows similar mildly decreased right pleural effusion with atelectasis and airspace disease in the right mid to lower lung mildly decreased. Patient is afebrile and denying chest pain although is having chest wall pain at the chest tube site. Sodium is 133 with a potassium of 5.3 and creatinine is 0.78. Blood sugars are being monitored and being maint ained on sliding scale along with long-acting. Patient is receiving IV pain medications and have added oral pain medications for breakthrough pain. Recommend continue with nebulized treatments along with inhalers and patient is also continued on IV cefepime and vancomycin with ID following closely awaiting for cultures. Sputum culture showing Alina albicans. Patient denies nausea or vomiting and is tolerating diet. 12/08/2021 Patient is seen today and is to receive a repeat CT of the chest to assess the loculation and degree of abscess and if improving. Patient continues with a pigtail catheter of the right and dressing on the right back is dry and intact with no surrounding redness of swelling noted. Patient is continued on IV abx and pain management with multiple medical consultations following. Patient reports he feels somewhat improved especially better than yesterday. Patient is not receiving lytic therapy today. Awaiting CT report and cultures continued to be pending at this time. ID following closely as well as case management and verifying outpatient IV abx coverage. Patient is afebrile and denies chest pain or palpitations. Patient is tolerating diet with no reports of nausea or vomiting noted. Review of systems: Constitutional: No reports of fatigue, fever, or chills Cardiovascular: No reports of chest pain or palpitations, reports somewhat improved chest wall pain Respiratory: No reports of worsening shortness of breath or cough GI: No reports of nausea, vomiting, or diarrhea : No reports of dysuria or retention Neurovascular: No reports of weakness or numbness All medications have been reviewed PHYSICAL EXAMINATION: GENERAL: The patient is alert and oriented x3, not in any acute distress. Well developed, well nourished. HEENT: Pupils are round and equally reacting to light. EOMI. No scleral icterus. No conjunctival pallor. Normocephalic, atraumatic. No pharyngeal erythema. No thyromegaly. CARDIOVASCULAR: S1 and S2 present. No murmurs, rubs, or gallops. PULMONARY: Bilateral diminished breath sounds with some scattered rhonchi noted. Right chest tube noted with bloody drainage in the container ABDOMEN: Soft, nontender, nondistended, normoactive bowel sounds. No palpable organomegaly. MUSCULOSKELETAL: No joint swelling or deformity. EXTREMITIES: No cyanosis, clubbing, or pedal edema. NEUROLOGICAL: Gross neurological examination did not reveal any focal deficits. SKIN: No rashes. Assessment: Right side chest pain with loculated pleural effusion Empyema of the right lung status post chest tube placement Peripneumonic effusion secondary to pleural effusion with empyema of the right lung Recent right lower lobe pneumonia, was on antibiotics and steroids outpatient Shortness of breath secondary to above Diabetes mellitus type 2 COPD, not in exacerbation History of obstructive sleep apnea although does not wear a CPAP Gastroesophageal reflux disease Former smoker GI prophylaxis DVT prophylaxis: on eliquis Full code Plan: Recommend IV antibiotics with infectious disease following, patient may need a short course of IV antibiotics and will discuss with ID about discharge planning. Cultures finalized showing hemolytic strep and IV abx have been switched to cefazolin. Patient with left arm pain and swelling at the site of the IV and will obtain a venous doppler. Cardiothoracic surgery following and chest tube has been removed due to it being slightly dislodged and leaking into the sub q tissue per CT report. Recommend daily xrays and close monitoring. Pulmonary and cardiology following Recommend resuming home meds and continuing with breathing inhalational treatments Patient continues on oral Lasix along with colchicine per cardiology Recommend repeat labs and follow-up chest x-ray Recommend Accu-Cheks before meals and at bedtime along with sliding scale and long-acting insulin Prognosis is guarded. Possible discharge in the next 48 hours or so. The impression and plan of care has been dictated as a scribe by Roya Chandra, Nurse Practitioner as directed. MD Lima I have performed a history and examination and MDM of this patient, discussed the same with the dictator, and agree with the dictator's assessment and plan as written ,documented as a scribe. Based on total visit time, I have performed more than 50% of the visit. Objective - Vital Signs Vital signs: Vital Signs Temp 98.2 F 12/09/21 08:00 Pulse 83 12/09/21 08:00 Resp 20 12/09/21 08:00 BP 178/83 12/09/21 08:00 Pulse Ox 95 12/09/21 08:00 FiO2 Intake & Output 12/08/21 12/09/21 12/09/21 18:59 06:59 18:59 Intake Total 558 500 Output Total 4000 1670 0 Balance -3442 -1670 500 Intake: Oral 558 500 Output: Chest Tube Drainage 0 20 0 Chest Tube Right Upper 0 20 0 Posterior Chest Urine 4000 1650 Other: Voiding Method Urinal Toilet Toilet Urinal Urinal # Voids 2 - Labs CBC & Chem 7: 12/09/21 07:13 12/10/21 03:42 Labs: Abnormal Lab Results - Last 24 Hours (Table) 12/08/21 12/08/21 12/09/21 Range/Units 17:13 20:21 06:05 WBC (3.8-10.6) k/uL Hgb (13.0-17.5) gm/dL Plt Count (150-450) k/uL POC Glucose (mg/dL) 218 H 321 H 175 H (70-110) mg/dL 12/09/21 12/09/21 Range/Units 07:13 11:46 WBC 12.8 H (3.8-10.6) k/uL Hgb 12.3 L (13.0-17.5) gm/dL Plt Count 663 H (150-450) k/uL POC Glucose (mg/dL) 229 H (70-110) mg/dL Microbiology - Last 24 Hours (Table) 12/05/21 12:25 Gram Stain - Final Pleural Fluid Body Fluid Culture - Final Alpha Hemolytic Streptococcus 12/05/21 12:25 Anaerobic Culture - Preliminary Pleural Fluid
--- NOTE | 2021-12-10 19:38 | P.PN ---
Subjective Progress Note Date: 12/10/21 This is a 50-year-old male who was recently admitted at [facility] although sent here for further evaluation from cardiothoracic surgery for pericarditis and is being closely monitored. Multiple medical consultations placed including infectious disease, cardiology, pulmonary and cardiothoracic surgery. Patient was found to have flulike symptoms and right side when pain and found to have loculated pleural effusions on the right from CT with a peripneumonic effusion. Patient was placed on IV antibiotics with infectious disease consultation. Patient started having worsening chest pain and shortness of breath and went back to the hospital and sent over to [facility] for further evaluation. Initially patient's white count was elevated and sodium was slightly low and patient's oxygen saturations were above 90% on room air. Patient does have a past medical history of COPD, diabetes, GERD, sleep apnea but does not wear a CPAP, former smoker. Patient follows with Dr. Wellington in the outpatient setting. Sputum culture was obtained and pending. 12/05/2021 Patient is seen and evaluated this morning and follow-up and has been evaluated by cardiothoracic surgery recommending interventional radiology consultation for possible pigtail placement. Patient is also being followed closely by infectious disease and maintained on IV antibiotics and will continue. Awaiting pigtail catheter placement for right side empyema. Continue with pain management. Patient is afebrile and denies chest pain. Encouraged incentive spirometer use at least 10 times per hour while awake. Recommend repeat labs and possible chest xray in the am. 12/06/2021 Patient is evaluated today with multiple medical consultations following. Patient is postop chest tube placement of the right for loculated right empyema with continued purulent drainage noted. Patient is continued on IV antibiotics with ID following closely and patient will likely require a PICC line for outpatient antibiotics. Case management is following and working on verifying coverage. Awaiting finalized cultures to determine appropriate discharge antibiotics. Patient continues with chest wall pain and does have as needed medications and will also add oral medications to the regimen. Patient with some difficulty in sleeping and will add Restoril as needed. Encouraged continued incentive spirometer least 10 times every hour while awake. CT surgery following continuing on thrombolytics to ensure patency of the drainage tube. Recommend follow-up chest x-ray daily. Labs reviewed and WBC is trending down and will continue to monitor closely. Patient is afebrile and denies shortness of breath. Currently maintaining saturations above 95% on room air. Patient denies nausea or vomiting and is tolerating diet. Encouraged increased activity as tolerated. 12/07/2021 Patient seen and evaluated in follow-up post thrombolytics to the chest tube and having immense pain rating 10 out of 10 and is diaphoretic and feels somewhat short of breath. Patient is on room air and awaiting the nurse to arrive with pain medications. Chest x-ray this morning shows similar mildly decreased right pleural effusion with atelectasis and airspace disease in the right mid to lower lung mildly decreased. Patient is afebrile and denying chest pain although is having chest wall pain at the chest tube site. Sodium is 133 with a potassium of 5.3 and creatinine is 0.78. Blood sugars are being monitored and being maint ained on sliding scale along with long-acting. Patient is receiving IV pain medications and have added oral pain medications for breakthrough pain. Recommend continue with nebulized treatments along with inhalers and patient is also continued on IV cefepime and vancomycin with ID following closely awaiting for cultures. Sputum culture showing Alina albicans. Patient denies nausea or vomiting and is tolerating diet. 12/08/2021 Patient is seen today and is to receive a repeat CT of the chest to assess the loculation and degree of abscess and if improving. Patient continues with a pigtail catheter of the right and dressing on the right back is dry and intact with no surrounding redness of swelling noted. Patient is continued on IV abx and pain management with multiple medical consultations following. Patient reports he feels somewhat improved especially better than yesterday. Patient is not receiving lytic therapy today. Awaiting CT report and cultures continued to be pending at this time. ID following closely as well as case management and verifying outpatient IV abx coverage. Patient is afebrile and denies chest pain or palpitations. Patient is tolerating diet with no reports of nausea or vomiting noted. 12/10/2021 Patient is seen today and had venous doppler of the left upper extremity to assess for dvt and no dvt evident but there is a superficial thrombus noted and recommend to dc the midline and start new IV. Patient is continued on IV abx and has been transitioned to cefazolin as the cultures are showing hemolytic strep. Will discuss with ID about possible oral abx or if continuing to require IV on discharge. Patient is doing well status post removal of the chest tube of the right with CT surgery and cardiology following as well. Patient is afebrile and denies chest pain or shortness of breath. Blood sugars are well controlled on current regimen. Review of systems: Constitutional: No reports of fatigue, fever, or chills Cardiovascular: No reports of chest pain or palpitations, reports improved chest wall pain Respiratory: No reports of worsening shortness of breath or cough GI: No reports of nausea, vomiting, or diarrhea : No reports of dysuria or retention Neurovascular: No reports of weakness or numbness All medications have been reviewed PHYSICAL EXAMINATION: GENERAL: The patient is alert and oriented x3, not in any acute distress. Well developed, well nourished. HEENT: Pupils are round and equally reacting to light. EOMI. No scleral icterus. No conjunctival pallor. Normocephalic, atraumatic. No pharyngeal erythema. No thyromegaly. CARDIOVASCULAR: S1 and S2 present. No murmurs, rubs, or gallops. PULMONARY: Bilateral diminished breath sounds with some scattered rhonchi noted. ABDOMEN: Soft, nontender, nondistended, normoactive bowel sounds. No palpable organomegaly. MUSCULOSKELETAL: No joint swelling or deformity. EXTREMITIES: No cyanosis, clubbing, or pedal edema. NEUROLOGICAL: Gross neurological examination did not reveal any focal deficits. SKIN: No rashes. Assessment: Right side chest pain with loculated pleural effusion Empyema of the right lung status post chest tube placement Peripneumonic effusion secondary to pleural effusion with empyema of the right lung Recent right lower lobe pneumonia, was on antibiotics and steroids outpatient Shortness of breath secondary to above Diabetes mellitus type 2 COPD, not in exacerbation History of obstructive sleep apnea although does not wear a CPAP Gastroesophageal reflux disease Former smoker GI prophylaxis DVT prophylaxis: on eliquis Full code Plan: Recommend IV antibiotics with infectious disease following, patient may need a short course of IV antibiotics and will discuss with ID about discharge planning. Cultures finalized showing hemolytic strep and IV abx have been switched to cefazolin. Patient with left arm pain and swelling at the site of the IV and will obtain a venous doppler. Cardiothoracic surgery following and chest tube has been removed due to it being slightly dislodged and leaking into the sub q tissue per CT report. Recommend daily xrays and close monitoring. Pulmonary and cardiology following Recommend resuming home meds and continuing with breathing inhalational treatments Patient continues on oral Lasix along with colchicine per cardiology Recommend repeat labs and follow-up chest x-ray Recommend Accu-Cheks before meals and at bedtime along with sliding scale and long-acting insulin Prognosis is guarded. Possible discharge in the next 24-48 hours The impression and plan of care has been dictated as a scribe by Roya Chandra, Nurse Practitioner as directed. MD Lima I have performed a history and examination and MDM of this patient, discussed the same with the dictator, and agree with the dictator's assessment and plan as written ,documented as a scribe. Based on total visit time, I have performed more than 50% of the visit. Objective - Vital Signs Vital signs: Vital Signs Temp 98.1 F 12/10/21 16:00 Pulse 80 12/10/21 16:31 Resp 16 12/10/21 16:00 BP 162/81 12/10/21 16:00 Pulse Ox 98 12/10/21 16:19 FiO2 Intake & Output 12/10/21 12/10/21 12/11/21 06:59 18:59 06:59 Intake Total 680 Output Total 900 1750 Balance -900 -1070 Intake: Oral 680 Output: Urine 900 1750 Other: Voiding Method Toilet Toilet Urinal Urinal - Labs CBC & Chem 7: 12/09/21 07:13 12/10/21 03:42 Labs: Abnormal Lab Results - Last 24 Hours (Table) 12/09/21 12/10/21 12/10/21 Range/Units 20:19 06:01 11:41 POC Glucose (mg/dL) 219 H 185 H 219 H (70-110) mg/dL 12/10/21 Range/Units 16:29 POC Glucose (mg/dL) 146 H (70-110) mg/dL Microbiology - Last 24 Hours (Table) 12/05/21 12:25 Anaerobic Culture - Final Pleural Fluid
[2021-12-10 19:51] LABS: Glucose,Whole Blood 226 mg/dL (70-110)
[2021-12-10] MEDS: ALBUTEROL NEBULIZED 2.5 MG/3 ML INHALATION PRN (20:15)
--- NOTE | 2021-12-10 23:34 | P.PN ---
Subjective Progress Note Date: 12/10/21 Principal diagnosis: Empyema Patient is a 50-year male presented to hospital with right-sided chest pain did have a cough and purulent sputum patient be diagnosed with right-sided empyema in this patient who is status post chest tube placement , the patient did have a repeat CT of the chest on 12/08/2021 with evidence of possible displacement of the pigtail catheter and a repeat chest tube placement by the IR completed on 12/08/2021, the patient just was discontinued on 12/09/2021 On today's evaluation that is 12/10/2021, The patient denies having any fever or any chills, the patient is breathing comfortably on room air, the patient chest pain has decreased intensity, the patient cough is decreased intensity with occasional sputum no abdominal pain no diarrhea Objective - Vital Signs Vital signs: Vital Signs Temp 98.6 F 12/09/21 20:45 Pulse 69 12/10/21 13:32 Resp 18 12/10/21 13:32 BP 164/75 12/10/21 12:00 Pulse Ox 96 12/10/21 12:00 FiO2 Intake & Output 12/09/21 12/10/21 12/10/21 18:59 06:59 18:59 Intake Total 978 500 Output Total 3550 900 1750 Balance -4999 -900 1250 Intake: Oral 978 500 Output: Chest Tube Drainage 0 Chest Tube Right Upper 0 Posterior Chest Urine 3550 900 1750 Other: Voiding Method Toilet Toilet Toilet Urinal Urinal Urinal - Exam GENERAL DESCRIPTION: Middle-aged male lying in bed, no distress. No tachypnea or accessory muscle of respiration use. LUNGS: Unlabored breathing. Decreased breath sound the base, chest tube with a purulent drainage HEART: S1, S2, regular rate and rhythm. No loud murmur ABDOMEN: Soft, no tenderness , guarding or rigidity, no organomegaly EXTREMITIES: No edema of feet. - Labs CBC & Chem 7: 12/09/21 07:13 12/10/21 03:42 Labs: Abnormal Lab Results - Last 24 Hours (Table) 12/09/21 12/09/21 12/10/21 Range/Units 16:30 20:19 06:01 POC Glucose (mg/dL) 219 H 219 H 185 H (70-110) mg/dL 12/10/21 Range/Units 11:41 POC Glucose (mg/dL) 219 H (70-110) mg/dL Microbiology - Last 24 Hours (Table) 12/05/21 12:25 Anaerobic Culture - Final Pleural Fluid 12/05/21 12:25 Gram Stain - Final Pleural Fluid Body Fluid Culture - Final Alpha Hemolytic Streptococcus Assessment and Plan (1) Pleural empyema Current Visit: Yes Status: Acute Code(s): J86.9 - PYOTHORAX WITHOUT FISTULA SNOMED Code(s): 79147267 Plan: 1patient present to hospital with sepsis secondary to right-sided empyema in this patient who is status post chest tube placement on 12/05/2021 with the cultures currently pending. 2The patient did have some clinical improvement, pleural fluid culture can be positive for alphahemolytic streptococcus 3-patient to continue cefazolin 2 g every 8 hours plan is for a two-week course of IV Rocephin 2 g daily for a PICC line will be placed in the morning Time with Patient: Less than 30
[2021-12-11] MEDS: HYDROcodone/APAP 5-325MG 1 EACH TAB PO PRN ×2 (00:38→12:30)
[2021-12-11] MEDS: HYDROmorphone 1 MG/ML 1 ML SYRINGE IVP PRN ×2 (05:01→08:42)
[2021-12-11] MEDS: INSULIN ASPART (NovoLOG) 100 UNIT/ML VIAL SQ SCH ×2 (06:23→12:29)
[2021-12-11 06:24] LABS: Glucose,Whole Blood 120 mg/dL (70-110)
[2021-12-11] MEDS: PANTOPRAZOLE 40 MG TABLET PO SCH (07:04)
[2021-12-11] MEDS: IPRATROPIUM 0.5 MG/2.5 ML NEBU INHALATION SCH ×3 (07:58→15:29)
[2021-12-11] MEDS: SYMBICORT 80-4.5 MCG INHALER INHALATION SCH (07:58)
[2021-12-11] MEDS: INSULIN DETEMIR (LEVEMIR) 100 UNIT/ML SYR SQ SCH (08:41)
[2021-12-11] MEDS: METOPROLOL TARTRATE 25 MG TAB PO SCH (08:42)
[2021-12-11] MEDS: COLCHICINE 0.6 MG EACH PO SCH (08:42)
[2021-12-11] MEDS: ATORVASTATIN 40 MG TAB PO SCH (08:42)
[2021-12-11] MEDS: FUROSEMIDE 40 MG TAB PO SCH (08:42)
[2021-12-11] MEDS: FENOFIBRATE 160 MG TAB PO SCH (08:42)
[2021-12-11] MEDS: ENOXAPARIN 40 MG/0.4 ML SYRINGE SQ SCH (08:42)
[2021-12-11] MEDS ORDERED: LIDOCAINE 1% INJ 10MG/ML (5 ML VIAL-PF) SQ ONE (09:18)
[2021-12-11] MEDS ORDERED: HYDROmorphone 0.5 MG/0.5 ML SYRINGE IVP PRN (11:04)
[2021-12-11 11:39] LABS: Glucose,Whole Blood 210 mg/dL (70-110)
[2021-12-11 11:46] VITALS: PULSE 76
[2021-12-11 12:41] VITALS: BP 152/90; RESP 18; TEMP 98.1
--- NOTE | 2021-12-11 14:35 | P.PN ---
Subjective Progress Note Date: 12/11/21 Principal diagnosis: Pericarditis/empyema. Reevaluated today on 12/08/2021, patient continues to have pigtail catheter in place, continues to have purulent drainage, cultures remain negative. Patient remains on vancomycin and cefepime as per infectious disease on the case. WBC c ount of 13.3, no thrombolytic instillation done today. Patient is scheduled to have a repeat CT of the chest without contrast today and decision will be made whether more Lasix to be instilled in the right pleural space. Reevaluated today on 12/09/2021, patient seems to be doing well except he is c omplaining of pain at the pigtail catheter insertion site. No cough no wheezing no shortness of breath. He remains on room air, O2 sats is 96%. CT of the chest yesterday showed significant improvement in his empyema, still receiving vancomycin and cefepime as per infectious disease on the case. Cultures have been negative so far. Patient will likely have his pigtail catheter removed today, and I believe the patient could be considered to be discharged home if cleared by infectious disease, and decision on antibiotics will be made by infectious disease. Reevaluated today on 12/10/2021, patient is doing well, his pigtail catheter was removed yesterday, remains on antibiotics, cultures are now showing out for hemolytic strep, patient will be seen by infectious disease today, and decide on antibiotics, route, and length of treatment. In the meantime the patient doing well clinically. Feeling much better since the catheter was removed. Progress note dated 12/11/2021. This is a patient who's been in the hospital for 8 days. He was admitted with a diagnosis of empyema. He's currently on room air. He's not receiving any IV fluids. The infectious disease doctor has recommended Rocephin, via PICC line, for 2 weeks. The patient's hoping to be discharged home. No new laboratory today other than a glucose of 210. His most recent chest x-ray from December 10, shows a very small stable right pleural fluid collection. We did have an opportunity to speak to the interventional radiologist who thought that the fluid collection was rather small and additional drainage catheter was not necessary. Objective - Vital Signs Vital signs: Vital Signs Temp 98.1 F 12/11/21 12:30 Pulse 76 12/11/21 12:30 Resp 18 12/11/21 12:30 BP 152/90 12/11/21 12:30 Pulse Ox 97 12/11/21 12:30 FiO2 Intake & Output 12/10/21 12/11/21 12/11/21 18:59 06:59 18:59 Intake Total 680 2750 888 Output Total 1750 Balance -1070 2750 888 Intake: Intake, IV Titration 50 50 Amount ceFAZolin 2 gm In Sodium 50 50 Chloride 0.9% 50 ml @ 100 mls/hr IVPB Q8HR [facility] Rx# :[id number] Oral 680 2700 838 Output: Urine 1750 Other: Voiding Method Toilet Toilet Toilet Urinal Urinal Urinal - Exam No acute distress, oriented 3. No respiratory distress. Patient on room air. HEENT examination is grossly unremarkable. Neck supple. Full range of motion. No adenopathy thyromegaly or neck vein distention. Cardiovascular examination reveals regular rhythm rate. S1-S2 normal. No S3 or S4. No discernible murmur noted. Lungs reveal slightly diminished breath sounds on the right. No wheezes. No crackles. No rhonchi. Abdomen soft bowel sounds are heard. No masses or tenderness. Extremities are intact. No cyanosis clubbing or edema. Skin is without rash or lesion. Neurologic examination is brief but nonfocal. - Labs CBC & Chem 7: 12/09/21 07:13 12/10/21 03:42 Labs: Abnormal Lab Results - Last 24 Hours (Table) 12/10/21 12/10/21 12/11/21 Range/Units 16:29 19:50 06:20 POC Glucose (mg/dL) 146 H 226 H 120 H (70-110) mg/dL 12/11/21 Range/Units 11:37 POC Glucose (mg/dL) 210 H (70-110) mg/dL Microbiology - Last 24 Hours (Table) 12/05/21 12:25 Anaerobic Culture - Final Pleural Fluid Assessment and Plan Assessment: Acute right-sided empyema, status post pigtail catheter placement by interventional radiology, postop day #6. Status post administration of TPA, to help drain the loculated pleural effusion. This was done 3 times. Recent right lower lobe pneumonia. Type 2 diabetes mellitus. COPD, stable. Obstructive sleep apnea syndrome, noncompliant with CPAP. Plan: Plan dated 12/11/2021. The patient is quite stable. From our perspective, he could be considered for discharge. Infectious disease doctor is recommending Rocephin for 2 weeks, via a PICC line. The patient's currently on room air. He's not receiving any IV fluids. Labs, x-rays, medications are reviewed. The patient's prognosis is thought to be generally good. Time with Patient: Less than 30
--- NOTE | 2021-12-12 09:51 | IR ---
PICC LINE PLACEMENT: HISTORY: Infection requiring long-term antibiotic therapy PROCEDURE: Ultrasound and fluoroscopic guidance of PICC line placement. COMPLICATIONS: None ANESTHESIA: 1. 1% Lidocaine locally. FINDINGS/TECHNIQUE: The procedure was explained to the patient. The risks, complications, benefits and alternatives were discussed and any questions were answered. Informed consent was obtained. The patient was placed supine on the fluoroscopic table and prepped and draped in the usual sterile fash ion. Utilizing a 21 gauge needle and sonographic and fluoroscopic guidance, access in the left basi lic vein was achieved and there is placement of a 0.018 guidewire. The vein is patent. A 4-F sheath was placed over the guidewire. The guidewire and dilator were removed and a 4-F. PICC line was plac ed through the sheath with the tip at the level of the SVC. The sheath was removed, the catheter was flushed and sutured into position. The patient was stable throughout the procedure and remained sta ble upon discharge from the Department of Radiology. The vein puncture was patent under ultrasound. A small scale image was obtained to document patency of the vein punctured. All elements of the maximal barrier technique were utilized. FLUOROSCOPY TIME: 0.5 minutes and one image submitted IMPRESSION: Successful PICC line placement under ultrasound and fluoroscopic guidance.
== END 2021-12-11 15:35 | disposition home health service (06) | DRG 177 ==
LOC: 3SCARD 17:49
PROVIDERS: ADMIT Internal Medicine; ATTEND Internal Medicine
PROC: 0W9930Z Drainage of Right Pleural Cavity with Drainage Device, Percutaneous Approach (ICD-10-PCS; 2021-12-07)
PROC: 02HV33Z Insertion of Infusion Device into Superior Vena Cava, Percutaneous Approach (ICD-10-PCS; principal; 2021-12-11 10:05)
DX: J86.9 Pyothorax without fistula (principal); J96.01 Acute respiratory failure with hypoxia; T82.524A Displacement of infusion catheter, initial encounter; B37.89 Other sites of candidiasis; J94.0 Chylous effusion; I82.612 Acute embolism and thrombosis of superficial veins of left upper extremity; J98.11 Atelectasis; E11.9 Type 2 diabetes mellitus without complications; J44.9 Chronic obstructive pulmonary disease, unspecified; E66.9 Obesity, unspecified; K21.9 Gastro-esophageal reflux disease without esophagitis; G47.33 Obstructive sleep apnea (adult) (pediatric); E78.5 Hyperlipidemia, unspecified; B95.4 Other streptococcus as the cause of diseases classified elsewhere; Y82.8 Other medical devices associated with adverse incidents; R60.0 Localized edema; I48.91 Unspecified atrial fibrillation; R79.82 Elevated C-reactive protein (CRP); M54.9 Dorsalgia, unspecified; Z68.35 Body mass index [BMI] 35.0-35.9, adult; Z87.891 Personal history of nicotine dependence; Z87.01 Personal history of pneumonia (recurrent); Z82.5 Family history of asthma and other chronic lower respiratory diseases; Z81.1 Family history of alcohol abuse and dependence; Z79.899 Other long term (current) drug therapy; Z79.84 Long term (current) use of oral hypoglycemic drugs; Z91.048 Other nonmedicinal substance allergy status; Z80.1 Family history of malignant neoplasm of trachea, bronchus and lung; Z91.19 Patient's noncompliance with other medical treatment and regimen
CPT/HCPCS: 32551; 36410; 36573; 71045; 71046; 71250; 76937; 76942; 80048; 80053; 80202; 82150; 82565; 82945; 83036; 83615; 84157; 84443; 85025; 85027; 85610; 85652; 85730; 86140; 87070; 87075; 87102; 87116; 87205; 87206; 88108; 88305; 88341; 88342; 89050; 94640; 94760

== ENCOUNTER → 2022-03-14 | Day surgery (SDC) | payer BC ==
[2022-03-12 15:50] VITALS: BMI 36.1
[~2022-03-14] MED LIST changes: +LACTATED RINGERS 1,000 ML IV SCH; +LIDOCAINE 1% (10MG/ML) FOR IV START INTRADERMA PRN; +PROPOFOL 10 MG/ML 20 ML VIAL IV ONE; -VANCOMYCIN 2,500 MG in SODIUM CHLORIDE 0.9% 500 ML 500 ML IVPB ONE
[2022-03-14 07:06] VITALS: RESP 16; TEMP 97.4
[2022-03-14 07:06] LABS: Glucose,Whole Blood 135 mg/dL (70-110)
--- NOTE | 2022-03-14 07:57 | P.PCN ---
Date of Procedure: 03/14/22 Procedure(s) Performed: BRIEF HISTORY: Patient is a 51-year-old pleasant white male scheduled for an elective colonoscopy as a part of screening for colon cancer/positive cologuard. PROCEDURE PERFORMED: Colonoscopy with snare polyp rectum and Endo Clip placement. PREOPERATIVE DIAGNOSIS: Screening for colon cancer/positive cologuard. IV sedation per Anesthesia. PROCEDURE: After informed consent was obtained, the patient, was brought into the endoscopy unit. IV sedation was administered by Anesthesia under continuous monitoring. Digital rectal examination was normal. Initially the Olympus CF-160 flexible video colonoscope was then inserted in the rectum, gradually advanced into the cecum without any difficulty. Careful examination was performed as the scope was gradually being withdrawn. Ileocecal valve and the appendiceal orifice were visualized and appeared normal. Prep was excellent. Mucosa of the cecum, ascending colon, appeared normal. In the hepatic flexure there was a 3 cm broad-based polyp that was removed by snare polypectomy and a polypectomy was accomplished followed this Endo Clip was placed to prevent post-polypectomy bleed. In the proximal transverse colon there was a 2 cm polyp removed by snare polypectomy followed by Endo Clip placement. In the descending colon there was a 1 cm broad-based polyp removed by snare polypectomy and in the sigmoid: There was another 1 m polyp by snare polypectomy. Rest of thedes transverse colon, descending colon, sigmoid colon, and rectum appeared normal. Retroflexion was performed in the rectum and no lesions were seen. The patient tolerated the procedure well. IMPRESSION: 3 cm broad-based hepatic flexure polyp status post piecemeal snare polypectomy and complete polypectomy accomplished followed by Endo Clip placement 2 cm broad-based transverse colon polyp status post polypectomy followed by Endo Clip placement 1 cm broad-based descending colon polyp status post polypectomy 1 cm; sigmoid polyp status post polypectomy RECOMMENDATIONS: Findings of this examination were discussed with the patientas well as her his family. He was advised to follow with the biopsy results. He'll be seen in office in 2 weeks. Based the biopsy results will plan a repeat colonoscopy in one to 2 years.
[2022-03-14 08:54] VITALS: BP 125/76; PULSE 68
== END ==
LOC: ORWHC2ENDO 06:02 → MERGE 10:00
PROVIDERS: ATTEND Internal Medicine Gastroenterology
DX: R19.5 Other fecal abnormalities (principal); I10 Essential (primary) hypertension; E78.5 Hyperlipidemia, unspecified; J44.9 Chronic obstructive pulmonary disease, unspecified; G47.33 Obstructive sleep apnea (adult) (pediatric); E11.9 Type 2 diabetes mellitus without complications; Z79.899 Other long term (current) drug therapy
CPT/HCPCS: 45382; 45385; J2704; 88305

== ENCOUNTER → 2023-05-17 | Outpatient (CLI) | payer BC ==
--- NOTE | 2023-05-17 19:55 | CTL ---
EXAMINATION TYPE: CT Low Dose Lung DATE OF EXAM: 05/17/2023 5:11 PM CLINICAL INDICATION:Male, 52 years old with history of Z12.2 ENCNTR SCREEN FOR MALIGNANT NEOPLASM OF RESP; former smoker quit in 2021 (5 packs per day x 35 years), prior ct chest without contrast on pac s , history of tobacco use. COMPARISON: 12/08/2021 TECHNIQUE: Multiple axial non-contrast scans were obtained from approximately the lung apices through the upper abdomen. Coronal and sagittal reformatted images were obtained. Low dose technique was uti lized. CT DLP: 95.6 mGycm, Automated exposure control for dose reduction was used. CT Contrast: Contrast used: None Oral contrast used: None FINDINGS: ======== Lack of intravenous contrast and low dose technique limits the evaluation of the vascular and soft ti ssue structures. LUNGS: No evidence of pulmonary fibrosis. No evidence of focal consolidation, pneumothorax or pleural effusion. Mild centrilobular emphysema changes seen throughout the lungs. Nodules: RUL: None. RML: None. RLL: None. STEPHEN: None. LLL: None. AIRWAY: Patent and unremarkable. HEART: Size within normal limits. Moderate severe coronary artery atherosclerosis. MEDIASTINUM: No gross evidence of adenopathy. VASCULATURE: No aortic aneurysm. MUSCULOSKELETAL: Mild disc degeneration changes are present throughout the thoracolumbar spine. SOFT TISSUES/LYMPH NODES: Unremarkable. LOWER NECK: No significant findings. UPPER ABDOMEN: Diffuse low-attenuation to the liver parenchyma. IMPRESSION: 1. No pulmonary nodules. 2. Mild emphysema. 3. Moderate severe coronary atherosclerosis. 4. Hepatic steatosis. CT LUNG RAD AND CT CHEST RECOMMENDATION: Lung-Rad 1 Negative: Continue annual screening with LDCT in 12 months. S Modifier (other clinically significant findings): None Recommend smoking cessation (if current smoker), or continuation of smoking cessation (if prior smoke r). Annual screening for lung cancer with low-dose computed tomography is recommended in adults ages 55 to 77 years who have a 30 pack-year smoking history and currently smoke or have quit within the pa st 15 years. Screening should be discontinued once a person has not smoked for 15 years or develops a health problem that substantially limits life expectancy or the ability or willingness to have curat nguyen lung surgery. Lung rads 2021 [email or web address]
== END | disposition home or self-care (01) ==
LOC: RADCTMAIN 16:42
PROVIDERS: ATTEND Internal Medicine Critical Care Medicine
DX: Z12.2 Encounter for screening for malignant neoplasm of respiratory organs (principal); J43.2 Centrilobular emphysema; I25.10 Atherosclerotic heart disease of native coronary artery without angina pectoris; K76.0 Fatty (change of) liver, not elsewhere classified; Z87.891 Personal history of nicotine dependence
CPT/HCPCS: 71271

== ENCOUNTER → 2024-05-22 | Outpatient (CLI) | payer BC ==
--- NOTE | 2024-05-25 06:38 | CTL ---
EXAMINATION TYPE: CT Low Dose Lung DATE OF EXAM ORDERED: 05/22/2024 COMPARISON: Prior study May 17, [address] CLINICAL INDICATION: Male, 53 years old with history of Z12.2 LUNG CANCER SCREENING Z87.891; [facility], for shant tobacco user, Lung cancer screening, History of Smoking/tobacco use. TECHNIQUE: Low dose computed tomography scan was performed through the chest at 1 mm thick sections a nd reconstructed images in multiple planes at 1 mm and [address] DLP: 102.[address] CTDI: 2.6 mGy Automated exposure control for dose reduction was used. CT DIAGNOSTIC QUALITY: Satisfactory FINDINGS: Suboptimal multifocal groundglass opacities with nodularity and/or more likely nodular cons olidation throughout the right mid to lower lung. Nodules: RUL: None. RML: None. RLL: None. STEPHEN: None. LLL: None. LUNGS: COPD: Severity: Mild Fibrosis: Severity: None Lymph nodes: None Other findings: None RIGHT PLEURAL SPACE: Effusion: None Calcification: None Thickening: None Pneumothorax: None LEFT PLEURAL SPACE: Effusion: None Calcification: None Thickening: None Pneumothorax: None HEART: Heart Size: Normal Coronary Calcification: Moderate Pericardial Effusion: None OTHER FINDINGS: Upper abdomen: None Bony thorax: Slight scoliotic curvature. Supraclavicular region: None Other: None IMPRESSION: No definitive new greater than 6 mm pulmonary nodules. Multifocal groundglass opacities a nd small areas of nodular consolidation in the right lower lung suspicious for acute infectious proce ss. Correlate clinically. CT LUNG RAD AND CT CHEST RECOMMENDATION: S Modifier (other clinically significant findings): [facility], , 05/25/2024 6:35 AM
== END | disposition home or self-care (01) ==
LOC: RADCTMAIN 15:00
PROVIDERS: ATTEND Internal Medicine Critical Care Medicine
DX: Z12.2 Encounter for screening for malignant neoplasm of respiratory organs (principal); J44.9 Chronic obstructive pulmonary disease, unspecified; Z87.891 Personal history of nicotine dependence
CPT/HCPCS: 71271

== ENCOUNTER 2024-06-08 19:41 | Outpatient (CLI) | payer BC ==
--- NOTE | 2024-06-15 22:01 | P.PCN ---
Date of Procedure: 06/08/24 Operative Findings: CPAP titration report Date of service is 11/15/2024 History 52-year-old male patient diagnosed having sleep apnea in the past and the patient has failed treatment. The patient recently had a bout of empyema and he was treated and is fully recovered. He does have also underlying COPD. He has diabetes mellitus, paroxysmal A-fib and is a previous smoker. A home sleep study was obtained on 05/17/2024 and the patient was diagnosed having severe CALVIN with an AHI of 63.5. He has previous history of CPAP intolerance. Based on that, in lab CPAP titration was requested Pertinent physical findings Weight is 282 with a BMI of 37.2 Technical description The patient was studied using a standard complex polysomnography protocol that included recording of the Lead II EKG, Central, occipital and frontal EEG, right and left outer canthus EOG, submental EMG, right and left anterior tibialis EMG, respiratory airflow by thermocouple and or pressure/flow transducer, respiratory efforts by abdominal and thoracic PVDF belts, oxygen saturation by cable oximetry. Position by observation synchronized the PSG. Equipment used: ENEFpro. Stepwise CPAP titration was done to limit all obstructive respiratory events Sleep architecture The total recording duration was 368.5 minutes. Total sleep time was 319.5 minutes. The patient had a 38.5 minutes of wake after sleep onset time. The overall sleep efficiency was 86.7%. Latency to sleep onset was 10 minutes. The latest REM sleep was 61.5 minutes. The sleep architecture was characterized by 5% stage I, 60.3% stage II, 10.6% stage III and a total of 24.1% REM sleep. The total arousal index was 8.8 CPAP titration summary The patient was started on CPAP therapy initiated pressure of 9 cm of water and the pressure was gradually increased by increments of 1 cm to reach a maximum CPAP pressure of 11 cm of water. I carefully reviewed the CPAP titration taking about the patient's sleep stage and body position. The patient's obstructive respiratory events improved with CPAP therapy at a pressure of 11 cm of water there was adequate control of the obstructive respiratory events and the patient had no oxygen saturation elevated sleep stages including REM sleep. Sleep continuity The patient had a total of 47 arousals with an index of 8.8. The respiratory arousal index was 0.6 Periodic limb movement summary A total of 289 periodic limb movements were counted with an index of 54.3. There was a total of 7 periodic limb movement activity with arousals with an index of 1.3 Cardiac summary Average heart rate was 70 with a minimum heart rate of 68. The patient's cardiac rhythm was sinus with occasional PVCs. Assessment Severe symptomatic CALVIN with an AHI of 63.5. The patient was able to tolerate CPAP therapy and the patient was titrated to a CPAP pressure of 11 cm of water with a C-Flex of 3 Chronic hypersomnia sleepiness, secondary to obstructive sleep apnea Obesity with a BMI of 36.3 COPD Previous history of empyema Diabetes mellitus type 2 Paroxysmal atrial fibrillation Plan Will treat this patient with a CPAP pressure of 11 cm of water and the patient is going to be offered a AirFit N30 I standard size headgear with a small nasal pillow The patient has had issues with tolerance in the past, nevertheless the current titration was successful and the patient showed good tolerability. Encourage weight loss Optimize sleep hygiene measures Encourage maintaining a regular sleep schedule Optimize COPD The patient to see me back in 30 to 90 days to assess clinical response and compliancy.
== END 2024-06-09 04:40 | disposition home or self-care (01) ==
LOC: 3 N SLEEP 19:41
PROVIDERS: ATTEND Internal Medicine Critical Care Medicine
DX: E11.9 Type 2 diabetes mellitus without complications (principal); G47.33 Obstructive sleep apnea (adult) (pediatric); E66.9 Obesity, unspecified; J44.9 Chronic obstructive pulmonary disease, unspecified; I48.0 Paroxysmal atrial fibrillation; Z99.89 Dependence on other enabling machines and devices; Z68.36 Body mass index [BMI] 36.0-36.9, adult; Z87.09 Personal history of other diseases of the respiratory system; Z91.038 Other insect allergy status; Z91.030 Bee allergy status; Z91.040 Latex allergy status
CPT/HCPCS: 95811